=== PATIENT | female | born 1955 | race African-American/Black ===

== ENCOUNTER 2018-04-06 08:46 | Inpatient (IN) | payer OTHER ==
[2018-04-06] MEDS ORDERED: FAMOTIDINE 20 MG/50 ML IVPB 20 MG/50 ML MG IVPB ONE (09:30)
[2018-04-06] MEDS ORDERED: ONDANSETRON 4 MG/2 ML VIAL ONE (09:30)
--- NOTE | 2018-04-06 09:42 | PDOC ---
History of Present Illness - General Chief Complaint: Pain Stated Complaint: ABD PAIN Time Seen by Provider: 04/06/18 09:09 Past History - Past Medical History Allergies/Adverse Reactions: Allergies Allergy/AdvReac Type Severity Reaction Status Date / Time No Known Allergies Allergy Verified 04/06/18 08:51 Home Medications: Ambulatory Orders Clonazepam [Klonopin] 0.5 mg PO DAILY 07/04/14 Lisinopril [Prinivil -] 30 mg PO DAILY 07/04/14 Escitalopram Oxalate [Lexapro -] 20 mg PO DAILY #30 tablet 07/05/14 metFORMIN HCL [Glucophage -] 500 mg PO DAILY@0700 #30 tablet 07/05/14 Insulin (Levemir) [Levemir Vial] 20 unit SQ HS 04/06/18 Insulin Lispro [Humalog] 9 unit SQ AM 04/06/18 COPD: No Diabetes: Yes (niddm) HTN: Yes Psychiatric Problems: Yes (depression, anxiety) - Suicide/Smoking/Psychosocial Hx Smoking History: Current every day smoker Have you smoked in the past 12 months: Yes Number of Cigarettes Smoked Daily: 2 Information on smoking cessation initiated: Yes 'Breaking Loose' booklet given: 04/06/18 Hx Alcohol Use: No Drug/Substance Use Hx: No Substance Use Type: None *Physical Exam - Vital Signs Last Vital Signs Temp Pulse Resp BP Pulse Ox 98.8 F 93 H 18 162/79 100 04/06/18 08:52 04/06/18 08:52 04/06/18 08:52 04/06/18 08:52 04/06/18 08:52 *DC/Admit/Observation/Transfer - Referrals Referrals: Didi Anderson MD [Primary Care Provider] - - Patient Instructions - Post Discharge Activity
[2018-04-06] MEDS ORDERED: KETOROLAC TROMETHAMINE 30 MG/1 ML VIAL IVPUSH ONE (09:43)
[2018-04-06] MEDS ORDERED: ONDANSETRON 4 MG/2 ML VIAL IVPUSH ONE (09:43)
[2018-04-06] MEDS ORDERED: SODIUM CHLORIDE 1,000 ML IV STA ×2 (09:43→12:38)
[2018-04-06] MEDS ORDERED: KETOROLAC TROMETHAMINE 30 MG/1 ML VIAL ONE (09:53)
[2018-04-06 10:06] LABS: BASO % 0.8 % (0-2.0); HEMATOCRIT 44.6 % (32.4-45.2); HEMOGLOBIN 14.5 GM/dL (10.7-15.3); LYMPH % 9.4 % (8-40); MCH 28.2 pg (25.7-33.7); MCHC 32.4 g/dl (32.0-36.0); MEAN CELL VOLUME 86.9 fl (80-96); MEAN PLT VOLUME 8.7 fl (7.5-11.1); MONO % 2.6 % (3.8-10.2); NEUT % 87.2 % (42.8-82.8); PLATELET COUNT 416 K/MM3 (134-434); RBC 5.13 M/mm3 (3.60-5.2); RDW 13.9 % (11.6-15.6)
[2018-04-06 10:08] LABS: URINE APPEARANCE CLEAR; URINE BILIRUBIN NEGATIVE (<2.0 mg/dL); URINE COLOR LTYELLOW; URINE GLUCOSE (UA) 3+ (NEGATIVE); URINE KETONE 1+ (NEGATIVE); URINE LEUK ESTERASE NEGATIVE (NEGATIVE); URINE NITRITE NEGATIVE (NEGATIVE); URINE PROTEIN NEGATIVE (NEGATIVE); URINE UROBILINOGEN NEGATIVE mg/dL (0.2-1.0)
--- NOTE | 2018-04-06 10:26 | PDOC ---
History of Present Illness - General Chief Complaint: Pain Stated Complaint: ABD PAIN Time Seen by Provider: 04/06/18 09:09 History Source: Patient Exam Limitations: No Limitations - History of Present Illness Travel History: No Initial Comments: 04/06/18 10:00 62-year-old female with history of diabetes presents to ED with complaints of lower periumbilical cramping that awoke her from sleep at 2 AM associated intermittent nausea. Patient denies constipation, diarrhea, fever, chills or urinary complaints. Patient also denies recent change in medications, recent travel, recent illness. Patient states did eat late last night which consisted of cornbread and some meat but states her ate the same with no symptoms. Patient has no other complaints at this time including radiation of pain to the upper abdomen or back. Patient is no complaints of respiratory or cardiac symptoms Timing/Duration: reports: constant Quality: reports: mild, moderate, cramping Abdominal Pain Onset Location: reports: periumbilical Pain Radiation: reports: no radiation Activities at Onset: reports: none Aggravating Factors: improves with: None Alleviating Factors: improves with: None Past History - Travel Traveled outside of the country in the last 30 days: No - Past Medical History Allergies/Adverse Reactions: Allergies Allergy/AdvReac Type Severity Reaction Status Date / Time No Known Allergies Allergy Verified 04/06/18 08:51 Home Medications: Ambulatory Orders Clonazepam [Klonopin] 0.5 mg PO DAILY 07/04/14 Lisinopril [Prinivil -] 30 mg PO DAILY 07/04/14 Escitalopram Oxalate [Lexapro -] 20 mg PO DAILY #30 tablet 07/05/14 metFORMIN HCL [Glucophage -] 500 mg PO DAILY@0700 #30 tablet 07/05/14 Insulin (Levemir) [Levemir Vial] 20 unit SQ HS 04/06/18 Insulin Lispro [Humalog] 9 unit SQ AM 04/06/18 COPD: No Diabetes: Yes (niddm) HTN: Yes Psychiatric Problems: Yes (depression, anxiety) - Suicide/Smoking/Psychosocial Hx Smoking History: Current every day smoker Have you smoked in the past 12 months: Yes Number of Cigarettes Smoked Daily: 2 Information on smoking cessation initiated: Yes 'Breaking Loose' booklet given: 04/06/18 Hx Alcohol Use: No Drug/Substance Use Hx: No Substance Use Type: None Patient Lives Alone: No Lives with/in: spouse/SO Review of Systems - Review of Systems Able to Perform ROS?: No Constitutional: No: Symptoms Reported HEENTM: No: Symptoms Reported Respiratory: No: Symptoms reported Cardiac (ROS): No: Symptoms Reported ABD/GI: Yes: Nausea, Abdominal cramping. No: Constipated, Diarrhea, Poor Appetite, Poor Fluid Intake : No: Symptoms Reported Musculoskeletal: No: Symptoms Reported Integumentary: No: Symptoms Reported Neurological: No: Symptoms reported Endocrine: No: Symptoms Reported *Physical Exam - Vital Signs Last Vital Signs Temp Pulse Resp BP Pulse Ox 98.8 F 93 H 18 162/79 100 04/06/18 08:52 04/06/18 08:52 04/06/18 08:52 04/06/18 08:52 04/06/18 08:52 - Physical Exam General Appearance: Yes: Nourished, Appropriately Dressed. No: Apparent Distress HEENT: positive: Pharynx Normal, Pale Conjunctivae Neck: positive: Normal Thyroid, Supple Respiratory/Chest: positive: Lungs Clear, Normal Breath Sounds. negative: Respiratory Distress, Accessory Muscle Use Cardiovascular: positive: Regular Rhythm, Regular Rate. negative: Murmur Gastrointestinal/Abdominal: positive: Normal Bowel Sounds, Soft, Distended ( mild generalized), Tenderness (mild lower periumbilical with deep palpation). negative: Guarding, Rebound, Hernia, Mass Musculoskeletal: negative: CVA Tenderness Extremity: positive: Normal Capillary Refill. negative: Pedal Edema Integumentary: positive: Normal Color, Warm, Moist. negative: Rash Neurologic: positive: Motor Strength 5/5 (ambulatory) Heart Score/ECG Review - ECG Intrepretation Rhythm: Regular Rhythm (NSR 81, inverted T waves in v5, v6 I, avl. unchanged from 2013 and 2010) ED Treatment Course - LABORATORY CBC & Chemistry Diagram: 04/06/18 09:55 04/06/18 09:55 - ADDITIONAL ORDERS Additional order review: Laboratory Results 04/06/18 09:55 Urine Color Ltyellow Urine Appearance Clear Urine pH 5.0 Ur Specific [place] 1.028 Urine Protein Negative Urine Glucose (UA) 3+ H Urine Ketones 1+ H Urine Blood Negative Urine Nitrite Negative Urine Bilirubin Negative Urine Urobilinogen Negative Ur Leukocyte Esterase Negative 04/06/18 09:55 RBC 5.13 MCV 86.9 MCHC 32.4 RDW 13.9 MPV 8.7 Neutrophils % 87.2 H D Lymphocytes % 9.4 D Monocytes % 2.6 L Eosinophils % 0.0 D Basophils % 0.8 - RADIOLOGY Radiology Studies Ordered: Category Date Time Status KUB (KID UR & BLAD) [RAD] Stat Radiology 04/06/18 09:43 Ordered - Medications Given in the ED: ED Medications Discontinued Medications Generic Name Dose Route Start Last Admin Trade Name Reba PRN Reason Stop Dose Admin Ketorolac Tromethamine 30 mg 04/06/18 09:43 04/06/18 09:58 Toradol Injection - IVPUSH 04/06/18 09:44 30 mg ONCE ONE Administration Ondansetron HCl 4 mg 04/06/18 09:43 04/06/18 09:52 Zofran Injection IVPUSH 04/06/18 09:44 4 mg ONCE ONE Administration Medical Decision Making - Medical Decision Making 04/06/18 10:00 Patient with lower abdominal cramping since 2 AM this morning. Patient on exam with mild lower abdominal tenderness along with mild generalized abdominal distention. Patient ordered for labs, urine, KUB, antiemetics and IV fluids along with Toradol. 04/06/18 11:02 Laboratory Tests 04/06/18 04/06/18 04/06/18 09:55 09:55 09:55 WBC 15.0 H Hgb 14.5 Hct 44.6 Neutrophils % 87.2 H D Monocytes % 2.6 L Sodium 137 Potassium 4.3 Chloride 103 Carbon Dioxide 25 Anion Gap 9 BUN 20 H Creatinine 1.3 H Random Glucose 290 H Calcium 9.8 Total Bilirubin 0.2 AST 16 ALT 26 Alkaline Phosphatase 87 Creatine Kinase Lipase 232 Urine Glucose (UA) 3+ H Urine Ketones 1+ H Urine Nitrite Negative Ur Leukocyte Esterase Negative 04/06/18 10:50 WBC Hgb Hct Neutrophils % Monocytes % Sodium Potassium Chloride Carbon Dioxide Anion Gap BUN Creatinine Random Glucose Calcium Total Bilirubin AST ALT Alkaline Phosphatase Creatine Kinase Pending Lipase Urine Glucose (UA) Urine Ketones Urine Nitrite Ur Leukocyte Esterase pt ordered for abd ct w/ contrast to r/o diverticulitis. zosyn ordered 04/06/18 14:[address] Anderson Recommended to admit to the hospitalist. 04/06/18 14:28 Case discussed with hospice and is requesting results of CT prior to acceptance 04/06/18 15:[address] shows no diverticulitis and noted append. cecum thickening 15mm. Consult placed to Dr. Red. Admitted to med/ surg *DC/Admit/Observation/Transfer Diagnosis at time of Disposition: Sepsis, Abdominal pain - Discharge Dispostion Decision to Admit order: Yes - Referrals Referrals: Didi Anderson MD [Primary Care Provider] - - Patient Instructions - Post Discharge Activity
[2018-04-06 10:36] LABS: ANION GAP 9 (8-16); BLOOD UREA NITROGEN 20 mg/dL (7-18); CALCIUM 9.8 mg/dL (8.5-10.1); CHLORIDE 103 mmol/L (98-107); CO2 25 mmol/L (21-32); CREATININE 1.3 mg/dL (0.55-1.02); GLUCOSE,RANDOM 290 mg/dL (74-106); POTASSIUM 4.3 mmol/L (3.5-5.1); SGOT/AST 16 U/L (15-37); SGPT/ALT 26 U/L (12-78); SODIUM 137 mmol/L (136-145)
[2018-04-06 10:38] LABS: ALK PHOS 87 U/L (45-117); BILIRUBIN,TOTAL 0.2 mg/dL (0.2-1.0); TOT PROT 7.8 g/dl (6.4-8.2)
[2018-04-06 10:45] LABS: LIPASE 232 U/L (73-393)
--- NOTE | 2018-04-06 11:19 | EKG ---
Test Reason : Blood Pressure : / mmHG Vent. Rate : 081 BPM Atrial Rate : 081 BPM P-R Int : 138 ms QRS Dur : 078 ms QT Int : 384 ms P-R-T Axes : 067 036 125 degrees QTc Int : 446 ms NORMAL SINUS RHYTHM ABNORMAL ECG Confirmed by MD SANIYA, STEFAN ([id number]) on 04/06/2018 11:19:09 AM Referred By: Confirmed By:STEFAN KOTHARI MD
[2018-04-06] MEDS ORDERED: PIPERACILLIN/TAZOB 4.5 GM 4.5 GM in DEXTROSE 5%-WATER 100 ML IVPB ONE ×2 (12:44→19:00)
[2018-04-06] MEDS ORDERED: PIPERACILLIN/TAZOB 4.5 GM 4.5 GM/100 ML BAG IVPB ONE (13:08)
--- NOTE | 2018-04-06 16:09 | CONSULT ---
- Consultation REQUESTING PROVIDER: Satnam Red CONSULT REQUEST: We have been asked to surgically evaluate this patient for periumbilical pain, ? appy PCP: Bipin Klein MD HPI: Called to mil 62 yo female with PMHx as noted below, c/o acute onset of pain that began at 3AM...awoke her from her sleep. States pain started around her "belly button". Had a few episodes of nausea followed by non-bilious/non- bloody vomiting. Never radiated (remained localized). Never experienced this before. Never took anything to quell the abd pain/discomfort. Had a solid bm early this morning. Last meal eaten was dinner which consisted of meat and cornbread ( ate same meal and is asymptomatic). Patient states her last colonoscopy was ~ 3 years ago (Dr. Rome) and doesn't remember the results. She has a CT scan while in ED which identified questionable thickening of base of appendix, fills with contrast, note: diverticulois (not acute process), non- obstructive hiatal hernia, otherwise unremarkable study. Currently, resting comfortably w/o complaint. Denies n/v/f/c, CP, SOB, cough, loss of appetite, trauma. abdominal distension, melena, hematochezia, dysuria, frequency, urgency, hesitancy, hematuria, flank pain, bladder or bowel incontinence. Smoking History: Current every day smoker PMHx: NIDDM, Depression, Anxiety, HLD, DM, PAD PSHx: Denies. Home Meds Clonazepam [Klonopin] 0.5 mg PO DAILY Lisinopril [Prinivil -] 30 mg PO DAILY Escitalopram Oxalate [Lexapro -] 20 mg PO DAILY metFORMIN HCL [Glucophage -] 500 mg PO DAILY@0700 Insulin (Levemir) [Levemir Vial] 20 unit SQ HS Insulin Lispro [Humalog] 9 unit SQ AM Allergies: NKDA ROS: CONSTITUTIONAL: Absent: diaphoresis, generalized weakness, malaise, weight change CARDIOVASCULAR: Absent: syncope, palpitations, irregular heart rate, lightheadedness, peripheral edema RESPIRATORY: Absent: dyspnea with exertion, wheezing, stridor, hemoptysis GASTROINTESTINAL:Absent: see hpi. GENITOURINARY: Absent: see hpi. MUSCULOSKELETAL: Absent: myalgia, arthralgia, joint swelling, neck pain SKIN: Absent: rash, itching, pallor HEMATOLOGIC/IMMUNOLOGIC: Absent: easy bleeding, easy bruising, lymphadenopathy NEUROLOGIC: Absent: headache, focal weakness, paresthesias, dizziness, seizure, mental status changes, PSYCHIATRIC: Absent: anxiety, depression, suicidal or homicidal ideation, hallucinations. PE: GENERAL: A&Ox3 HEAD: NC.AT. EYES: PERRL, sclera anicteric, conjunctiva clear. NECK: Normal ROM, supple without lymphadenopathy, JVD, or masses. PULM: CTA bilat anteriorly. COR: RRR ABD: Soft, NT, ND, normoactive bowel sounds, NEGATIVE McBurney's/Psoas/Rovsing/ Obturator signs. BACK: Negative CVAT bilat UE: 2+ pulses, warm, well-perfused. No cyanosis. Cap refill <2 seconds. No peripheral edema. LE: 2+ pulses, warm, well-perfused. No calf tenderness. No peripheral edema. NEUROLOGICAL: Normal speech, gait not observed. PSYCH: Cooperative. Good eye contact. Appropriate mood and affect. SKIN: Warm, dry, normal turgor, no rashes or lesions noted. Last Vital Signs Temp Pulse Resp BP Pulse Ox 97.8 F 57 L 18 140/68 100 04/06/18 11:50 04/06/18 11:50 04/06/18 11:50 04/06/18 11:50 04/06/18 11:50 CBC, BMP 04/06/18 09:55 04/06/18 09:55 Urine Test Results Urine Color Ltyellow 04/06/18 09:55 Urine Appearance Clear 04/06/18 09:55 Urine pH 5.0 (5.0-8.0) 04/06/18 09:55 Ur Specific [place] 1.028 (1.001-1.035) 04/06/18 09:55 Urine Protein Negative (NEGATIVE) 04/06/18 09:55 Urine Glucose (UA) 3+ (NEGATIVE) H 04/06/18 09:55 Urine Ketones 1+ (NEGATIVE) H 04/06/18 09:55 Urine Blood Negative (NEGATIVE) 04/06/18 09:55 Urine Nitrite Negative (NEGATIVE) 04/06/18 09:55 Urine Bilirubin Negative (<2.0 mg/dL) 04/06/18 09:55 Ur Leukocyte Esterase Negative (NEGATIVE) 04/06/18 09:55 Problem List - Problems (1) Abdominal pain Assessment/Plan: Patient comes to ED with c/o periumbilical pain, doesn't radiate. Has a leukocytosis of 15K, afebrile and asymptomatic. CT scan with questionable thickening of base of appendix yet fills with contrast. Can't r/o developing early acute appendicitis at this time. 1. Admit for observation --> Hospitalist Service 2. NPO / IVF 3. Tight glycemic control 4. Cont IVABX --> Zosyn 5. ID/[place] consulted 6. Tylenol for fever > 100.3F 7. Coags 8. Will re-eval in AM Above plan discussed with Dr. Satnam Red and agrees. Code(s): R10.9 - UNSPECIFIED ABDOMINAL PAIN Qualifiers: Abdominal location: periumbilical Qualified Code(s): R10.33 - Periumbilical pain Visit type - Case Type Case Type: ED Admission - Emergency Emergency Visit: Yes ED Registration Date: 04/06/18 Care time: The patient presented to the Emergency Department on the above date and was hospitalized for further evaluation of their emergent condition. - New patient This patient is new to me today: Yes Date on this admission: 04/06/18
[2018-04-06] MEDS ORDERED: MORPHINE SULFATE 2 MG/ML VIAL IVPUSH PRN (16:34)
[2018-04-06] MEDS ORDERED: ACETAMINOPHEN 325 MG TABLET (FP) PO PRN (16:34)
[2018-04-06] MEDS ORDERED: SODIUM CHLORIDE 1,000 ML IV SCH (16:45)
--- NOTE | 2018-04-06 17:04 | HP ---
Admitting History and Physical - Primary Care Physician PCP: Dr. Cartagena - Admission History of Present Illness: 62 yo F h/o HLD, IDDM, HTN presented to the ED with abd pain since this morning. Last night she ate some cornbread then went to sleep, pain woke her up around 5am, located [facility] the center [facility], 8/10, constant, throbbing like, a/w nbnb vomiting, no alleviating or aggravating factors. She had not eaten any food since. Had a solid bowel movement this morning. Denies fever, chill, chest pain, shortness of breath, sick contact, urinary sx. History Source: Patient, Family Member - Past Medical History Cardiovascular: Yes: HTN, Hyperlipdemia, Other (PAD) Endocrine: Yes: Diabetes Mellitus - Smoking History Smoking history: Current every day smoker Have you smoked in the past 12 months: Yes Aproximately how many cigarettes per day: 2 - Alcohol/Substance Use Hx Alcohol Use: No - Social History ADL: Independent History of Recent Travel: No Home Medications - Allergies Allergies/Adverse Reactions: Allergies Allergy/AdvReac Type Severity Reaction Status Date / Time No Known Allergies Allergy Verified 04/06/18 08:51 - Home Medications Home Medications: Ambulatory Orders Clonazepam [Klonopin] 0.5 mg PO DAILY 07/04/14 Lisinopril [Prinivil -] 30 mg PO DAILY 07/04/14 Escitalopram Oxalate [Lexapro -] 20 mg PO DAILY #30 tablet 07/05/14 metFORMIN HCL [Glucophage -] 500 mg PO DAILY@0700 #30 tablet 07/05/14 Insulin (Levemir) [Levemir Vial] 20 unit SQ HS 04/06/18 Insulin Lispro [Humalog] 9 unit SQ AM 04/06/18 Review of Systems - Review of Systems Constitutional: reports: Loss of Appetite Cardiovascular: reports: No Symptoms Respiratory: reports: No Symptoms Gastrointestinal: reports: Abdominal Pain, Nausea, Vomiting. denies: Rectal Bleeding, Vomiting Blood Physical Examination Vital Signs: Vital Signs Temperature 98.2 F 04/06/18 16:15 Pulse Rate 68 04/06/18 16:15 Respiratory Rate 17 04/06/18 16:15 Blood Pressure 142/72 04/06/18 16:15 O2 Sat by Pulse Oximetry (%) 100 04/06/18 16:15 Constitutional: Yes: No Distress, Calm Eyes: Yes: Conjunctiva Clear, EOM Intact Neck: Yes: Supple, Trachea Midline Cardiovascular: Yes: Regular Rate and Rhythm Respiratory: Yes: CTA Bilaterally Gastrointestinal: Yes: Normal Bowel Sounds, Tenderness (LLQ, RLQ), Other ( negative rovsing sign, negative obturator sign). No: Tenderness, Rebound Edema: No Labs: CBC, BMP 04/06/18 09:55 04/06/18 09:55 Imaging - Results Cat Scan: Report Reviewed, Image Reviewed Assessment/Plan 62 yo F h/o HTN and IDDM admitted for suspected appendicits. Severe sepsis - likely 2/2 appendicitis - lactate normalized - CTAP unequivical - Cont. zosyn - NPO - NS 100cc/hr - T&S and coag tomorrow DAMIEN - unknown baseline - likely 2/2 severe sepsis - cont. to trend and hydrate HTN - cont. lisinipril IDDM - BGM and ISS FEN - NS 100cc/hr - replete lytes PRN - NPO DVT ppx: scds Karel Lackey PGY3 [phone] Visit type - Emergency Visit Emergency Visit: Yes ED Registration Date: 04/06/18 Care time: The patient presented to the Emergency Department on the above date and was hospitalized for further evaluation of their emergent condition. - New Patient This patient is new to me today: Yes Date on this admission: 04/07/18 - Critical Care Critical Care patient: No Hospitalist Screening - Colonoscopy Questionnaire Colonoscopy Questionnaire: Colonoscopy Questionnaire - Patient: 50 - 75 years old and never had a screening colonoscopy: Unknown History of colon or rectal polyps, or CA: Unknown History of IBD, Crohn's disease or UC: Unknown History of abdominal radiation therapy as a child: Unknown - Relative: 1 with colon or rectal CA, or polyps at age 60 or younger: Unknown Colon or rectal CA diagnosed at age 45 or younger: Unknown Multiple relatives with colon or rectal CA: Unknown - Outcome: Screening Result: Negative Screen
[2018-04-06] MEDS ORDERED: ACETAMINOPHEN 1000 MG/100 ML VIAL (NON FORMULARY) IVPB PRN (18:24)
[2018-04-06 18:25] VITALS: BMI 27.6
[2018-04-06] MEDS ORDERED: clonazePAM 0.5 MG TABLET PO SCH (18:30)
--- NOTE | 2018-04-06 18:31 | PN ---
Teaching Attending Note Name of Resident: Karel Lackey ATTENDING PHYSICIAN STATEMENT I saw and evaluated the patient. I reviewed the resident's note and discussed the case with the resident. I agree with the resident's findings and plan as documented with exceptions below. SUBJECTIVE: 62 yof with PMhx of HTN, HLD, IDDM, ?Depression/anxiety, was in her USOH till last evening when had cornbread, home cooked. Woke up around 5 AM with abdominal pain, generalized lower abdomen and smitha-umbilical region, sharp, associated with nausea, vomiting x 1 non bloody, bilious, prompting her to come to Ed. While in ED, her symptoms improved after receiving toradol and has been feeling better since. Is hungry. Denies any fevers, chills, dark or bloody stools or vomitus, diarrhea or changes in bowels, recent travel, antibiotics, sick contacts, similar prior history. s/p colonosocpy 3 years ago, reportedly non concerning. OBJECTIVE: Vital Signs Period Temp Pulse Resp BP Sys/Mendoza Pulse Ox Last 24 Hr 97.8 F-98.8 F 57-93 16-18 140-162/68-79 100-100 Intake & Output 04/03/18 04/04/18 04/05/18 04/06/18 23:59 23:59 23:59 23:59 Intake Total 1999 Balance 1999 Weight 176 lb 9.6 oz GENERAL: Awake, alert, and fully oriented, in no acute distress. HEAD: Normal with no signs of trauma. EYES: Pupils equal, round and reactive to light, extraocular movements intact, sclera anicteric, conjunctiva clear. No lid lag. EARS, NOSE, THROAT: Ears normal, nares patent, oropharynx clear without exudates. Mildly dry mucous membrane NECK: Soft, supple, no JVD LUNGS: Breath sounds equal, clear to auscultation bilaterally. No wheezes, and no crackles. No accessory muscle use. HEART: S1S2 regular ABDOMEN: Soft, obese, mild tenderness in LMQ, smitha-umbilical region, no tenderness in RLQ or LLQ or lower abdomen currently, no voluntary or involuntary guarding or rigidity, neg for rebound tenderness, neg ROvsing's sign , positive bowel sounds. MUSCULOSKELETAL: Normal range of motion at all joints. No bony deformities or tenderness. No CVA tenderness. UPPER EXTREMITIES: 2+ pulses, warm, well-perfused. No cyanosis. No clubbing. No peripheral edema. LOWER EXTREMITIES: 2+ pulses, warm, well-perfused. No calf tenderness. No peripheral edema. NEUROLOGICAL: Cranial nerves II-XII intact. Normal speech. Gait deferred PSYCHIATRIC: Cooperative. Good eye contact. Appropriate mood and affect. SKIN: Warm, dry, normal turgor, no rashes or lesions noted, normal capillary refill. Home Medications Medication Instructions Recorded Clonazepam [Klonopin] 0.5 mg PO DAILY 07/04/14 Lisinopril [Prinivil -] 30 mg PO DAILY 07/04/14 Escitalopram Oxalate [Lexapro -] 20 mg PO DAILY #30 tablet 07/05/14 metFORMIN HCL [Glucophage -] 500 mg PO DAILY@0700 #30 tablet 07/05/14 Insulin (Levemir) [Levemir Vial] 20 unit SQ HS 04/06/18 Insulin Lispro [Humalog] 9 unit SQ AM 04/06/18 Active Medications Acetaminophen (Ofirmev Injection -) 1,000 mg IVPB Q6H PRN PRN Reason: PAIN LEVEL 6-10 Clonazepam (Klonopin -) 0.5 mg PO DAILY [facility] Sodium Chloride (Normal Saline -) 1,000 mls @ 100 mls/hr IV ASDIR [facility] Last Admin: 04/06/18 18:13 Dose: 100 mls/hr Piperacillin Sod/Tazobactam (Sod 4.5 gm/ Dextrose) 100 mls @ 200 mls/hr IVPB ONCE ONE; Protocol Stop: 04/06/18 19:29 Piperacillin Sod/Tazobactam (Sod 4.5 gm/ Dextrose) 100 mls @ 200 mls/hr IVPB ONCE ONE; Protocol Stop: 04/07/18 01:29 Piperacillin Sod/Tazobactam (Sod 4.5 gm/ Dextrose) 100 mls @ 200 mls/hr IVPB ONCE ONE; Protocol Stop: 04/07/18 07:29 Insulin Aspart (Novolog Vial Sliding Scale -) 1 vial SQ Q6HPO [facility]; Protocol Lisinopril (Prinivil) 30 mg PO DAILY [facility] Morphine Sulfate (Morphine Sulfate) 1 mg IVPUSH Q4H PRN PRN Reason: PAIN LEVEL 7 - 10 Pantoprazole Sodium (Protonix Iv) 40 mg IVPUSH DAILY [facility] Laboratory Results - last 24 hr 04/06/18 04/06/18 04/06/18 09:55 09:55 09:55 WBC 15.0 H RBC 5.13 Hgb 14.5 Hct 44.6 MCV 86.9 MCH 28.2 MCHC 32.4 RDW 13.9 Plt Count 416 D MPV 8.7 Absolute Neuts (auto) 13.0 Neutrophils % 87.2 H D Lymphocytes % 9.4 D Monocytes % 2.6 L Eosinophils % 0.0 D Basophils % 0.8 Nucleated RBC % 0 Sodium 137 Potassium 4.3 Chloride 103 Carbon Dioxide 25 Anion Gap 9 BUN 20 H Creatinine 1.3 H Creat Clearance w eGFR 41.64 Random Glucose 290 H Lactic Acid Calcium 9.8 Total Bilirubin 0.2 AST 16 ALT 26 Alkaline Phosphatase 87 Creatine Kinase Troponin I Total Protein 7.8 Albumin 4.0 Lipase 232 Urine Color Ltyellow Urine Appearance Clear Urine pH 5.0 Ur Specific Lynch 1.028 Urine Protein Negative Urine Glucose (UA) 3+ H Urine Ketones 1+ H Urine Blood Negative Urine Nitrite Negative Urine Bilirubin Negative Urine Urobilinogen Negative Ur Leukocyte Esterase Negative 04/06/18 04/06/18 04/06/18 10:50 11:12 13:15 WBC RBC Hgb Hct MCV MCH MCHC RDW Plt Count MPV Absolute Neuts (auto) Neutrophils % Lymphocytes % Monocytes % Eosinophils % Basophils % Nucleated RBC % Sodium Potassium Chloride Carbon Dioxide Anion Gap BUN Creatinine Creat Clearance w eGFR Random Glucose Lactic Acid 2.3 H* 1.7 Calcium Total Bilirubin AST ALT Alkaline Phosphatase Creatine Kinase 102 Troponin I < 0.02 Total Protein Albumin Lipase Urine Color Urine Appearance Urine pH Ur Specific Lynch Urine Protein Urine Glucose (UA) Urine Ketones Urine Blood Urine Nitrite Urine Bilirubin Urine Urobilinogen Ur Leukocyte Esterase CT A/P results reviewed- reterograde filling of appendix, ?appendicitis vs cecal lesion ASSESSMENT AND PLAN: 62 yof with PMhx of HTN, IDDM, HLD, admitted with abdominal pain, nausea, vomiting, found with SIRS, Possible appendicitis vs cecal lesion. -SIRS, ?Appendicitis vs cecal lesion vs Gastroenteritis (Low on differential) -DAMIEN, likely from vomiting, dehydration, r/o sepsis -Lactic acidosis, from above +/- metformin, seems more from hypovolumia than sepsis -HTN -HLD -IDDM -Depression/anxiety Plan: Discussed with SUrgery MARTÍN Rashid and Infectious Disease Dr. Alonso. CLinical exam not fully consistent with acute appendicitis. However reterograde filling of appendix, cannot r/o the same vs appendix vs cecal lesion. Zosyn, NPO, aggressive IVF, serial abdominal exams. Avoid narcotics unless severe pain to avoid masking of symptoms. Tylenol/Zofran prn. PPI IV. Follow up with surgery for possible intervention. Repeat CT scan, based on clinical course. HOld metformin, Levemir. BGM q6h with ISS HOld ACEI. Ativan IV prn till able to take PO. Escitalopram when able to take PO. DVTPPX with heparin. Dispo pending clinical improvement. Plan discussed with patient in detail, all questions answered. Patient relays full understanding of current CT scan findings, need for close monitoring and agreable with the plan. Total admit time 65 min.
[2018-04-06] MEDS ORDERED: LORazepam 2 MG/ML SDV VIAL IVPUSH PRN (18:59)
[2018-04-06] MEDS: SODIUM CHLORIDE 1,000 ML IV SCH (19:17)
[2018-04-06] MEDS ORDERED: PIPERACILLIN/TAZOBACTAM 4.5 GM VIAL IVPB ONE (19:19)
[2018-04-06] MEDS: LISINOPRIL 20 MG TABLET (FP) PO SCH (19:26)
[2018-04-06] MEDS: INSULIN SLIDING SCALE (NOVOLOG) 1 VIAL SQ SCH (19:27)
--- NOTE | 2018-04-06 20:55 | CON.ID ---
Consult Consult Specialty:: infectious diseases Referred by:: Reason for Consultation:: abd pain,appendicitis - History of Present Illness Chief Complaint: abd pain History of Present Illness: 62-year-old female with history of diabetes presents to ED with complaints of lower periumbilical cramping that awoke her from sleep at 2 AM associated intermittent nausea. according to the patient this happened all suddenly currently patient is stable and doing well.pain still present but much better - History Source History Provided By: Patient Limitations to Obtaining History: No Limitations - Past Medical History Cardio/Vascular: Yes: HTN, Hyperlipdemia, Other (PAD) ...: No Endocrine: Yes: Diabetes Mellitus - Alcohol/Substance Use Hx Alcohol Use: No - Smoking History Smoking history: Current some day smoker Have you smoked in the past 12 months: Yes Aproximately how many cigarettes per day: 2 - Social History ADL: Independent History of Recent Travel: No Home Medications - Allergies Allergies/Adverse Reactions: Allergies Allergy/AdvReac Type Severity Reaction Status Date / Time No Known Allergies Allergy Verified 04/06/18 08:51 - Home Medications Home Medications: Ambulatory Orders Clonazepam [Klonopin] 0.5 mg PO DAILY 07/04/14 Lisinopril [Prinivil -] 30 mg PO DAILY 07/04/14 Escitalopram Oxalate [Lexapro -] 20 mg PO DAILY #30 tablet 07/05/14 metFORMIN HCL [Glucophage -] 500 mg PO DAILY@0700 #30 tablet 07/05/14 Insulin (Levemir) [Levemir Vial] 20 unit SQ HS 04/06/18 Insulin Lispro [Humalog] 9 unit SQ AM 04/06/18 Review of Systems - Review of Systems Constitutional: reports: No Symptoms Eyes: reports: No Symptoms HENT: reports: No Symptoms Neck: reports: No Symptoms Cardiovascular: reports: No Symptoms Respiratory: reports: No Symptoms Gastrointestinal: reports: Abdominal Pain, Nausea Musculoskeletal: reports: No Symptoms Integumentary: reports: No Symptoms Neurological: reports: No Symptoms Endocrine: reports: No Symptoms Hematology/Lymphatic: reports: No Symptoms Psychiatric: reports: No Symptoms Physical Exam Vital Signs: Vital Signs Temperature 98.2 F 04/06/18 18:14 Pulse Rate 78 04/06/18 18:14 Respiratory Rate 18 04/06/18 18:14 Blood Pressure 147/73 04/06/18 18:14 O2 Sat by Pulse Oximetry (%) 95 04/06/18 18:31 Constitutional: Yes: Well Nourished, Calm, Mild Distress Eyes: Yes: Conjunctiva Clear Cardiovascular: Yes: Regular Rate and Rhythm Respiratory: Yes: Regular, CTA Bilaterally Gastrointestinal: Yes: Normal Bowel Sounds, Soft Musculoskeletal: Yes: WNL Extremities: Yes: WNL Neurological: Yes: Alert, Oriented Psychiatric: Yes: Alert, Oriented Labs: CBC, BMP 04/06/18 09:55 04/06/18 09:55 Imaging - Results X-ray: Report Reviewed, Image Reviewed Cat Scan: Report Reviewed, Image Reviewed Assessment/Plan 62 yof with PMhx of HTN, IDDM, HLD, admitted with abdominal pain, nausea, vomiting, coming in with some pathology in her cecal region and dehydration and retorocecal filling of the appendix cannot conclusively say it is appendicitis - -DAMIEN, l -Lactic acidosis, -HTN -HLD -IDDM -Depression/anxiety plan wahl start patient on iv abx close watch on the patient monitor how the patient does hydration rest as per the team
[2018-04-06] MEDS: HEPARIN NA (PORCINE) 5,000 UNITS/ML 1ML VIAL SQ SCH (21:21)
[2018-04-06] MEDS ORDERED: INSULIN SLIDING SCALE (NOVOLOG) 1 VIAL SQ SCH (22:00)
[2018-04-07] MEDS: INSULIN SLIDING SCALE (NOVOLOG) 1 VIAL SQ SCH ×4 (00:01→19:05)
[2018-04-07] MEDS ORDERED: DEXTROSE 5%-WATER - 50 ML IVPB ONE ×3 (00:58→19:10)
[2018-04-07] MEDS ORDERED: PIPERACILLIN/TAZOBACTAM 3.375 GM VIAL IVPB ONE ×3 (00:58→19:10)
[2018-04-07] MEDS ORDERED: PIPERACILLIN/TAZOB 4.5 GM 4.5 GM in DEXTROSE 5%-WATER 100 ML IVPB ONE ×2 (01:00→07:00)
[2018-04-07] MEDS: PIPERACILLIN/TAZOB 3.375 GM 3.375 GM in DEXTROSE 5%-WATER - 50 ML IVPB SCH ×3 (01:18→19:24)
[2018-04-07] MEDS: SODIUM CHLORIDE 1,000 ML IV SCH ×2 (03:32→12:26)
[2018-04-07] MEDS: HEPARIN NA (PORCINE) 5,000 UNITS/ML 1ML VIAL SQ SCH ×3 (05:32→22:07)
[2018-04-07 07:29] LABS: BASO % 1.3 % (0-2.0); EOS % 2.3 % (0-4.5); HEMATOCRIT 33.4 % (32.4-45.2); HEMOGLOBIN 11.2 GM/dL (10.7-15.3); LYMPH % 41.6 % (8-40); MCH 29.2 pg (25.7-33.7); MCHC 33.5 g/dl (32.0-36.0); MEAN CELL VOLUME 87.1 fl (80-96); MEAN PLT VOLUME 8.5 fl (7.5-11.1); MONO % 5.3 % (3.8-10.2); NEUT % 49.5 % (42.8-82.8); PLATELET COUNT 316 K/MM3 (134-434); RBC 3.83 M/mm3 (3.60-5.2); RDW 13.9 % (11.6-15.6); WHITE BLOOD COUNT 7.3 K/mm3 (4.0-10.0)
[2018-04-07 07:36] LABS: INR 1.01 (0.82-1.09); PROTHROMBIN TIME (PATIENT) 11.4 SEC (9.7-13.0)
[2018-04-07 07:39] LABS: ACTIVATED PTT 27.2 SECONDS (25.2-36.5)
[2018-04-07 07:55] LABS: ANION GAP 6 (8-16); BLOOD UREA NITROGEN 16 mg/dL (7-18); CALCIUM 8.7 mg/dL (8.5-10.1); CHLORIDE 110 mmol/L (98-107); CO2 28 mmol/L (21-32); CREATININE 1.2 mg/dL (0.55-1.02); GLUCOSE,RANDOM 171 mg/dL (74-106); MAGNESIUM 1.9 mg/dL (1.8-2.4); POTASSIUM 4.7 mmol/L (3.5-5.1); SODIUM 144 mmol/L (136-145)
--- NOTE | 2018-04-07 09:09 | PN ---
Progress Note (short form) - Note Progress Note: Pt without any complaints today, no nausea since admission. Abdominal pain improved and didn't receive any pain medications overnight. Vital Signs Period Temp Pulse Resp BP Sys/Mendoza Pulse Ox Last 24 Hr 97.6 F-98.3 F 57-78 16-18 102-150/56-79 95-100 GEN: A&0x3, NAD ABD: soft, non-distended, mild RLQ pain with deep palpation. No guarding or rebound. CBC, BMP 04/07/18 06:06 04/07/18 06:06 A/p: 62 yo female admitted for abdominal pain/observation Pt seen this am and pain/nausea symptoms improved. Leukocytosis improved and she remains afebrile. Pt on IV abx zosyn as per ID. Urine culture negative/blood cultures pending. Pt seen with Dr. Red this am and care plan discussed. No evidence of an acute surgical abdomen. Care per the primary medical team, recommend to advance diet as tolerated.
[2018-04-07] MEDS ORDERED: PNEUMOC 13-VAL CONJ-DIP CRM/PF 0.5 ML DISP.SYRIN IM ONE (10:00)
[2018-04-07] MEDS: LISINOPRIL 20 MG TABLET (FP) PO SCH (10:15)
[2018-04-07] MEDS: PANTOPRAZOLE SODIUM 40 MG VIAL IVPUSH SCH (10:16)
[2018-04-07] MEDS ORDERED: INSULIN (NOVOLOG) ASPART 100 UNITS/ML 10ML VIAL ONE ×2 (12:23→21:44)
--- NOTE | 2018-04-07 12:25 | PN ---
Progress Note, Physician History of Present Illness: no pain comfortable tolerated liquids no issues - Current Medication List Current Medications: Active Medications Acetaminophen (Ofirmev Injection -) 1,000 mg IVPB Q6H PRN PRN Reason: PAIN LEVEL 6-10 Heparin Sodium (Porcine) (Heparin -) 5,000 unit SQ TID [facility] Last Admin: 04/07/18 05:32 Dose: 5,000 unit Sodium Chloride (Normal Saline -) 1,000 mls @ 125 mls/hr IV ASDIR [facility] Last Admin: 04/07/18 03:32 Dose: 125 mls/hr Piperacillin Sod/Tazobactam (Sod 3.375 gm/ Dextrose) 50 mls @ 100 mls/hr IVPB Q8H-IV [facility]; Protocol Last Admin: 04/07/18 10:17 Dose: 100 mls/hr Insulin Aspart (Novolog Vial Sliding Scale -) 1 vial SQ Q6HPO [facility]; Protocol Last Admin: 04/07/18 05:35 Dose: Not Given Lisinopril (Prinivil) 30 mg PO DAILY [facility] Last Admin: 04/07/18 10:15 Dose: 30 mg Lorazepam (Ativan Injection -) 0.5 mg IVPUSH DAILY PRN PRN Reason: ANXIETY Pantoprazole Sodium (Protonix Iv) 40 mg IVPUSH DAILY [facility] Last Admin: 04/07/18 10:16 Dose: 40 mg - Objective Vital Signs: Vital Signs Temperature 98.4 F 04/07/18 09:00 Pulse Rate 73 04/07/18 09:00 Respiratory Rate 18 04/07/18 09:00 Blood Pressure 115/62 04/07/18 09:00 O2 Sat by Pulse Oximetry (%) 98 04/06/18 21:00 Constitutional: Yes: No Distress, Calm Cardiovascular: Yes: Regular Rate and Rhythm Respiratory: Yes: Regular, CTA Bilaterally Gastrointestinal: Yes: Normal Bowel Sounds, Soft Musculoskeletal: Yes: WNL Extremities: Yes: WNL Neurological: Yes: Alert, Oriented Psychiatric: Yes: Alert, Oriented Labs: CBC, BMP 04/07/18 06:06 04/07/18 06:06 INR, PTT INR 1.01 (0.82-1.09) 04/07/18 06:06 Assessment/Plan 62 yof with PMhx of HTN, IDDM, HLD, admitted with abdominal pain, nausea, vomiting, coming in with some pathology in her cecal region and dehydration and retorocecal filling of the appendix cannot conclusively say it is appendicitis - -DAMIEN, l -Lactic acidosis, -HTN -HLD -IDDM -Depression/anxiety plan continue iv abx i think we should repeat a ct tomorrow if no change and patients diet is advance wahl witch to oral abx then patient can be followed as an out patient
[2018-04-07] MEDS ORDERED: clonazePAM 0.5 MG TABLET PO PRN (15:56)
[2018-04-07] MEDS ORDERED: SODIUM CHLORIDE 1,000 ML IV SCH (15:57)
--- NOTE | 2018-04-07 16:00 | PN ---
Teaching Attending Note Name of Resident: Ema Olson ATTENDING PHYSICIAN STATEMENT I saw and evaluated the patient. I reviewed the resident's note and discussed the case with the resident. I agree with the resident's findings and plan as documented with exceptions below. SUBJECTIVE: patient seen and examined. denies any nausea, vomiting, abdominal pain or diarrhea. Feels good. OBJECTIVE: Vital Signs Period Temp Pulse Resp BP Sys/Mendoza Pulse Ox Last 24 Hr 97.6 F-98.4 F 57-78 16-18 102-150/56-79 95-100 Intake & Output 04/04/18 04/05/18 04/06/18 04/07/18 23:59 23:59 23:59 23:59 Intake Total 2049 1924 Balance 2049 1924 Weight 176 lb 9.6 oz General: lying in bed in no acute distress Abdomen:soft obese, NT throughout, no RLQ or smitha-umbilical tenderness noted today, positive bowel sounds, no voluntary or involuntary guarding or rigidity Home Medications Medication Instructions Recorded Clonazepam [Klonopin] 0.5 mg PO DAILY 07/04/14 Lisinopril [Prinivil -] 30 mg PO DAILY 07/04/14 Escitalopram Oxalate [Lexapro -] 20 mg PO DAILY #30 tablet 07/05/14 Insulin (Levemir) [Levemir Vial] 20 unit SQ HS 04/06/18 Insulin Lispro [Humalog] 10 unit SQ BID 04/06/18 Canagliflozin [Invokana] 100 mg PO DAILY 04/07/18 Ergocalciferol (Vitamin D2) 50,000 mg PO WEEKLY 04/07/18 [Vitamin D2] Pravastatin Sodium 20 mg PO DAILY 04/07/18 Repaglinide 2 mg PO TID 04/07/18 Trazodone HCl 100 mg PO DAILY 04/07/18 metFORMIN HCL [Glucophage -] 500 mg PO BID 04/07/18 Active Medications Acetaminophen (Ofirmev Injection -) 1,000 mg IVPB Q6H PRN PRN Reason: PAIN LEVEL 6-10 Clonazepam (Klonopin -) 0.5 mg PO DAILY PRN PRN Reason: ANXIETY Heparin Sodium (Porcine) (Heparin -) 5,000 unit SQ TID [facility] Last Admin: 04/07/18 05:32 Dose: 5,000 unit Piperacillin Sod/Tazobactam (Sod 3.375 gm/ Dextrose) 50 mls @ 100 mls/hr IVPB Q8H-IV [facility]; Protocol Last Admin: 04/07/18 10:17 Dose: 100 mls/hr Sodium Chloride (Normal Saline -) 1,000 mls @ 100 mls/hr IV ASDIR [facility] Insulin Aspart (Novolog Vial Sliding Scale -) 1 vial SQ Q6HPO [facility]; Protocol Last Admin: 04/07/18 12:24 Dose: 4 units Insulin Detemir (Levemir Vial) 10 units SQ HS [facility] Lisinopril (Prinivil) 30 mg PO DAILY [facility] Last Admin: 04/07/18 10:15 Dose: 30 mg Pantoprazole Sodium (Protonix Iv) 40 mg IVPUSH DAILY [facility] Last Admin: 04/07/18 10:16 Dose: 40 mg Laboratory Results - last 24 hr 04/06/18 04/07/18 04/07/18 19:26 00:00 05:33 WBC RBC Hgb Hct MCV MCH MCHC RDW Plt Count MPV Absolute Neuts (auto) Neutrophils % Lymphocytes % Monocytes % Eosinophils % Basophils % Nucleated RBC % PT with INR INR PTT (Actin FS) Sodium Potassium Chloride Carbon Dioxide Anion Gap BUN Creatinine Creat Clearance w eGFR POC Glucometer 150 179 171 Random Glucose Calcium Magnesium Blood Type Antibody Screen 04/07/18 04/07/18 04/07/18 06:06 06:06 06:06 WBC 7.3 RBC 3.83 Hgb 11.2 Hct 33.4 D MCV 87.1 MCH 29.2 MCHC 33.5 RDW 13.9 Plt Count 316 D MPV 8.5 Absolute Neuts (auto) 3.6 Neutrophils % 49.5 D Lymphocytes % 41.6 H D Monocytes % 5.3 D Eosinophils % 2.3 D Basophils % 1.3 Nucleated RBC % 0 PT with INR INR PTT (Actin FS) Sodium 144 Potassium 4.7 Chloride 110 H Carbon Dioxide 28 Anion Gap 6 L BUN 16 Creatinine 1.2 H Creat Clearance w eGFR 45.67 POC Glucometer Random Glucose 171 H Calcium 8.7 Magnesium 1.9 Blood Type A NEGATIVE Antibody Screen Negative 04/07/18 04/07/18 04/07/18 06:06 09:00 12:22 WBC RBC Hgb Hct MCV MCH MCHC RDW Plt Count MPV Absolute Neuts (auto) Neutrophils % Lymphocytes % Monocytes % Eosinophils % Basophils % Nucleated RBC % PT with INR 11.40 INR 1.01 PTT (Actin FS) 27.2 Sodium Potassium Chloride Carbon Dioxide Anion Gap BUN Creatinine Creat Clearance w eGFR POC Glucometer 290 Random Glucose Calcium Magnesium Blood Type A NEGATIVE Antibody Screen Microbiology 04/06/18 11:15 Blood - Peripheral Venous Blood Culture - Preliminary NO GROWTH OBTAINED AFTER 24 HOURS, INCUBATION TO CONTINUE FOR 4 DAYS. 04/06/18 11:15 Blood - Peripheral Venous Blood Culture - Preliminary NO GROWTH OBTAINED AFTER 24 HOURS, INCUBATION TO CONTINUE FOR 4 DAYS. 04/06/18 10:20 Urine - Urine Clean Catch Urine Culture - Final NO GROWTH OBTAINED ASSESSMENT AND PLAN: 62 yof with PMhx of HTN, IDDM, HLD, admitted with abdominal pain, nausea, vomiting, found with SIRS, Possible appendicitis vs cecal lesion. -SIRS, ?Appendicitis vs cecal lesion vs Gastroenteritis -DAMIEN, likely from vomiting, dehydration, r/o sepsis -Lactic acidosis, from above +/- metformin, seems more from hypovolumia than sepsis -HTN -HLD -IDDM -Depression/anxiety Plan: Surgery/ID input noted. Advance to clears. Serial exams.Repeat CT A/P tomorrow, transition to PO accordingly if continues to improve. Decrease IVF. Hold ACEi for now. Resume levemir at 10 units hs, ISS, diabetic diet. Resume clonazepam/trazodone/lexapro. DVTPPX with heparin Dispoin 24-48 hours pending clinical improvement and repeat imaging. Plan discussed with patient in detail, all questions answered.
--- NOTE | 2018-04-07 18:17 | PN ---
Physical Exam: SUBJECTIVE: Patient seen and examined this morning at bedside while eating her breakfast. No longer in any pain. Denies any fevers, chills, chest pain, SOB, nausea, vomiting, diarrhea, constipation. OBJECTIVE: Vital Signs Period Temp Pulse Resp BP Sys/Mendoza Pulse Ox Last 24 Hr 97.6 F-98.4 F 57-73 16-18 102-150/56-79 95-98 GENERAL: The patient is awake, alert, and fully oriented, in no acute distress, eating her breakfast. LUNGS: Breath sounds equal, clear to auscultation bilaterally, no wheezes, no crackles HEART: Regular rate and rhythm, S1, S2 without murmur, rub or gallop. ABDOMEN: Soft, nontender, nondistended, normoactive bowel sounds Laboratory Results - last 24 hr 04/06/18 04/07/18 04/07/18 19:26 00:00 05:33 WBC RBC Hgb Hct MCV MCH MCHC RDW Plt Count MPV Absolute Neuts (auto) Neutrophils % Lymphocytes % Monocytes % Eosinophils % Basophils % Nucleated RBC % PT with INR INR PTT (Actin FS) Sodium Potassium Chloride Carbon Dioxide Anion Gap BUN Creatinine Creat Clearance w eGFR POC Glucometer 150 179 171 Random Glucose Calcium Magnesium Blood Type Antibody Screen 04/07/18 04/07/18 04/07/18 06:06 06:06 06:06 WBC 7.3 RBC 3.83 Hgb 11.2 Hct 33.4 D MCV 87.1 MCH 29.2 MCHC 33.5 RDW 13.9 Plt Count 316 D MPV 8.5 Absolute Neuts (auto) 3.6 Neutrophils % 49.5 D Lymphocytes % 41.6 H D Monocytes % 5.3 D Eosinophils % 2.3 D Basophils % 1.3 Nucleated RBC % 0 PT with INR INR PTT (Actin FS) Sodium 144 Potassium 4.7 Chloride 110 H Carbon Dioxide 28 Anion Gap 6 L BUN 16 Creatinine 1.2 H Creat Clearance w eGFR 45.67 POC Glucometer Random Glucose 171 H Calcium 8.7 Magnesium 1.9 Blood Type A NEGATIVE Antibody Screen Negative 04/07/18 04/07/18 04/07/18 06:06 09:00 12:22 WBC RBC Hgb Hct MCV MCH MCHC RDW Plt Count MPV Absolute Neuts (auto) Neutrophils % Lymphocytes % Monocytes % Eosinophils % Basophils % Nucleated RBC % PT with INR 11.40 INR 1.01 PTT (Actin FS) 27.2 Sodium Potassium Chloride Carbon Dioxide Anion Gap BUN Creatinine Creat Clearance w eGFR POC Glucometer 290 Random Glucose Calcium Magnesium Blood Type A NEGATIVE Antibody Screen 04/07/18 17:23 WBC RBC Hgb Hct MCV MCH MCHC RDW Plt Count MPV Absolute Neuts (auto) Neutrophils % Lymphocytes % Monocytes % Eosinophils % Basophils % Nucleated RBC % PT with INR INR PTT (Actin FS) Sodium Potassium Chloride Carbon Dioxide Anion Gap BUN Creatinine Creat Clearance w eGFR POC Glucometer 111 Random Glucose Calcium Magnesium Blood Type Antibody Screen Microbiology 04/06/18 11:15 Blood - Peripheral Venous Blood Culture - Preliminary NO GROWTH OBTAINED AFTER 24 HOURS, INCUBATION TO CONTINUE FOR 4 DAYS. 04/06/18 11:15 Blood - Peripheral Venous Blood Culture - Preliminary NO GROWTH OBTAINED AFTER 24 HOURS, INCUBATION TO CONTINUE FOR 4 DAYS. 04/06/18 10:20 Urine - Urine Clean Catch Urine Culture - Final NO GROWTH OBTAINED Active Medications Acetaminophen (Ofirmev Injection -) 1,000 mg IVPB Q6H PRN PRN Reason: PAIN LEVEL 6-10 Clonazepam (Klonopin -) 0.5 mg PO Q24H PRN PRN Reason: ANXIETY Escitalopram Oxalate (Lexapro -) 20 mg PO DAILY [facility] Heparin Sodium (Porcine) (Heparin -) 5,000 unit SQ TID [facility] Last Admin: 04/07/18 16:17 Dose: Not Given Piperacillin Sod/Tazobactam (Sod 3.375 gm/ Dextrose) 50 mls @ 100 mls/hr IVPB Q8H-IV [facility]; Protocol Last Admin: 04/07/18 19:24 Dose: 100 mls/hr Sodium Chloride (Normal Saline -) 1,000 mls @ 100 mls/hr IV ASDIR [facility] Insulin Aspart (Novolog Vial Sliding Scale -) 1 vial SQ Q6HPO [facility]; Protocol Last Admin: 04/07/18 19:05 Dose: Not Given Insulin Detemir (Levemir Vial) 10 units SQ HS [facility] Pantoprazole Sodium (Protonix Iv) 40 mg IVPUSH DAILY [facility] Last Admin: 04/07/18 10:16 Dose: 40 mg Trazodone HCl (Desyrel -) 100 mg PO HS [facility] ASSESSMENT/PLAN: 62 yo F with PMhx of HTN, IDDM, admitted with abdominal pain, nausea, vomiting 1. SIRS - Appendicitis vs cecal lesion - Lactic acid: 2.3 --> 1.7 - CT A/P: Findings at the origin of the appendix suggest appendicitis, unusual for the appendix to fill retrograde with oral contrast. A cecal lesion could give a similar picture. No surrounding adenopathy is seen. - KUB: Nonspecific, nonobstructive gas pattern - Continue Zosyn - Surgery consulted, Appreciate rec's - ID Consulted, appreciate rec's, J[place] repeat CT scan tmrw - Serial abdominal exams - Blood cultures pending - Urine Cultures Negative 2. DAMIEN - unknown baseline, Cr around 1.2 - Normal Saline 1,000 mls @ 100 mls/hr - Hold lisinipril 3. IDDM - BGM, ISS - Continue Insulin Novolog Sliding Scale SQ Q6HPO [facility] - Continue Insulin Levemir 10 units SQ HS [facility] - Diabetic diet 4. FEN - Normal Saline 1,000 mls @ 100 mls/hr - Replete lytes - Advance diet to clears 5. PPx - DVT: Heparin Dispo: Pending repeat CT Visit type - Emergency Visit Emergency Visit: Yes ED Registration Date: 04/06/18 Care time: The patient presented to the Emergency Department on the above date and was hospitalized for further evaluation of their emergent condition. - New Patient This patient is new to me today: Yes Date on this admission: 04/07/18 - Critical Care Critical Care patient: No
[2018-04-07] MEDS ORDERED: INSULIN (LEVEMIR) 100 UNITS/ML UNITS SQ SCH (22:00)
[2018-04-07] MEDS ORDERED: traZODone HCL 50 MG TABLET (FP) PO SCH (22:00)
[2018-04-08] MEDS: INSULIN SLIDING SCALE (NOVOLOG) 1 VIAL SQ SCH ×3 (00:07→13:39)
[2018-04-08] MEDS ORDERED: PIPERACILLIN/TAZOBACTAM 3.375 GM VIAL IVPB ONE ×2 (01:04→09:26)
[2018-04-08] MEDS ORDERED: DEXTROSE 5%-WATER - 50 ML IVPB ONE ×2 (01:05→09:26)
[2018-04-08] MEDS: PIPERACILLIN/TAZOB 3.375 GM 3.375 GM in DEXTROSE 5%-WATER - 50 ML IVPB SCH ×2 (01:48→09:35)
[2018-04-08] MEDS: HEPARIN NA (PORCINE) 5,000 UNITS/ML 1ML VIAL SQ SCH ×2 (06:37→15:10)
[2018-04-08 07:14] LABS: BASO % 0.9 % (0-2.0); EOS % 1.8 % (0-4.5); HEMATOCRIT 33.2 % (32.4-45.2); HEMOGLOBIN 11.2 GM/dL (10.7-15.3); LYMPH % 33.4 % (8-40); MCH 29.7 pg (25.7-33.7); MCHC 33.8 g/dl (32.0-36.0); MEAN CELL VOLUME 87.8 fl (80-96); MEAN PLT VOLUME 8.1 fl (7.5-11.1); MONO % 5.9 % (3.8-10.2); PLATELET COUNT 302 K/MM3 (134-434); RBC 3.77 M/mm3 (3.60-5.2); RDW 13.6 % (11.6-15.6); WHITE BLOOD COUNT 7.1 K/mm3 (4.0-10.0)
[2018-04-08 07:45] LABS: ALBUMIN 3.1 g/dl (3.4-5.0); ANION GAP 6 (8-16); BILIRUBIN,TOTAL 0.2 mg/dL (0.2-1.0); BLOOD UREA NITROGEN 8 mg/dL (7-18); CALCIUM 8.3 mg/dL (8.5-10.1); CHLORIDE 113 mmol/L (98-107); CO2 27 mmol/L (21-32); CREATININE 1.1 mg/dL (0.55-1.02); GLUCOSE,RANDOM 107 mg/dL (74-106); MAGNESIUM 1.9 mg/dL (1.8-2.4); PHOSPHOROUS 3.2 mg/dL (2.5-4.9); SGOT/AST 16 U/L (15-37); SGPT/ALT 20 U/L (12-78); SODIUM 146 mmol/L (136-145); TOT PROT 6.2 g/dl (6.4-8.2)
[2018-04-08 07:48] LABS: ALK PHOS 65 U/L (45-117)
[2018-04-08] MEDS: PANTOPRAZOLE SODIUM 40 MG VIAL IVPUSH SCH (09:35)
[2018-04-08] MEDS ORDERED: ESCITALOPRAM OXALATE 10 MG TABLET (FP) PO SCH (10:00)
--- NOTE | 2018-04-08 13:30 | PN ---
Progress Note, Physician History of Present Illness: stable no pain tolerating diet repeat ct scan better - Current Medication List Current Medications: Active Medications Acetaminophen (Ofirmev Injection -) 1,000 mg IVPB Q6H PRN PRN Reason: PAIN LEVEL 6-10 Clonazepam (Klonopin -) 0.5 mg PO Q24H PRN PRN Reason: ANXIETY Escitalopram Oxalate (Lexapro -) 20 mg PO DAILY [facility] Last Admin: 04/08/18 09:27 Dose: Not Given Heparin Sodium (Porcine) (Heparin -) 5,000 unit SQ TID [facility] Last Admin: 04/08/18 06:37 Dose: 5,000 unit Piperacillin Sod/Tazobactam (Sod 3.375 gm/ Dextrose) 50 mls @ 100 mls/hr IVPB Q8H-IV [facility]; Protocol Last Admin: 04/08/18 09:35 Dose: 100 mls/hr Insulin Aspart (Novolog Vial Sliding Scale -) 1 vial SQ Q6HPO [facility]; Protocol Last Admin: 04/08/18 06:37 Dose: Not Given Insulin Detemir (Levemir Vial) 10 units SQ HS [facility] Last Admin: 04/07/18 22:07 Dose: 10 units Pantoprazole Sodium (Protonix Iv) 40 mg IVPUSH DAILY [facility] Last Admin: 04/08/18 09:35 Dose: 40 mg Trazodone HCl (Desyrel -) 100 mg PO HS [facility] Last Admin: 04/07/18 22:07 Dose: 100 mg - Objective Vital Signs: Vital Signs Temperature 97.8 F 04/08/18 05:56 Pulse Rate 84 04/08/18 05:56 Respiratory Rate 18 04/08/18 05:56 Blood Pressure 123/68 04/08/18 05:56 O2 Sat by Pulse Oximetry (%) 98 04/06/18 21:00 Constitutional: Yes: No Distress, Calm Cardiovascular: Yes: Regular Rate and Rhythm Respiratory: Yes: Regular, CTA Bilaterally Gastrointestinal: Yes: Normal Bowel Sounds, Soft Musculoskeletal: Yes: WNL Extremities: Yes: WNL Neurological: Yes: Alert, Oriented Psychiatric: Yes: Alert, Oriented Labs: CBC, BMP 04/08/18 06:30 04/08/18 06:30 INR, PTT INR 1.01 (0.82-1.09) 04/07/18 06:06 Assessment/Plan - -DAMIEN, l -Lactic acidosis, -HTN -HLD -IDDM -Depression/anxiety plan we can change her to oral abx d/w the team patient might need a repeat ct after 6-8 weeks rest continue as per the team
[2018-04-08 13:45] VITALS: BP 137/64; PULSE 68; TEMP 98.2
--- NOTE | 2018-04-08 14:24 | EKG ---
Test Reason : Blood Pressure : / mmHG Vent. Rate : 060 BPM Atrial Rate : 060 BPM P-R Int : 148 ms QRS Dur : 078 ms QT Int : 478 ms P-R-T Axes : 061 045 147 degrees QTc Int : 478 ms NORMAL SINUS RHYTHM T WAVE ABNORMALITY, CONSIDER ANTEROLATERAL ISCHEMIA PROLONGED QT ABNORMAL ECG WHEN COMPARED WITH ECG OF 06-APR-2018 09:52, NO SIGNIFICANT CHANGE WAS FOUND Confirmed by CATHY HUERTA, VICENTE ([id number]) on 04/08/2018 2:24:03 PM Referred By: Confirmed By:VICENTE MORGAN MD
--- NOTE | 2018-04-08 15:26 | PN ---
Teaching Attending Note Name of Resident: Ema Olson ATTENDING PHYSICIAN STATEMENT I saw and evaluated the patient. I reviewed the resident's note and discussed the case with the resident. I agree with the resident's findings and plan as documented with exceptions below. SUBJECTIVE: Patient seen and examined. no fevers, chills, nausea, vomiting or abdominal pain. Tolerating PO well. OBJECTIVE: Vital Signs Period Temp Pulse Resp BP Sys/Mendoza Pulse Ox Last 24 Hr 97.8 F-98.6 F 64-84 18-20 120-141/64-77 98 Intake & Output 04/05/18 04/06/18 04/07/18 04/08/18 23:59 23:59 23:59 23:59 Intake Total 2049 3825 1325 Balance 2049 3824 1325 Weight 176 lb 9.6 oz General: lying in bed in no acute distress Abdomen:Soft, obese, Non tender throughout, no RLQ tenderness, no voluntary or involuntary guarding or rigidity, positive bowel sounds Chest: CTAB, no rales or wheezing Home Medications Medication Instructions Recorded Lisinopril [Prinivil -] 30 mg PO DAILY 07/04/14 Escitalopram Oxalate [Lexapro -] 20 mg PO DAILY #30 tablet 07/05/14 Insulin (Levemir) [Levemir Vial] 20 unit SQ HS 04/06/18 Insulin Lispro [Humalog] 10 unit SQ BID 04/06/18 Canagliflozin [Invokana] 100 mg PO DAILY 04/07/18 Ergocalciferol (Vitamin D2) 50,000 mg PO WEEKLY 04/07/18 [Vitamin D2] Pravastatin Sodium 20 mg PO DAILY 04/07/18 Repaglinide 2 mg PO TID 04/07/18 Trazodone HCl 100 mg PO DAILY 04/07/18 Amoxicillin/Potassium Clav 1 each PO BID #26 tablet 04/08/18 [Augmentin 875-125 Tablet] Active Medications Acetaminophen (Ofirmev Injection -) 1,000 mg IVPB Q6H PRN PRN Reason: PAIN LEVEL 6-10 Clonazepam (Klonopin -) 0.5 mg PO Q24H PRN PRN Reason: ANXIETY Escitalopram Oxalate (Lexapro -) 20 mg PO DAILY [facility] Last Admin: 04/08/18 09:27 Dose: Not Given Heparin Sodium (Porcine) (Heparin -) 5,000 unit SQ TID [facility] Last Admin: 04/08/18 15:10 Dose: 5,000 unit Piperacillin Sod/Tazobactam (Sod 3.375 gm/ Dextrose) 50 mls @ 100 mls/hr IVPB Q8H-IV [facility]; Protocol Last Admin: 04/08/18 09:35 Dose: 100 mls/hr Insulin Aspart (Novolog Vial Sliding Scale -) 1 vial SQ Q6HPO [facility]; Protocol Last Admin: 04/08/18 13:39 Dose: Not Given Insulin Detemir (Levemir Vial) 10 units SQ HS [facility] Last Admin: 04/07/18 22:07 Dose: 10 units Pantoprazole Sodium (Protonix Iv) 40 mg IVPUSH DAILY [facility] Last Admin: 04/08/18 09:35 Dose: 40 mg Trazodone HCl (Desyrel -) 100 mg PO HS [facility] Last Admin: 04/07/18 22:07 Dose: 100 mg Laboratory Results - last 24 hr 04/07/18 04/07/18 04/08/18 17:23 22:01 06:30 WBC RBC Hgb Hct MCV MCH MCHC RDW Plt Count MPV Absolute Neuts (auto) Neutrophils % Lymphocytes % Monocytes % Eosinophils % Basophils % Nucleated RBC % Sodium 146 H Potassium 4.0 Chloride 113 H Carbon Dioxide 27 Anion Gap 6 L BUN 8 Creatinine 1.1 H Creat Clearance w eGFR 50.50 POC Glucometer 111 135 Random Glucose 107 H Calcium 8.3 L Phosphorus 3.2 Magnesium 1.9 Ferritin 58.7 Total Bilirubin 0.2 AST 16 ALT 20 Alkaline Phosphatase 65 D Total Protein 6.2 L Albumin 3.1 L 04/08/18 04/08/18 04/08/18 06:30 06:37 12:25 WBC 7.1 RBC 3.77 Hgb 11.2 Hct 33.2 MCV 87.8 MCH 29.7 MCHC 33.8 RDW 13.6 Plt Count 302 MPV 8.1 Absolute Neuts (auto) 4.1 Neutrophils % 58.0 Lymphocytes % 33.4 Monocytes % 5.9 Eosinophils % 1.8 Basophils % 0.9 Nucleated RBC % 0 Sodium Potassium Chloride Carbon Dioxide Anion Gap BUN Creatinine Creat Clearance w eGFR POC Glucometer 115 109 Random Glucose Calcium Phosphorus Magnesium Ferritin Total Bilirubin AST ALT Alkaline Phosphatase Total Protein Albumin CT A/P results reviewed ASSESSMENT AND PLAN: 62 yof with PMhx of HTN, IDDM, HLD, admitted with abdominal pain, nausea, vomiting, found with SIRS, Possible appendicitis vs cecal lesion. -SIRS, ?Appendicitis vs cecal lesion vs Gastroenteritis -DAMIEN, likely from vomiting, dehydration, r/o sepsis -Lactic acidosis, from above +/- metformin, seems more from hypovolumia than sepsis -HTN -HLD -IDDM -Depression/anxiety Plan: Improved, repeat CT A/P with no concerns. Discussed with Dr. Alonso, augmentin for 13 days. Tolerating diet well. Abdominal exam benign with no tenderness. d/c home today. Plan and d/c instructions discussed with patient in detail, all questions answered.
--- NOTE | 2018-04-08 20:00 | DS ---
Physical Exam: SUBJECTIVE: Patient seen and examined at bedside this morning. She has not had any pain since the initial episode. OBJECTIVE: Vital Signs Period Temp Pulse Resp BP Sys/Mendoza Pulse Ox Last 24 Hr 97.8 F-98.6 F 64-84 18-20 120-141/64-77 98 PHYSICAL EXAM GENERAL: The patient is awake, alert, and fully oriented, in no acute distress, eating her breakfast. LUNGS: Breath sounds equal, clear to auscultation bilaterally, no wheezes, no crackles HEART: Regular rate and rhythm, S1, S2 without murmur, rub or gallop. ABDOMEN: Soft, nontender, nondistended, normoactive bowel sounds LABS Laboratory Results - last 24 hr 04/07/18 04/08/18 04/08/18 22:01 06:30 06:30 WBC 7.1 RBC 3.77 Hgb 11.2 Hct 33.2 MCV 87.8 MCH 29.7 MCHC 33.8 RDW 13.6 Plt Count 302 MPV 8.1 Absolute Neuts (auto) 4.1 Neutrophils % 58.0 Lymphocytes % 33.4 Monocytes % 5.9 Eosinophils % 1.8 Basophils % 0.9 Nucleated RBC % 0 Sodium 146 H Potassium 4.0 Chloride 113 H Carbon Dioxide 27 Anion Gap 6 L BUN 8 Creatinine 1.1 H Creat Clearance w eGFR 50.50 POC Glucometer 135 Random Glucose 107 H Calcium 8.3 L Phosphorus 3.2 Magnesium 1.9 Ferritin 58.7 Total Bilirubin 0.2 AST 16 ALT 20 Alkaline Phosphatase 65 D Total Protein 6.2 L Albumin 3.1 L 04/08/18 04/08/18 06:37 12:25 WBC RBC Hgb Hct MCV MCH MCHC RDW Plt Count MPV Absolute Neuts (auto) Neutrophils % Lymphocytes % Monocytes % Eosinophils % Basophils % Nucleated RBC % Sodium Potassium Chloride Carbon Dioxide Anion Gap BUN Creatinine Creat Clearance w eGFR POC Glucometer 115 109 Random Glucose Calcium Phosphorus Magnesium Ferritin Total Bilirubin AST ALT Alkaline Phosphatase Total Protein Albumin IMAGING - Abdominal XRay: Nonspecific, nonobstructive gas pattern - CT Abdomen Pelvis (04/06): Findings at the origin of the appendix suggest appendicitis, unusual for the appendix to fill retrograde with oral contrast. A cecal lesion could give a similar picture. No surrounding adenopathy is seen. - CT Abdomen Pelvis (04/08): Area of mural thickening at the junction of the appendix and the cecum SHOWS NO THICKENING on the present study. The appendix fills with oral contrast. The amount of fluid within the cul-de-sac is less. There is no obstructive changes. No diverticulitis or colitis identified. Hepatic steatosis. Stable renal cysts. HOSPITAL COURSE: Date of Admission:04/06/18 Date of Discharge: 04/08/18 Prehospital course as per Dr. Karel Lackey 62 yo F h/o HLD, IDDM, HTN presented to the ED with abd pain since this morning. Last night she ate some cornbread then went to sleep, pain woke her up around 5am, located in the center of [facility], 8/10, constant, throbbing like, a/w nbnb vomiting, no alleviating or aggravating factors. She had not eaten any food since. Had a solid bowel movement this morning. Denies fever, chill, chest pain, shortness of breath, sick contact, urinary sx. Hospital course Patient was admitted for severe sepsis and an initial CT Abdomen and pelvis did not rule out appendicitis. Patient was kept NPO and started on Zosyn. Surgery and Infectious disease were consulted. Patients pain continued to improve on serial abdominal exams. Patients diet was advanced and a follow up CT Abdomen and pelvis was done. Patient was transitioned to PO Augmentin and was discharged on a 13 day course. Her Lactic acidosis and DAMIEN Resolved. Patient was told to monitor her blood sugars and avoid Metformin until she could follow up with her primary. Minutes to complete discharge: 38 Discharge Summary Reason For Visit: SEPSIS,ABD PAIN Condition: Stable - Instructions Diet, Activity, Other Instructions: You are being discharged on a new antibiotic (Augmentin) for 13 days. First dose today evening. Follow up with your primary doctor in 1 week. Follow up with surgeon outpatient in 2-3 weeks and discuss if you need a follow up CT scan of your belly. Information has been provided. Your medication metformin has been discontinued for now. Do not take till further instructed by your doctor. Please resume all your other home medications as before. Strongly advise to check blood sugars before all meals and at bedtime and notify < 75 or persitently > 200 or any reading > 350 noted. Please note that you will need to closely monitor your blood sugar readings over the next few days. If you notice you are eating less or blood sugars are persistently < 80, call your doctor or come to ED. If you feel any worrisome symptoms including dizziness, blurry vision, fast heart rate, chest pain, shortness of breath or fevers, belly pain, bloody diarrhea, nausea, vomiting or new concerns. please return to the emergency room. Referrals: Satnam Red MD [Staff Physician] - 3 Weeks Didi Anderson MD [Primary Care Provider] - Disposition: HOME - Home Medications Comprehensive Discharge Medication List: Ambulatory Orders Lisinopril [Prinivil -] 30 mg PO DAILY 07/04/14 Escitalopram Oxalate [Lexapro -] 20 mg PO DAILY #30 tablet 07/05/14 Insulin (Levemir) [Levemir Vial] 20 unit SQ HS 04/06/18 Insulin Lispro [Humalog] 10 unit SQ BID 04/06/18 Canagliflozin [Invokana] 100 mg PO DAILY 04/07/18 Ergocalciferol (Vitamin D2) [Vitamin D2] 50,000 mg PO WEEKLY 04/07/18 Pravastatin Sodium 20 mg PO DAILY 04/07/18 Repaglinide 2 mg PO TID 04/07/18 Trazodone HCl 100 mg PO DAILY 04/07/18 Amoxicillin/Potassium Clav [Augmentin 875-125 Tablet] 1 each PO BID #26 tablet 04/08/18 This patient is new to me today: No Emergency Visit: Yes ED Registration Date: 04/06/18 Care time: The patient presented to the Emergency Department on the above date and was hospitalized for further evaluation of their emergent condition. Critical Care patient: No - Discharge Referral Referred to [facility] No
[2018-04-09 06:25] LABS: SERUM IRON SATURATION 20 % (15-55); TOTAL IRON BINDING CAPACITY 247 ug/dL (250-450); UIBC 198 ug/dL (118-369)
== END 2018-04-08 16:17 | disposition home or self-care (01) | DRG 394 ==
LOC: JER 08:46 → JERBED 14:30 → J6S 17:30
PROVIDERS: ADMIT Hospitalist; ATTEND Hospitalist
DX: K36 Other appendicitis (principal); N17.9 Acute kidney failure, unspecified; E87.2 Acidosis; F41.8 Other specified anxiety disorders; E78.5 Hyperlipidemia, unspecified; E86.0 Dehydration; E11.9 Type 2 diabetes mellitus without complications; I73.9 Peripheral vascular disease, unspecified; K63.9 Disease of intestine, unspecified; D64.9 Anemia, unspecified; R10.33 Periumbilical pain; F17.210 Nicotine dependence, cigarettes, uncomplicated; N28.1 Cyst of kidney, acquired; Z79.4 Long term (current) use of insulin
CPT/HCPCS: 36415; 74018-TC-FY; 74177-TC; 80048; 80053; 81003; 82550; 82728; 82962; 83540; 83550; 83605; 83690; 83735; 84100; 84484; 85025; 85610; 85730; 86850; 86900; 86901; 87040; 87086; 90670; 93005; 93010; 99284-25; J1644; J7030

== ENCOUNTER 2019-03-10 17:35 | Emergency (ER) | payer OTHER ==
[2019-03-10 18:28] VITALS: BP 158/81; PULSE 89; TEMP 98.4; BMI 25.0
--- NOTE | 2019-03-10 18:29 | PDOC ---
Rapid Medical Evaluation Chief Complaint: Pain Time Seen by Provider: 03/10/19 18:26 Medical Evaluation: Allergies Allergy/AdvReac Type Severity Reaction Status Date / Time No Known Allergies Allergy Verified 04/06/18 08:51 03/10/19 18:27 I have performed a brief in-person evaluation of this patient. The patient presents with a chief complaint of:left foot pain- has new diabetic shoes/ with arch and has pain on bottom of foot. - worse when standing in am Pertinent physical exam findings: plantar pain I have ordered the following: nothing The patient will proceed to the ED for further evaluation. 03/10/19 18:28 Discharge Disposition - Diagnosis Left foot pain - Referrals - Patient Instructions - Post Discharge Activity
[2019-03-10] MEDS ORDERED: KETOROLAC TROMETHAMINE 30 MG/1 ML VIAL IM ONE (18:55)
--- NOTE | 2019-03-10 19:05 | PDOC ---
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 patient has a past medical history diabetes, htn. no open area, erythema noted. Past History - Past Medical History Allergies/Adverse Reactions: Allergies Allergy/AdvReac Type Severity Reaction Status Date / Time No Known Allergies Allergy Verified 03/10/19 18:27 Home Medications: Ambulatory Orders Lisinopril [Prinivil -] 30 mg PO DAILY 07/04/14 Escitalopram Oxalate [Lexapro -] 20 mg PO DAILY #30 tablet 07/05/14 Insulin (Levemir) [Levemir Vial] 20 unit SQ HS 04/06/18 Insulin Lispro [Humalog] 10 unit SQ BID 04/06/18 Canagliflozin [Invokana] 100 mg PO DAILY 04/07/18 Ergocalciferol (Vitamin D2) [Vitamin D2] 50,000 mg PO WEEKLY 04/07/18 Pravastatin Sodium 20 mg PO DAILY 04/07/18 Repaglinide 2 mg PO TID 04/07/18 traZODone HCL [Trazodone HCl] 100 mg PO DAILY 04/07/18 Amoxicillin/Potassium Clav [Augmentin 875-125 Tablet] 1 each PO BID #26 tablet 04/08/18 COPD: No Diabetes: Yes (niddm) HTN: Yes Psychiatric Problems: Yes (depression, anxiety) - Suicide/Smoking/Psychosocial Hx Smoking History: Never smoked Have you smoked in the past 12 months: No Number of Cigarettes Smoked Daily: 2 Information on smoking cessation initiated: No 'Breaking Loose' booklet given: 04/06/18 Hx Alcohol Use: No Drug/Substance Use Hx: No Substance Use Type: None Hx Substance Use Treatment: No Review of Systems - Review of Systems Able to Perform ROS?: Yes Is the patient limited Irish proficient: No Constitutional: No: Symptoms Reported, See HPI, Chills, Diaphoresis, Fever, Loss of Appetite, Malaise, Night Sweats, Weakness, Weight Stable, Unintentional Wgt. Loss, Unexplained wgt Loss, Other Musculoskeletal: Yes: Other (foot pain) *Physical Exam - Vital Signs Last Vital Signs Temp Pulse Resp BP Pulse Ox 98.4 F 89 18 158/81 98 03/10/19 18:25 03/10/19 18:25 03/10/19 18:25 03/10/19 18:25 03/10/19 18:25 - Physical Exam General Appearance: Yes: Appropriately Dressed Musculoskeletal: positive: Normal Inspection Extremity: positive: Normal Capillary Refill, Other (pain on palpation to left plantar foot). 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 follow up with your production truck driver as soon as possible. - Post Discharge Activity Forms/Work/School Notes: Back to Work
[2019-03-10] MEDS ORDERED: KETOROLAC TROMETHAMINE 30 MG/1 ML VIAL ONE (19:12)
== END 2019-03-10 20:08 | disposition home or self-care (01) ==
LOC: JERFT 17:35
PROC: 3E0233Z Introduction of Anti-inflammatory into Muscle, Percutaneous Approach (ICD-10-PCS; principal; 2019-03-10)
DX: M72.2 Plantar fascial fibromatosis (principal); I10 Essential (primary) hypertension; E11.9 Type 2 diabetes mellitus without complications; Z79.84 Long term (current) use of oral hypoglycemic drugs; F41.9 Anxiety disorder, unspecified; F32.9 Major depressive disorder, single episode, unspecified
CPT/HCPCS: 73630-TC-LT; 99281-25

== ENCOUNTER 2019-03-29 09:12 | Emergency (ER) | payer OTHER ==
[2019-03-29 09:26] VITALS: BP 154/75; PULSE 87; TEMP 98.5; BMI 29.6
[2019-03-29] MEDS ORDERED: KETOROLAC TROMETHAMINE 60 MG/2 ML VIAL ONE (09:45)
[2019-03-29] MEDS ORDERED: KETOROLAC TROMETHAMINE 60 MG/2 ML VIAL IM ONE (09:50)
--- NOTE | 2019-03-29 09:57 | PDOC ---
History of Present Illness - General Chief Complaint: Pain, Acute Stated Complaint: RT LEG NUMBNESS Time Seen by Provider: 03/29/19 09:36 History Source: Patient Exam Limitations: No Limitations - History of Present Illness Initial Comments: 03/29/19 09:51 Patient suffers from peripheral neuropathy and diabetic neuropathy, and states his had worsening of symptoms in the past few weeks. Denies any changes in exercise or activity, denies any fevers or insulin/sugar requirements and uses ibuprofen but states has progressively worsened. States has appointment with PMD tomorrow Occurred: reports: last week Severity: reports: moderate Pain Location: reports: lower extremity (right foot ) Past History - Past Medical History Allergies/Adverse Reactions: Allergies Allergy/AdvReac Type Severity Reaction Status Date / Time No Known Allergies Allergy Verified 03/10/19 18:27 Home Medications: Ambulatory Orders Lisinopril [Prinivil -] 30 mg PO DAILY 07/04/14 Repaglinide 2 mg PO TID 04/07/18 Ibuprofen 600 mg PO Q6H PRN #30 tablet 03/29/19 Linaclotide [Linzess] 145 mcg PO DAILY 03/29/19 Metformin HCl [Glucophage] 1,000 mg PO BID 03/29/19 COPD: No Diabetes: Yes (niddm) HTN: Yes Psychiatric Problems: Yes (depression, anxiety) - Suicide/Smoking/Psychosocial Hx Smoking History: Former smoker Have you smoked in the past 12 months: No Number of Cigarettes Smoked Daily: 2 Information on smoking cessation initiated: No 'Breaking Loose' booklet given: 04/06/18 Hx Alcohol Use: No Drug/Substance Use Hx: No Substance Use Type: None Hx Substance Use Treatment: No Review of Systems - Review of Systems Able to Perform ROS?: Yes Is the patient limited Syrian proficient: Yes Constitutional: Yes: Symptoms Reported, See HPI, Malaise. No: Chills, Fever HEENTM: No: Symptoms Reported Respiratory: No: Symptoms reported Musculoskeletal: Yes: Symptoms Reported, See HPI, Joint Pain, Muscle Pain Integumentary: Yes: See HPI. No: Symptoms Reported, Bruising, Erythema All Other Systems: Reviewed and Negative *Physical Exam - Vital Signs Last Vital Signs Temp Pulse Resp BP Pulse Ox 98.5 F 87 16 154/75 100 03/29/19 09:22 03/29/19 09:22 03/29/19 09:22 03/29/19 09:22 03/29/19 09:22 - Physical Exam General Appearance: Yes: Nourished, Appropriately Dressed, Mild Distress, Moderate Distress HEENT: positive: FRANKIE, Normal ENT Inspection, TMs Normal, Pharynx Normal Neck: positive: Supple Extremity: positive: Normal Capillary Refill, Normal Inspection, Tender, Delayed Capillary Refill (but less than two-minute). negative: Normal Range of Motion (limited range of motion secondary to exquisite tenderness to very light touch. Has full range of motion to toes, and pulses are intact however peripheral neuropathy severe. Has no lesions, excoriation or ulcerations noted between toes on plantar aspect or dorsal aspect of foot.), Swelling Integumentary: positive: Pale. negative: Swelling, Bruising Neurologic: positive: general contractor II-XII NML intact, Fully Oriented, Alert, Normal Mood/ Affect, Normal Response, Motor Strength 5/5 Progress Note - Progress Note Progress Note: Worsening diabetic/peripheral neuropathy. We'll treat with NSAIDs and given 2 tablets of Percocet. Has appointment with PMD tomorrow and encouraged to follow- up for pain management and further testing. *DC/Admit/Observation/Transfer Diagnosis at time of Disposition: Peripheral neuralgia - Discharge Dispostion Disposition: HOME Condition at time of disposition: Stable Decision to Admit order: No - Prescriptions Prescriptions: Ibuprofen 600 mg PO Q6H PRN #30 tablet PRN Reason: Pain - Referrals Referrals: Teddy Moses MD [Staff Physician] - - Patient Instructions Printed Discharge Instructions: DI for Peripheral Neuropathy Additional Instructions: Rest, ice to area on and off for 15 minutes 4-6 times a day Avoid heavy lifting or exercise until pain and swelling is resolved or until further directed Keep area highly elevated to reduce swelling Followup with orthopedist in one to 2 days if not improving, if significantly improved may wait one week for followup with orthopedist May use ibuprofen every 6 hours as needed for pain - Post Discharge Activity Forms/Work/School Notes: Back to Work
== END 2019-03-29 09:56 | disposition home or self-care (01) ==
LOC: JERFT 09:12
PROC: 3E0233Z Introduction of Anti-inflammatory into Muscle, Percutaneous Approach (ICD-10-PCS; principal; 2019-03-29)
DX: E11.42 Type 2 diabetes mellitus with diabetic polyneuropathy (principal); Z79.84 Long term (current) use of oral hypoglycemic drugs; I10 Essential (primary) hypertension; G62.89 Other specified polyneuropathies; F32.9 Major depressive disorder, single episode, unspecified; F41.8 Other specified anxiety disorders
CPT/HCPCS: 96372; 99281-25

== ENCOUNTER 2019-03-30 12:25 | Inpatient (IN) | payer OTHER ==
--- NOTE | 2019-03-30 14:13 | PDOC ---
History of Present Illness - General Chief Complaint: Pain, Acute Stated Complaint: SENT BY PCP // LT LEG PAIN Time Seen by Provider: 03/30/19 14:12 - History of Present Illness Initial Comments: 63yo F with PMH of HTN, HLD, DM, PAD s/p Left femoral endarterectomy sent by her vascular specialist for evaluation of a cold left foot. Patient first noticed left foot pain three weeks ago. The pain is rated 10/10 and described as "burning and pins and needles" most focal to the arch of her foot. The pain is worsened by movement or being touched. She presented yesterday to the ED and was given NSAIDS/percocet but this has not improved her pain. Patient reports that she quit smoking six weeks ago but was a 2ppd smoker since age 18. No fevers, chills, chest pain or shortness of breath. PCP: Dr. Didi Anderson Vascular: Dr. Mena Past History - Past Medical History Allergies/Adverse Reactions: Allergies Allergy/AdvReac Type Severity Reaction Status Date / Time No Known Allergies Allergy Verified 03/30/19 12:34 Home Medications: Ambulatory Orders Lisinopril [Prinivil -] 30 mg PO DAILY 07/04/14 Insulin Lispro [Humalog] 1 pump SQ PRN PRN 03/30/19 Budesonide/Formeterol Fumarate [SYMBICORT 160/4.5mcg -] 2 puff PO BID 03/31/19 Escitalopram Oxalate [Lexapro -] 20 mg PO DAILY 03/31/19 Ibuprofen [Motrin -] 600 mg PO Q6H 03/31/19 Pravastatin Sodium 20 mg PO DAILY 03/31/19 traZODone HCL [Trazodone HCl] 100 mg PO DAILY 03/31/19 COPD: No Diabetes: Yes (niddm) HTN: Yes Psychiatric Problems: Yes (depression, anxiety) - Suicide/Smoking/Psychosocial Hx Smoking History: Unknown if ever smoked Have you smoked in the past 12 months: No Number of Cigarettes Smoked Daily: 2 'Breaking Loose' booklet given: 04/06/18 Hx Alcohol Use: No Drug/Substance Use Hx: No Substance Use Type: None Hx Substance Use Treatment: No Review of Systems - Review of Systems Comments:: Constitutional: no fever, no chills HEENT: no throat pain, no dysphagia Cardiovascular: no chest pain, no palpitations Respiratory: no cough, no shortness of breath Gastrointestinal: no abdominal pain, no nausea Genitourinary: no dysuria, no frequency Musculoskeletal: +L. foot pain, no back pain Skin: no rash, no itching Neurologic: no headache, no weakness *Physical Exam - Vital Signs Last Vital Signs Temp Pulse Resp BP Pulse Ox 98.5 F 80 18 138/72 98 03/30/19 12:34 03/30/19 12:34 03/30/19 12:34 03/30/19 12:34 03/30/19 12:34 - Physical Exam Comments: General: Awake, alert, and fully oriented, in no acute distress Head: No signs of trauma Eyes: EOMI, sclera anicteric ENT: Moist mucus membranes Neck: Normal ROM, supple Lungs: Lungs clear, Normal breath sounds Cardio: Regular rhythm, S1 and S2 present Abdomen: Soft, nontender Extremities: Normal range of motion L. foot colder than R. foot; unable to palpate pulses; pain upon light touch of all areas of foot especially arch, no overlying rash or lesion SKIN: Warm, Dry, normal turgor Neurologic: Cranial nerves II through XII grossly intact. Normal speech ED Treatment Course - LABORATORY CBC & Chemistry Diagram: 04/01/19 06:45 04/01/19 06:45 Medical Decision Making - Medical Decision Making 63yo F with PMH of HTN, HLD, DM, PAD s/p Left femoral endarterectomy sent by her vascular specialist for evaluation of a cold left foot. DDX including but not limited to vascular occlusion, claudication, vascular insufficiency, diabetic nephropathy, gout Labs, CTA Morphine for pain Plan to admit to Dr. Mena's service 03/30/19 15:47 CBC WBC 9.0 K/mm3 (4.0-10.0) 03/30/19 14:32 RBC 4.43 M/mm3 (3.60-5.2) 03/30/19 14:32 Hgb 12.9 GM/dL (10.7-15.3) 03/30/19 14:32 Hct 39.1 % (32.4-45.2) D 03/30/19 14:32 MCV 88.2 fl (80-96) 03/30/19 14:32 MCH 29.1 pg (25.7-33.7) 03/30/19 14:32 MCHC 33.0 g/dl (32.0-36.0) 03/30/19 14:32 RDW 14.2 % (11.6-15.6) 03/30/19 14:32 Plt Count 346 K/MM3 (134-434) 03/30/19 14:32 MPV 8.5 fl (7.5-11.1) 03/30/19 14:32 Absolute Neuts (auto) 5.7 K/mm3 (1.5-8.0) 03/30/19 14:32 Neutrophils % 63.3 % (42.8-82.8) 03/30/19 14:32 Lymphocytes % 26.8 % (8-40) 03/30/19 14:32 Monocytes % 6.6 % (3.8-10.2) 03/30/19 14:32 Eosinophils % 1.8 % (0-4.5) 03/30/19 14:32 Basophils % 1.5 % (0-2.0) 03/30/19 14:32 Nucleated RBC % 0 % (0-0) 03/30/19 14:32 No anemia or leukocytosis CMP Sodium 139 mmol/L (136-145) 03/30/19 14:32 Potassium 4.3 mmol/L (3.5-5.1) 03/30/19 14:32 Chloride 106 mmol/L (98-107) 03/30/19 14:32 Carbon Dioxide 28 mmol/L (21-32) 03/30/19 14:32 Anion Gap 5 MMOL/L (8-16) L 03/30/19 14:32 BUN 20.8 mg/dL (7-18) H 03/30/19 14:32 Creatinine 1.2 mg/dL (0.55-1.3) 03/30/19 14:32 Est GFR (CKD-EPI)AfAm 56.09 03/30/19 14:32 Est GFR (CKD-EPI)NonAf 48.40 03/30/19 14:32 POC Glucometer 129 UNITS (80-120) 03/30/19 18:06 Random Glucose 223 mg/dL (74-106) H 03/30/19 14:32 Calcium 9.2 mg/dL (8.5-10.1) 03/30/19 14:32 Total Bilirubin 0.2 mg/dL (0.2-1) 03/30/19 14:32 AST 9 U/L (15-37) L 03/30/19 14:32 ALT 21 U/L (13-61) 03/30/19 14:32 Alkaline Phosphatase 83 U/L (45-117) 03/30/19 14:32 Total Protein 7.4 g/dl (6.4-8.2) 03/30/19 14:32 Albumin 3.8 g/dl (3.4-5.0) 03/30/19 14:32 Electrolytes unremarkable Glucose elevated EKG: rate 70, QTc 449, NSR CXR: No evidence of active pulmonary disease Pending CTA report Dr. Mena's accepted patient for admission under Dr. Mena They do not want heparin at this time. CTA: "HISTORY: 63-year-old female status post femoral endarterectomy now presenting with cold pulseless leg TECHNIQUE: Multiaxial CT angiogram of the abdomen and pelvis with bilateral lower extremity runoffs after the intravenous administration of contrast, in the arterial phase, was performed from the distal thoracic aorta through the common femoral arteries into the distal feet. Sagittal and coronal reformats were performed. Axial, sagittal and coronal maximum intensity projection reformats in addition to 3D MIP and 3D volume rendered reformats were performed on a separate dedicated station. Total of 120 cc of Omnipaque 350 was administered intravenously. No comparison CT angiogram is available. Correlation is made with CT of the abdomen and pelvis dated April 08, 2018. FINDINGS: VASCULAR: The distal thoracic and suprarenal abdominal aorta is normal in caliber demonstrating mild circumferential mural atherosclerotic disease with no appreciable luminal stenosis. There is extensive circumferential mural an eccentric noncalcified atheroma within the infrarenal abdominal aorta resulting in stenosis in the range of 70-90% with a focal dissection. RIGHT: Multifocal atherosclerotic disease resulting in less than 50% stenosis seen in the right common iliac artery. Mural atherosclerotic disease resulting in near 50% stenosis seen in the right external iliac artery. Atherosclerotic disease seen in the right common femoral artery with focal stenosis proximally in the range of 70-90%. The right deep femoral artery is patent. The right superficial femoral artery is occluded with reconstitution of flow in the right popliteal artery is via the deep femoral artery. The right popliteal artery demonstrate multifocal disease with predominantly less than near 50% stenosis. The right anterior tibial artery, tibioperoneal trunk, posterior tibial artery and peroneal arteries are patent. LEFT: Diffuse left common iliac artery atherosclerotic disease is seen resulting in less than 50% stenosis. Diffuse atherosclerotic disease seen in the left external iliac artery resulting in stenoses up to 50-70% followed by occlusion of the distal left external iliac artery and common femoral artery. There is reconstitution of flow in the left deep femoral and superficial femoral arteries. High-grade stenosis seen at the origin of the left superficial femoral artery which is patent. The left popliteal artery is widely patent. The left anterior tibial, tibioperoneal trunk, peroneal artery and serial tibial arteries are widely patent. The celiac trunk and SMA are widely patent. The right and left renal arteries are widely patent. Diminutive flow seen in the LUIS which has lots of atherosclerotic disease at its origin. ABDOMEN AND PELVIS: The visualized lung bases and inferior mediastinum are unremarkable. The liver, pancreas, gallbladder and biliary tree are unremarkable. Evaluation of the spleen is limited due to heterogeneous phase of enhancement. There is massive thickening of the right and left adrenal glands. There is symmetric enhancement of both kidneys. The kidneys are imaged in the cortical phase limiting the evaluation for medullary lesions. There is a 1.5 cm left upper renal pole cyst. There is no hydronephrosis. The urinary bladder is unremarkable. The uterus is unremarkable. There is a tubular fluid structure in the right adnexa (axial image 117 ). Evaluation of the bowel loops is limited due to lack of oral contrast however there is no evidence of abnormal bowel dilatation to suggest bowel obstruction. The appendix is normal. There is no evidence of pneumoperitoneum, abdominal ascites or enlarged lymph nodes. There is no destructive bony lesion. IMPRESSION: Extensive infrarenal aortic atherosclerotic disease resulting in stenosis up to 70-90% with a focal /short segment dissection versus ulcerated plaque. Extensive bilateral iliofemoral atherosclerotic disease with: - 70-90% stenosis in the distal right EIA/ proximal FACSIMILE OPERATOR, occlusion of the right SFA with reconstitution of flow in the right popliteal artery which demonstrates less than 50% stenosis and patent three-vessel infrapopliteal runoff. - 50-70% stenosis in the left EIA followed by occlusion of the left FACSIMILE OPERATOR and reconstitution of flow in the left DFA and SFA which demonstrates high-grade stenosis at the origin. Widely patent left popliteal and infrapopliteal arteries with three-vessel runoff noted. Marked thickening of the adrenal glands likely due to hyperplasia. Further characterization with MRI may be obtained as clinically warranted. 1.5 cm left upper renal pole cyst. Likely right adnexal hydrosalpinx. Correlate with ultrasound and/or MRI on a nonemergent basis. " *DC/Admit/Observation/Transfer Diagnosis at time of Disposition: Leg pain, left - Discharge Dispostion Condition at time of disposition: Guarded Decision to Admit order: Yes - Referrals - Patient Instructions - Post Discharge Activity
--- NOTE | 2019-03-30 14:38 | HP ---
Addendum entered and electronically signed by Carmen Tavarez PA 03/30/19 18:09 : CTA reviewed by attending Dr Mena. Surgical planning ongoing, pt will require Cardiology evaluation. Consult placed for Dr Luo. Original Note: Admitting History and Physical - Primary Care Physician PCP: Didi Anderson - Admission Chief Complaint: severe left foot pain History of Present Illness: 63 y/o F w/ PMhx htn, hld, IDDM (has Insulin pump), PAD s/p L femoral endartectomy (Dr Mena, 2007), now presents to ED after being sent from Dr Mena's office for evaluation of cold leg. Pt reports she began having pain in her L foot approximately 3 weeks ago. Pt presented to the ER and was diagnosed with plantar fascitis, conservative management was recommended. Pt reports pain persisted, however she was able to ambulate with the use of a cane. Patient reports pain significantly worsened yesterday and she presented to the ED again at which time she was diagnosed with worsening diabetic/ peripheral neuropathy and given NSAIDs/Percocet. States she has had decreased ability to move her foot over the past few days as well as increased numbness. Denies cp/sob, n/v/d. Pt last ate full breakfast at 10am. At baseline pt has 1 block claudication, has not f/u with Dr eMna over the past few years. Denies h/o rest pain prior to this event. Was a former smoker, quit 6 months ago, prior to that she smoked 1 ppd since teens. Denies known CAD, however has not had an echo/cardiac workup. 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 No: AFIB, CAD, CHF, Deep Vein Thrombosis Endocrine: Yes: Diabetes Mellitus - Past Surgical History Additional Past Surgical History: L POPULATION HEALTH MANAGER endarterectomy 2007 - Smoking History Smoking history: Former smoker (quit 6 months ago) Have you smoked in the past 12 months: No Aproximately how many cigarettes per day: 2 - Alcohol/Substance Use Hx Alcohol Use: No - Social History ADL: Independent History of Recent Travel: No <DaysiCarmen - Last Filed: 03/30/19 15:05> Home Medications <Daysicarringtonraimundonataliya - Last Filed: 03/30/19 15:05> <Viral Mena - Last Filed: 03/30/19 22:50> - Allergies Allergies/Adverse Reactions: Allergies Allergy/AdvReac Type Severity Reaction Status Date / Time No Known Allergies Allergy Verified 03/30/19 12:34 - Home Medications Home Medications: Ambulatory Orders Lisinopril [Prinivil -] 30 mg PO DAILY 07/04/14 Linaclotide [Linzess] 145 mcg PO DAILY 03/29/19 Metformin HCl [Glucophage] 1,000 mg PO BID 03/29/19 Hydrochlorothiazide 25 mg PO DAILY 03/30/19 Insulin Lispro [Humalog] 1 unit SQ PRN PRN 03/30/19 Repaglinide 2 mg PO DAILY 03/30/19 Review of Systems - Review of Systems Constitutional: denies: No Symptoms, Chills, Diaphoresis, Fever, Lethargy, Loss of Appetite, Malaise, Night Sweats, Unintentional Wgt. Loss, Weakness, Other Cardiovascular: denies: Chest Pain Gastrointestinal: denies: Abdominal Pain <Martin Tavarezphyllis - Last Filed: 03/30/19 15:05> Physical Examination Vital Signs: Vital Signs Temperature 98.5 F 03/30/19 12:34 Pulse Rate 80 03/30/19 12:34 Respiratory Rate 18 03/30/19 12:34 Blood Pressure 138/72 03/30/19 12:34 O2 Sat by Pulse Oximetry (%) 98 03/30/19 12:34 Constitutional: Yes: Well Nourished, Anxious, Moderate Distress HENT: Yes: WNL Cardiovascular: Yes: Tachycardia, S1, S2. No: Murmur, Rub Respiratory: Yes: CTA Bilaterally. No: Accessory Muscle Use Gastrointestinal: Yes: Normal Bowel Sounds, Soft. No: Tenderness Extremities: Yes: Other (L foot cool to touch to ankle, severe pain in foot, extremely tender to touch. No mottling or gangrene noted. R foot warm, no ttp, no ulcers. L foot unable to dorsi/plantarflex, slightly able to wiggle great toe. Able to move foot laterally and medially. R foot motor/sensory intact.) Peripheral Pulses: Left Doralis Pedis: 0 (L dp/pt/pop not appreciated by doppler , femoral biphasic via doppler, unable to obtain r dp/pt (doppler nonfunctional) , palpable r femoral ) <Carmen Tavarez - Last Filed: 03/30/19 15:05> Vital Signs: Vital Signs Temperature 97.7 F 03/30/19 17:17 Pulse Rate 70 03/30/19 17:17 Respiratory Rate 18 03/30/19 17:17 Blood Pressure 177/88 H 03/30/19 17:17 O2 Sat by Pulse Oximetry (%) 98 03/30/19 17:17 Labs: CBC, BMP 03/30/19 14:32 03/30/19 14:32 <Viral Mena - Last Filed: 03/30/19 22:50> Imaging - Results Chest X-ray: Pending Cat Scan: Pending EKG: Pending <Carmen Tavarez - Last Filed: 03/30/19 15:05> Problem List - Problems (1) Arterial occlusion Code(s): I70.90 - UNSPECIFIED ATHEROSCLEROSIS <Carmen Tavarez - Last Filed: 03/30/19 15:05> Assessment/Plan 63 y/o F w/ PMHx IDDM (Insulin pump), htn, hld, PAD s/p endartectomy, now presents with acute on chronic arterial occlusion. L foot cool to touch with sensory/motor deficits progressing over the past few days. -Admit to Dr Dunlap's service -Stat CTA aorta w/ runoff -Stat labs (sent by PA-cbc/chem/coags/t&s) -EKG/CXR -Consult placed to pts pcp Dr Anderson -NPO, IVF -Will evaluate need for Heparin gtt after CTA -Plan pending CTA d/w attending Dr Mena <Carmen Tavarez - Last Filed: 03/30/19 15:05> History as documented. 3 weeks of left foot pain, numbness and difficulty walking. Exam notable for regular pulse with cool left foot and absent pulses. CTA shows narrowed, thrombus filled distal aorta. Occlusion of the left POPULATION HEALTH MANAGER at site of prior endarterectomy with patent SFA, DFA, popliteal and tibial arteries Right SFA occluded with reconstitution of popliteal artery. Findings suggest possible subacute left femoral embolism from the aorta. She will need open surgery for placement of an aortic covered stent to prevent further emboli and thrombectomy of the femoral artery. Cardiac clearance requested. <Viral Mena - Last Filed: 03/30/19 22:50>
[2019-03-30 14:48] LABS: BASO % 1.5 % (0-2.0); EOS % 1.8 % (0-4.5); HEMATOCRIT 39.1 % (32.4-45.2); HEMOGLOBIN 12.9 GM/dL (10.7-15.3); LYMPH % 26.8 % (8-40); MCH 29.1 pg (25.7-33.7); MEAN CELL VOLUME 88.2 fl (80-96); MEAN PLT VOLUME 8.5 fl (7.5-11.1); MONO % 6.6 % (3.8-10.2); NEUT % 63.3 % (42.8-82.8); RBC 4.43 M/mm3 (3.60-5.2); RDW 14.2 % (11.6-15.6)
[2019-03-30] MEDS ORDERED: morphine CARPU-JECT 4 MG/1 ML DISP.SYRIN IVPUSH ONE (14:48)
[2019-03-30] MEDS ORDERED: morphine SULFATE 4 MG/ML VIAL ONE (14:52)
[2019-03-30 15:04] LABS: INR 0.82 (0.83-1.09); PROTHROMBIN TIME (PATIENT) 9.6 SEC (9.7-13.0)
[2019-03-30 15:06] LABS: ACTIVATED PTT 29.3 SECONDS (25.2-36.5)
[2019-03-30 15:19] LABS: ALBUMIN 3.8 g/dl (3.4-5.0); BILIRUBIN,TOTAL 0.2 mg/dL (0.2-1); BLOOD UREA NITROGEN 20.8 mg/dL (7-18); CALCIUM 9.2 mg/dL (8.5-10.1); CREATININE 1.2 mg/dL (0.55-1.3); POTASSIUM 4.3 mmol/L (3.5-5.1); TOT PROT 7.4 g/dl (6.4-8.2)
[2019-03-30 15:25] LABS: PLATELET COUNT 346 K/MM3 (134-434)
[2019-03-30] MEDS ORDERED: SODIUM CHLORIDE 1,000 ML IV STA (16:15)
--- NOTE | 2019-03-30 16:50 | PDOC ---
Documentation entered by Samina Park SCRIBE, acting as scribe for Lydia Spain MD. Lydia Spain MD: This documentation has been prepared by the Vivian michelle Sammi, SCRIBE, under my direction and personally reviewed by me in its entirety. I confirm that the documentation accurately reflects all work, treatment, procedures, and medical decision making performed by me. Attending Attestation - Resident Resident Name: Misty Garrido - ED Attending Attestation I have performed the following: I have examined & evaluated the patient, The case was reviewed & discussed with the resident, I agree w/resident's findings & plan, Exceptions are as noted - HPI HPI: 03/30/19 13:37 The patient is a 63 year old female, with a significant PMH of HTN, HLD, DM, peripheral artery disease s/p left femoral endarterectomy [address] Mena, who was advised to come to the emergency department by Dr. Mena for admission for left foot pain and numbness. The patient states she has been experiencing a cold, pins and needles feeling to the arch of her left foot, 10/10 in severity. Denies pain above the ankle. Dr. Mena requests CTA of aorta with LE runoff, he does not recommend heparin drip as he does not think the symptoms are acute. Denies fever, chills, chest pain, SOB, focal weakness/numbness, headache. Vascular surgery team at the bedside on pt's arrival to the ED, ordered the CTA and trish the patients labs. - Physicial Exam PE: 03/30/19 14:42 agree with resident exam L foot is cooler than R but not cold No color change Mildly decreased sensation to L foot No palpable DP or TP pulses - Medical Decision Making 03/30/19 14:45 63yo F presents to the ED with painful foot with numbness. Pt taken to CTA by vascular team who has already admitted her and is taking over management of patient. Pre-op labs were ordered and drawn by the vascular team. Pt likely to go to OR but CTA is being done for OR planning. Case discussed in detail with admitting physician including history, physical exam and ancillary studies. Admitting physician has assumed care for the patient, will follow all pending diagnostics and will complete the evaluation and treatment. Heart Score/ECG Review #1 03/30/19 16:47 Twelve-lead EKG was performed and reviewed by me. Normal sinus rhythm, rate 70. Normal axis and intervals. No ST elevations. T wave inversions in 1, aVL, V5 and V6
[2019-03-30 17:37] VITALS: BMI 29.0
[2019-03-30] MEDS ORDERED: SODIUM CHLORIDE 0.9% 500 ML INFUS.BAG IV ONE (18:04)
[2019-03-30] MEDS: oxyCODONE HCL 5 MG TABLET PO PRN (18:58)
--- NOTE | 2019-03-30 21:47 | PN ---
Teaching Attending Note ATTENDING PHYSICIAN STATEMENT I saw and evaluated the patient. I reviewed the resident's note and discussed the case with the resident. I agree with the resident's findings and plan as documented. SUBJECTIVE: Seen and examined; please see resident note for HPI/PMH/PSH/FH/SH/ROS. Briefly , this is a 63 y/o female presenting as a consultation to the medicine service for hyperglycemia in the setting of insulin pump usage. She was sent in from her vascular surgeon's office for a cold leg. She used to have horribly uncontrolled glucose with A1c 14 now 8-range. Fsg was 300s after pump DCd. OBJECTIVE: NAD, AAO, resting in bed NC AT EOMI PERRLA RRR s1/2 no mgr Lungs CTAB, w/ sym exp NT ND +BS Normal mood, appropriate behavior EKG reviewed CBC unremarkable BMP with hyperglycemia to 223 (increased on fsg to 306) Prelim CTA runoff report shows no aortoiliac occlusive disease, moderate stenosis of the R-KNOBBER with occlusion of the R-superficial FA with deep FA patent with collatorals allowing reconstittion of the distal SFA. Popliteal A. and trifurcation vessels intact. L-KNOBBER occluded with reconstitution of the superficial and deep FA through proximal collaterals and L-SFA and popliteal A. patent as well as trifurcation vessels. ASSESSMENT AND PLAN: Patient presents from her vascular surgeon's office for suspected limb ischemia ; medicine has been consulted to manage insulin pump ## DM2 w/ hyperglycemia on insulin pump w/ neuropathy # Peripheral arterial disease, r/o CLI (s/p L-femoral endarterectomy 2007) # Hx HLD # Hx HTN -For DM2 with hyperglycemia, I recommend she restart her insulin pump at her home rate. She is not NPO at this time and has near-ideal control at home per her reported values. Prior to procedure, if NPO, can hold basal rate as she is a type 2 diabetic, but would resume home settings after she is taking PO. Fsg should be documented in chart and should she be persistently hypo or hyper we can provide additional ISS coverage or adjust the basal rate. The reading of 300 was taken after pump was DCd; will recheck after resumed. -For htn hx, noted primary team continued home meds. Agree. Will defer to CV further adjustments. -Deferring management of vascular surgery issues to primary team Full Code
[2019-03-30] MEDS ORDERED: metFORMIN HCL 500 MG TABLET (FP) PO SCH (22:00)
[2019-03-30] MEDS ORDERED: INSULIN (NOVOLOG) ASPART 100 UNITS/ML 10ML VIAL ONE (22:23)
[2019-03-30] MEDS: INSULIN SLIDING SCALE (NOVOLOG) 1 VIAL SQ SCH (22:42)
[2019-03-30] MEDS: HEPARIN NA (PORCINE) 5,000 UNITS/ML 1ML VIAL SQ SCH (22:42)
[2019-03-30] MEDS: DOCUSATE SODIUM 100 MG CAPSULE (FP) PO SCH (22:42)
--- NOTE | 2019-03-31 03:04 | CONSULT ---
Consultation: REQUESTING PROVIDER: CONSULT REQUEST: We have been asked to medically evaluate this patient for ( specify). HISTORY OF PRESENT ILLNESS . 63 y/o F w/ PMhx htn, hld, IDDM (has Insulin pump), PAD s/p L femoral endartectomy, now presents to ED after being sent from Dr Mena's office for evaluation of cold leg.we were asked to consult this patient for diabetes management- patient usually uses an insulin pump however it was stopped while has been in the hospital in exchange for a sliding scale and her sugar is not well controlled while shes been here it has been in the 300's; she states she is compliant with checking her sugars and her Hba1c went down from 14 to 8 since she has been on the pump (her cutting and printing machine operator is dr vasquez) REVIEW OF SYSTEMS: CONSTITUTIONAL: Absent: fever, chills, diaphoresis, generalized weakness, malaise, loss of appetite, weight change HEENT: Absent: rhinorrhea, nasal congestion, throat pain, throat swelling, difficulty swallowing, mouth swelling, ear pain, eye pain, visual changes CARDIOVASCULAR: Absent: chest pain, syncope, palpitations, irregular heart rate, lightheadedness , peripheral edema RESPIRATORY: Absent: cough, shortness of breath, dyspnea with exertion, orthopnea, wheezing, stridor, hemoptysis GASTROINTESTINAL: Absent: abdominal pain, abdominal distension, nausea, vomiting, diarrhea, constipation, melena, hematochezia GENITOURINARY: Absent: dysuria, frequency, urgency, hesitancy, hematuria, flank pain, genital pain MUSCULOSKELETAL: Absent: myalgia, arthralgia, joint swelling, back pain, neck pain SKIN: Absent: rash, itching, pallor HEMATOLOGIC/IMMUNOLOGIC: Absent: easy bleeding, easy bruising, lymphadenopathy, frequent infections ENDOCRINE: Absent: unexplained weight gain, unexplained weight loss, heat intolerance, cold intolerance NEUROLOGIC: Absent: headache, focal weakness or paresthesias, dizziness, unsteady gait, seizure, mental status changes, bladder or bowel incontinence PSYCHIATRIC: Absent: anxiety, depression, suicidal or homicidal ideation, hallucinations. PHYSICAL EXAMINATION Vital Signs - 24 hr 03/30/19 03/30/19 03/30/19 12:34 17:17 22:02 Temperature 98.5 F 97.7 F 97.7 F Pulse Rate 80 70 72 Respiratory 18 18 19 Rate Blood Pressure 138/72 177/88 H 137/57 L O2 Sat by Pulse 98 98 Oximetry (%) 03/31/19 01:34 Temperature 98 F Pulse Rate 70 Respiratory 18 Rate Blood Pressure 140/70 O2 Sat by Pulse Oximetry (%) GENERAL: Awake, alert, and fully oriented, in no acute distress. EYES:PEERLA: EOMI no scleral icterus. NECK: no JVD; no lymphadenopathy LUNGS: CTA B/L; no rales, rhonchi or wheezing. HEART: Regular rate and rhythm, normal S1 and S2 without murmur, rub or gallop. ABDOMEN: Soft, nontender, not distended, normoactive bowel sounds, no guarding, no rebound, no masses. No hepatomegaly or splenomegaly. MUSCULOSKELETAL: Normal range of motion at all joints. No bony deformities or tenderness. No CVA tenderness. EXTREMITIES: left leg cool ; with minimal pulses NEUROLOGICAL: Cranial nerves II-XII intact. Normal speech. Normal gait. PSYCHIATRIC: Cooperative. Good eye contact. Appropriate mood and affect. SKIN: Warm, dry, normal turgor, no rashes or lesions noted. Laboratory Results - last 24 hr 03/30/19 03/30/19 03/30/19 14:32 14:32 14:32 WBC 9.0 RBC 4.43 Hgb 12.9 Hct 39.1 D MCV 88.2 MCH 29.1 MCHC 33.0 RDW 14.2 Plt Count 346 MPV 8.5 Absolute Neuts (auto) 5.7 Neutrophils % 63.3 Lymphocytes % 26.8 Monocytes % 6.6 Eosinophils % 1.8 Basophils % 1.5 Nucleated RBC % 0 PT with INR 9.60 L INR 0.82 L PTT (Actin FS) 29.3 Sodium Potassium Chloride Carbon Dioxide Anion Gap BUN Creatinine Est GFR (CKD-EPI)AfAm Est GFR (CKD-EPI)NonAf POC Glucometer Random Glucose Calcium Total Bilirubin AST ALT Alkaline Phosphatase Total Protein Albumin Blood Type A NEGATIVE Antibody Screen Negative 03/30/19 03/30/19 03/30/19 14:32 18:06 22:27 WBC RBC Hgb Hct MCV MCH MCHC RDW Plt Count MPV Absolute Neuts (auto) Neutrophils % Lymphocytes % Monocytes % Eosinophils % Basophils % Nucleated RBC % PT with INR INR PTT (Actin FS) Sodium 139 Potassium 4.3 Chloride 106 Carbon Dioxide 28 Anion Gap 5 L BUN 20.8 H Creatinine 1.2 Est GFR (CKD-EPI)AfAm 56.09 Est GFR (CKD-EPI)NonAf 48.40 POC Glucometer 129 306 Random Glucose 223 H Calcium 9.2 Total Bilirubin 0.2 AST 9 L ALT 21 Alkaline Phosphatase 83 Total Protein 7.4 Albumin 3.8 Blood Type Antibody Screen Active Medications Generic Name Dose Route Start Last Admin Trade Name Freq PRN Reason Stop Dose Admin Acetaminophen 650 mg 03/30/19 18:00 Tylenol - PO Q6H PRN PAIN OR FEVER Docusate Sodium 100 mg 03/30/19 22:00 03/30/19 22:42 Colace - PO 100 mg BID KELLEN Administration Heparin Sodium (Porcine) 5,000 unit 03/30/19 22:00 03/30/19 22:42 Heparin - SQ 5,000 unit TID KELLEN Administration Hydrochlorothiazide 25 mg 03/31/19 10:00 Hctz - PO DAILY KELLEN Insulin Aspart 1 vial 03/30/19 22:00 03/30/19 22:42 Novolog Vial Sliding Scale - SQ 8 units ACHS [facility] Administration Protocol Lisinopril 30 mg 03/31/19 10:00 Prinivil PO DAILY KELLEN Morphine Sulfate 2 mg 03/30/19 18:02 Morphine Sulfate IVPUSH Q4H PRN PAIN LEVEL 7 - 10 Non-Formulary Medication 145 mcg 03/31/19 10:00 Linaclotide [Linzess] PO DAILY KELLEN Oxycodone HCl 5 mg 03/30/19 17:59 03/30/19 18:58 Roxicodone - PO 5 mg Q4H PRN Administration PAIN LEVEL 1-5 Oxycodone HCl 10 mg 03/30/19 17:59 Roxicodone - PO Q4H PRN PAIN LEVEL 6-10 Polyethylene Glycol 17 gm 03/30/19 18:01 Miralax (For Daily Use) - PO DAILY PRN CONSTIPATION ASSESSMENT/PLAN: 63 y/o F w/ PMhx htn, hld, IDDM (has Insulin pump), PAD s/p L femoral endartectomy, now presents to ED after being sent from Dr Mena's office for evaluation of cold leg. #Diabetes please continue with patients insulin pump as ISS is not adequate coverage -try and obtain from dr. vasquez regarding her basal insulin rate on the pump -BGMS achs Dispo: We will continue to follow the patient. Thank you for this consultative opportunity. ATTENDING PHYSICIAN STATEMENT I saw and evaluated the patient. I reviewed the resident's note and discussed the case with the resident. I agree with the resident's findings and plan as documented. SUBJECTIVE: OBJECTIVE: ASSESSMENT AND PLAN:
[2019-03-31] MEDS: HEPARIN NA (PORCINE) 5,000 UNITS/ML 1ML VIAL SQ SCH ×3 (05:36→22:44)
[2019-03-31] MEDS: oxyCODONE HCL 5 MG TABLET PO PRN ×3 (05:37→22:43)
[2019-03-31] MEDS: ACETAMINOPHEN 325 MG TABLET (FP) PO PRN ×2 (05:38→22:44)
[2019-03-31] MEDS: INSULIN SLIDING SCALE (NOVOLOG) 1 VIAL SQ SCH ×4 (06:51→22:58)
[2019-03-31 07:48] LABS: BASO % 0.9 % (0-2.0); EOS % 2.2 % (0-4.5); HEMATOCRIT 37.1 % (32.4-45.2); HEMOGLOBIN 12.2 GM/dL (10.7-15.3); LYMPH % 37.3 % (8-40); MCH 28.9 pg (25.7-33.7); MCHC 32.8 g/dl (32.0-36.0); MEAN CELL VOLUME 87.9 fl (80-96); MEAN PLT VOLUME 8.8 fl (7.5-11.1); MONO % 6.6 % (3.8-10.2); PLATELET COUNT 311 K/MM3 (134-434); RBC 4.22 M/mm3 (3.60-5.2); RDW 14.3 % (11.6-15.6); WHITE BLOOD COUNT 7.2 K/mm3 (4.0-10.0)
[2019-03-31 08:08] LABS: ALBUMIN 3.2 g/dl (3.4-5.0); BILIRUBIN,TOTAL 0.3 mg/dL (0.2-1); BLOOD UREA NITROGEN 14.2 mg/dL (7-18); CALCIUM 8.6 mg/dL (8.5-10.1); CREATININE 0.9 mg/dL (0.55-1.3); POTASSIUM 4.3 mmol/L (3.5-5.1); TOT PROT 6.5 g/dl (6.4-8.2)
[2019-03-31] MEDS: LISINOPRIL 10 MG TABLET (FP) PO SCH (09:25)
[2019-03-31] MEDS: HYDROCHLOROTHIAZIDE 25 MG TABLET (FP) PO SCH (09:25)
[2019-03-31] MEDS: DOCUSATE SODIUM 100 MG CAPSULE (FP) PO SCH ×2 (09:25→22:44)
[2019-03-31] MEDS ORDERED: INSULIN (NOVOLOG) ASPART 100 UNITS/ML 10ML VIAL ONE ×2 (12:12→22:34)
[2019-03-31] MEDS ORDERED: IBUPROFEN 600 MG TABLET (FP) PO PRN (12:46)
[2019-03-31] MEDS ORDERED: traZODone HCL 100 MG TABLET (FP) PO SCH (13:00)
[2019-03-31] MEDS ORDERED: ESCITALOPRAM OXALATE 20 MG TABLET (FP) PO SCH (13:00)
--- NOTE | 2019-03-31 13:04 | PN ---
Progress Note (short form) - Note Progress Note: CTA shows narrowed, thrombus filled distal aorta. Occlusion of the left WAITER/WAITRESS BAR at site of prior endarterectomy with patent SFA, DFA, popliteal and tibial arteries Right SFA occluded with reconstitution of popliteal artery. On schedule for Left femoral endarterectomy 04/04/19. Cardio /Francescone consulted Cont medical optimization and clearance for impending procedure <Brian Rashid - Last Filed: 03/31/19 13:04> - Note Progress Note: Exam unchanged Await cardiology evaluation for clearance for surgery. Tentative OR Thursday. <Viral Mena - Last Filed: 04/01/19 08:31>
--- NOTE | 2019-03-31 14:27 | PN ---
Teaching Attending Note Name of Resident: Nella King ATTENDING PHYSICIAN STATEMENT I saw and evaluated the patient. I reviewed the resident's note and discussed the case with the resident. I agree with the resident's findings and plan as documented. SUBJECTIVE:c/o L foot pain. states her last A1c was 8 but previous to that it was 14 and was started with insulin pump at that time. sugars are consistently mid 100 ranges she reports and has sliding scale that she follows. denies CP, SOB, fever, chills, N/V/C/D OBJECTIVE: Last Vital Signs Temp Pulse Resp BP Pulse Ox 97.5 F L 65 18 131/78 98 03/31/19 10:00 03/31/19 10:00 03/31/19 10:00 03/31/19 10:00 03/31/19 09:00 General NAD CV S1 S2 RRR no murmur/rub/gallop Lungs CTA B/L no wheezing/rales/rhonchi abdomen soft NT/ND extremities L foot tenderness to light touch from below the knee. leg is cold. unable to assess for pulse due to tenderness ASSESSMENT AND PLAN: 63yo F with PMH HTN, DM, PAD s/p endartectomy and dyslipidemia presented to the ER with cold L foot and found to have L FROZEN YOGURT MAKER and R SFA. Medicine consulted to optimize pre-existing conditions 1. DM- insulin pump currently off. will cont on iss here using her range of what she injects at home since there is significant improvement. 2. DAMIEN- liekly dehydration. now resolved 3. HTN- controlled. 4. Subacute L FROZEN YOGURT MAKER and R SFA- plan for surgery on 04/04. spoke with vascular who states no indication for anticoagulation as this is subacute in nature. pain control. cardio consulted for cardiac optimization. 5. DVT ppx- hep sq 6. Thank you for this consultative opportunity
--- NOTE | 2019-03-31 15:30 | CON.CARD ---
Consult Consult Specialty:: Cardiology Referred by:: Medicine Reason for Consultation:: preop - History of Present Illness Chief Complaint: foot pain History of Present Illness: 63F h/o HTN, HLD, DM with insulin pump, PAD s/p L fem endarterectomy 2007 p/w cold leg. Pain in L foot for about a month, now feeling cold and tender to palpation. No chest pain, palps, dizziness, dyspnea although is mostly sedentary due to leg/foot pain. Sees Dr. Laura for cardio, has been at least a year since she saw him and two years or more since she had cardiac testing. - Past Medical History DIRECTOR OPERATING: No: Alzheimer's, CVA, Dementia, Migraine, Multiple Sclerosis, Peripheral Neuropathy, Parkinson's, Seizure, Syncope, TIA, Vertigo, Other Cardio/Vascular: Yes: HTN, Hyperlipdemia, Other (PAD). No: AFIB, CAD, CHF, Deep Vein Thrombosis Endocrine: Yes: Diabetes Mellitus - Alcohol/Substance Use Hx Alcohol Use: No - Smoking History Smoking history: Unknown if ever smoked Have you smoked in the past 12 months: No Aproximately how many cigarettes per day: 2 If you are a former smoker, when did you quit?: 6 months ago - Social History ADL: Independent History of Recent Travel: No Home Medications - Allergies Allergies/Adverse Reactions: Allergies Allergy/AdvReac Type Severity Reaction Status Date / Time No Known Allergies Allergy Verified 03/30/19 12:34 - Home Medications Home Medications: Ambulatory Orders Lisinopril [Prinivil -] 30 mg PO DAILY 07/04/14 Insulin Lispro [Humalog] 1 pump SQ PRN PRN 03/30/19 Budesonide/Formeterol Fumarate [SYMBICORT 160/4.5mcg -] 2 puff PO BID 03/31/19 Escitalopram Oxalate [Lexapro -] 20 mg PO DAILY 03/31/19 Ibuprofen [Motrin -] 600 mg PO Q6H 03/31/19 Pravastatin Sodium 20 mg PO DAILY 03/31/19 traZODone HCL [Trazodone HCl] 100 mg PO DAILY 03/31/19 Family Disease History - Family Disease History Family History: Unremarkable Review of Systems - Review of Systems Constitutional: reports: No Symptoms Eyes: reports: No Symptoms HENT: reports: No Symptoms Neck: reports: No Symptoms Cardiovascular: reports: No Symptoms Respiratory: reports: No Symptoms Gastrointestinal: reports: No Symptoms Genitourinary: reports: No Symptoms Musculoskeletal: reports: No Symptoms Integumentary: reports: No Symptoms Neurological: reports: No Symptoms Endocrine: reports: No Symptoms Hematology/Lymphatic: reports: No Symptoms Psychiatric: reports: No Symptoms Vital Signs: Vital Signs Temperature 98.1 F 03/31/19 14:44 Pulse Rate 83 03/31/19 14:44 Respiratory Rate 20 03/31/19 14:44 Blood Pressure 109/83 03/31/19 14:44 O2 Sat by Pulse Oximetry (%) 98 03/31/19 09:00 Constitutional: Yes: Well Nourished, No Distress, Calm Eyes: Yes: Conjunctiva Clear, EOM Intact HENT: Yes: Atraumatic, Normocephalic Neck: Yes: Supple, Trachea Midline Respiratory: Yes: Regular, CTA Bilaterally Gastrointestinal: Yes: Normal Bowel Sounds, Soft Cardiovascular: Yes: Regular Rate and Rhythm JVD: No Carotid Bruit: No PMI: Non-Displaced Heart Sounds: Yes: S1, S2 Musculoskeletal: No: Back Pain Extremities: Yes: Cold, Other (L plow and boring machine tender to palpation) Edema: No Peripheral Pulses WNL: No Peripheral Pulses: 0 Left Popliteal, 0 Left Doralis Pedis, 0 Right Dorsalis Pedis, 1+ Right Popliteal Integumentary: No: Jaundice Neurological: Yes: Alert, Oriented Psychiatric: No: Agitated - Other Data Labs, Other Data: CBC, BMP 03/31/19 06:24 03/31/19 06:24 INR, PTT INR 0.82 (0.83-1.09) L 03/30/19 14:32 Assessment/Plan EKG sinus, nl intervals, lateral TWI stable compared to prior CTA: narrow, thrombus filled distal aorta. Occlusion of the left METAL SMELTER at site of prior endarterectomy with patent SFA, DFA, popliteal and tibial arteries Right SFA occluded with reconstitution of popliteal artery preop evaluation, PAD - plan for open surgery and placement of aortic covered stent - not on heparin gtt per vascular as this is subacute - patient is asymptomatic however limited functional status - nuclear stress test ordered for risk stratification HLD - cont statin DM - manage per primary HTN - stable, cont current meds
--- NOTE | 2019-03-31 15:57 | PN ---
Physical Exam: SUBJECTIVE: Patient seen and examined at bedside today. Pt in extreme pain to touch on LLE up to mid-oakley. OBJECTIVE: Vital Signs Period Temp Pulse Resp BP Sys/Mendoza Pulse Ox Last 24 Hr 97.5 F-98.2 F 65-83 18-20 109-177/57-88 96-98 GENERAL: In NAD LUNGS: Breath sounds equal, clear to auscultation bilaterally, no wheezes, no crackles, no accessory muscle use. HEART: Regular rate and rhythm, S1, S2 without murmur, rub or gallop. ABDOMEN: Soft, nontender, nondistended, normoactive bowel sounds, no guarding, no masses EXTREMITIES: 2+ pulses b/l UE, diminished pulses on LLE, 2+ pulses RLE, no edema. NEUROLOGICAL: Sensory intact b/l UE & LE. Extremely painful on palpation of LLE Laboratory Results - last 24 hr Laboratory Last Values WBC 7.2 K/mm3 (4.0-10.0) 03/31/19 06:24 RBC 4.22 M/mm3 (3.60-5.2) 03/31/19 06:24 Hgb 12.2 GM/dL (10.7-15.3) 03/31/19 06:24 Hct 37.1 % (32.4-45.2) 03/31/19 06:24 MCV 87.9 fl (80-96) 03/31/19 06:24 MCH 28.9 pg (25.7-33.7) 03/31/19 06:24 MCHC 32.8 g/dl (32.0-36.0) 03/31/19 06:24 RDW 14.3 % (11.6-15.6) 03/31/19 06:24 Plt Count 311 K/MM3 (134-434) 03/31/19 06:24 MPV 8.8 fl (7.5-11.1) 03/31/19 06:24 Absolute Neuts (auto) 3.8 K/mm3 (1.5-8.0) 03/31/19 06:24 Neutrophils % 53.0 % (42.8-82.8) 03/31/19 06:24 Lymphocytes % 37.3 % (8-40) D 03/31/19 06:24 Monocytes % 6.6 % (3.8-10.2) 03/31/19 06:24 Eosinophils % 2.2 % (0-4.5) 03/31/19 06:24 Basophils % 0.9 % (0-2.0) 03/31/19 06:24 Nucleated RBC % 0 % (0-0) 03/31/19 06:24 PT with INR 9.60 SEC (9.7-13.0) L 03/30/19 14:32 INR 0.82 (0.83-1.09) L 03/30/19 14:32 PTT (Actin FS) 29.3 SECONDS (25.2-36.5) 03/30/19 14:32 Sodium 141 mmol/L (136-145) 03/31/19 06:24 Potassium 4.3 mmol/L (3.5-5.1) 03/31/19 06:24 Chloride 108 mmol/L (98-107) H 03/31/19 06:24 Carbon Dioxide 27 mmol/L (21-32) 03/31/19 06:24 Anion Gap 6 MMOL/L (8-16) L 03/31/19 06:24 BUN 14.2 mg/dL (7-18) 03/31/19 06:24 Creatinine 0.9 mg/dL (0.55-1.3) 03/31/19 06:24 Est GFR (CKD-EPI)AfAm 79.42 03/31/19 06:24 Est GFR (CKD-EPI)NonAf 68.53 03/31/19 06:24 POC Glucometer 266 UNITS (80-120) 03/31/19 11:54 Random Glucose 188 mg/dL (74-106) H 03/31/19 06:24 Calcium 8.6 mg/dL (8.5-10.1) 03/31/19 06:24 Total Bilirubin 0.3 mg/dL (0.2-1) 03/31/19 06:24 AST 10 U/L (15-37) L 03/31/19 06:24 ALT 18 U/L (13-61) 03/31/19 06:24 Alkaline Phosphatase 73 U/L (45-117) 03/31/19 06:24 Total Protein 6.5 g/dl (6.4-8.2) 03/31/19 06:24 Albumin 3.2 g/dl (3.4-5.0) L 03/31/19 06:24 Blood Type A NEGATIVE 03/30/19 14:32 Antibody Screen Negative 03/30/19 14:32 Active Medications Generic Name Dose Route Start Last Admin Trade Name Freq PRN Reason Stop Dose Admin Acetaminophen 650 mg 03/30/19 18:00 03/31/19 05:38 Tylenol - PO 650 mg Q6H PRN Administration PAIN OR FEVER Atorvastatin Calcium 10 mg 03/31/19 22:00 Lipitor - PO HS KELLEN Docusate Sodium 100 mg 03/30/19 22:00 03/31/19 09:25 Colace - PO 100 mg BID KELLEN Administration Heparin Sodium (Porcine) 5,000 unit 03/30/19 22:00 03/31/19 14:24 Heparin - SQ 5,000 unit TID KELLEN Administration Hydrochlorothiazide 25 mg 03/31/19 10:00 03/31/19 09:25 Hctz - PO 25 mg DAILY KELLEN Administration Insulin Aspart 1 vial 03/30/19 22:00 03/31/19 12:13 Novolog Vial Sliding Scale - SQ 6 units ACHS KELLEN Administration Protocol Lisinopril 30 mg 03/31/19 10:00 03/31/19 09:25 Prinivil PO 30 mg DAILY KELLEN Administration Morphine Sulfate 2 mg 03/30/19 18:02 Morphine Sulfate IVPUSH Q4H PRN PAIN LEVEL 7 - 10 Non-Formulary Medication 145 mcg 03/31/19 10:00 Linaclotide [Linzess] PO DAILY KELLEN Oxycodone HCl 5 mg 03/30/19 17:59 03/31/19 12:13 Roxicodone - PO 5 mg Q4H PRN Administration PAIN LEVEL 1-5 Oxycodone HCl 10 mg 03/30/19 17:59 03/31/19 05:37 Roxicodone - PO 10 mg Q4H PRN Administration PAIN LEVEL 6-10 Polyethylene Glycol 17 gm 03/30/19 18:01 Miralax (For Daily Use) - PO DAILY PRN CONSTIPATION ASSESSMENT/PLAN: 63 y/o F w/ PMH IDDM (on insulin pump), HTN HLD, PAD s/p endartectomy, presenting with acute on chronic arterial occlusion. Medicine consulted for diabetes management prior to left femoral endarterectomy procedure on Thursday. #IDDM -C/w Insulin pump -Sliding scale NovoloU received today -POC -F/u basal insulin rate with direct marketing coordinator Dr. Lopez (unable to contact today) -F/u HbA1c (as per pt, decreased from 14 to 8 in the past few months) #Left arterial occlusion -CTA: Extensive infrarenal aortic atherosclerotic disease resulting in stenosis up to 70-90% with a focal /short segment dissection versus ulcerated plaque. Extensive bilateral iliofemoral atherosclerotic disease with: - 70-90% stenosis in the distal right EIA/proximal SPORTS JOURNALIST, occlusion of the right SFA with reconstitution of flow in the right popliteal artery which demonstrates less than 50% stenosis and patent three-vessel infrapopliteal runoff. - 50-70% stenosis in the left EIA followed by occlusion of the left SPORTS JOURNALIST and reconstitution of flow in the left DFA and SFA which demonstrates high-grade stenosis at the origin. Widely patent left popliteal and infrapopliteal arteries with three-vessel runoff noted. Marked thickening of the adrenal glands likely due to hyperplasia. Further characterization with MRI may be obtained as clinically warranted. 1.5 cm left upper renal pole cyst. Likely right adnexal hydrosalpinx. -Dr. Mean -Cardio consulted (Dr. Eid): - nuclear stress test ordered for risk stratification #HLD -Atorvastatin #HTN -Lisinopril -HCTZ #DVT PPX -Heparin 5,000 SQ Visit type - Emergency Visit Emergency Visit: No - New Patient This patient is new to me today: No - Critical Care Critical Care patient: No ATTENDING PHYSICIAN STATEMENT I saw and evaluated the patient. I reviewed the resident's note and discussed the case with the resident. I agree with the resident's findings and plan as documented. SUBJECTIVE: OBJECTIVE: ASSESSMENT AND PLAN:
--- NOTE | 2019-03-31 17:04 | EKG ---
Test Reason : Blood Pressure : / mmHG Vent. Rate : 070 BPM Atrial Rate : 070 BPM P-R Int : 132 ms QRS Dur : 074 ms QT Int : 416 ms P-R-T Axes : 040 024 143 degrees QTc Int : 449 ms NORMAL SINUS RHYTHM ABNORMAL ECG WHEN COMPARED WITH ECG OF 06-APR-2018 20:06, T WAVE INVERSION NO LONGER EVIDENT IN ANTERIOR LEADS Confirmed by VICENTE MORGAN MD ([id number]) on 03/31/2019 5:03:38 PM Referred By: Confirmed By:VICENTE MORGAN MD
[2019-03-31] MEDS: ATORVASTATIN CA 10 MG TABLET (FP) PO SCH (22:44)
[2019-04-01] MEDS: HEPARIN NA (PORCINE) 5,000 UNITS/ML 1ML VIAL SQ SCH ×3 (06:32→21:38)
[2019-04-01] MEDS: INSULIN SLIDING SCALE (NOVOLOG) 1 VIAL SQ SCH ×4 (06:34→21:45)
[2019-04-01] MEDS: oxyCODONE HCL 5 MG TABLET PO PRN ×2 (06:41→20:02)
[2019-04-01 07:30] LABS: BASO % 1.2 % (0-2.0); EOS % 2.5 % (0-4.5); HEMATOCRIT 40.3 % (32.4-45.2); HEMOGLOBIN 13.5 GM/dL (10.7-15.3); LYMPH % 35.9 % (8-40); MCHC 33.4 g/dl (32.0-36.0); MEAN CELL VOLUME 86.9 fl (80-96); MEAN PLT VOLUME 8.6 fl (7.5-11.1); MONO % 8.1 % (3.8-10.2); NEUT % 52.3 % (42.8-82.8); PLATELET COUNT 334 K/MM3 (134-434); RBC 4.64 M/mm3 (3.60-5.2); RDW 13.7 % (11.6-15.6); WHITE BLOOD COUNT 5.7 K/mm3 (4.0-10.0)
[2019-04-01] MEDS: LISINOPRIL 10 MG TABLET (FP) PO SCH ×2 (07:36→11:15)
[2019-04-01] MEDS ORDERED: INSULIN (LEVEMIR) 100 UNITS/ML UNITS SQ STA (07:40)
[2019-04-01 08:00] LABS: ALBUMIN 3.6 g/dl (3.4-5.0); BILIRUBIN,TOTAL 0.4 mg/dL (0.2-1); BLOOD UREA NITROGEN 12.2 mg/dL (7-18); CALCIUM 9.3 mg/dL (8.5-10.1); POTASSIUM 4.5 mmol/L (3.5-5.1); TOT PROT 7.1 g/dl (6.4-8.2)
--- NOTE | 2019-04-01 09:26 | PN ---
Progress Note (short form) - Note Progress Note: Surgery Awaiting cardiac clearance. Patient currently off the floor for stress test. Nursing reports no overnight issues. Will follow
[2019-04-01] MEDS ORDERED: REGADENOSON 0.4 MG/5 ML PRE-FILLED SYRINGE IVPUSH ONE ×2 (09:30→09:58)
[2019-04-01] MEDS: DOCUSATE SODIUM 100 MG CAPSULE (FP) PO SCH ×2 (11:15→21:38)
[2019-04-01] MEDS: HYDROCHLOROTHIAZIDE 25 MG TABLET (FP) PO SCH (11:15)
--- NOTE | 2019-04-01 11:46 | PN ---
Progress Note, Physician Chief Complaint: seen and examined in Cardiology No CP or SOB - Current Medication List Current Medications: Active Medications Acetaminophen (Tylenol -) 650 mg PO Q6H PRN PRN Reason: PAIN OR FEVER Last Admin: 03/31/19 22:44 Dose: 650 mg Atorvastatin Calcium (Lipitor -) 10 mg PO HS [facility] Last Admin: 03/31/19 22:44 Dose: 10 mg Docusate Sodium (Colace -) 100 mg PO BID [facility] Last Admin: 04/01/19 11:15 Dose: 100 mg Heparin Sodium (Porcine) (Heparin -) 5,000 unit SQ TID [facility] Last Admin: 04/01/19 06:32 Dose: 5,000 unit Hydrochlorothiazide (Hctz -) 25 mg PO DAILY [facility] Last Admin: 04/01/19 11:15 Dose: 25 mg Insulin Aspart (Novolog Vial Sliding Scale -) 1 vial SQ ACHS [facility]; Protocol Last Admin: 04/01/19 06:34 Dose: 4 units Lisinopril (Prinivil) 30 mg PO DAILY [facility] Last Admin: 04/01/19 11:15 Dose: Not Given Morphine Sulfate (Morphine Sulfate) 2 mg IVPUSH Q4H PRN PRN Reason: PAIN LEVEL 7 - 10 Non-Formulary Medication (Linaclotide [Linzess]) 145 mcg PO DAILY [facility] Oxycodone HCl (Roxicodone -) 5 mg PO Q4H PRN PRN Reason: PAIN LEVEL 1-5 Last Admin: 03/31/19 12:13 Dose: 5 mg Oxycodone HCl (Roxicodone -) 10 mg PO Q4H PRN PRN Reason: PAIN LEVEL 6-10 Last Admin: 04/01/19 06:41 Dose: 10 mg Polyethylene Glycol (Miralax (For Daily Use) -) 17 gm PO DAILY PRN PRN Reason: CONSTIPATION - Objective Vital Signs: Vital Signs Temperature 98.1 F 04/01/19 07:00 Pulse Rate 81 04/01/19 07:00 Respiratory Rate 18 04/01/19 07:00 Blood Pressure 156/72 04/01/19 07:00 O2 Sat by Pulse Oximetry (%) 100 03/31/19 21:00 Constitutional: Yes: No Distress, Calm Eyes: Yes: Conjunctiva Clear Cardiovascular: Yes: Regular Rate and Rhythm Respiratory: Yes: CTA Bilaterally Gastrointestinal: Yes: Soft Edema: No Neurological: Yes: Alert, Oriented ...Motor Strength: WNL Labs: CBC, BMP 04/01/19 06:45 04/01/19 06:45 INR, PTT INR 0.82 (0.83-1.09) L 03/30/19 14:32 - ....Imaging EKG: Image Reviewed Other: Other (LEXISCAN Stress today: no ischemia, normalEF, no TID) Assessment/Plan DATA: EKG sinus, nl intervals, lateral TWI stable compared to prior CTA: narrow, thrombus filled distal aorta. Occlusion of the left PHOTOGRAPHIC SPOTTER at site of prior endarterectomy with patent SFA, DFA, popliteal and tibial arteries Right SFA occluded with reconstitution of popliteal artery IMP/REC: 1. Preop evaluation, PAD: - plan for open surgery and placement of aortic covered stent - not on heparin gtt per vascular as this is subacute - patient is asymptomatic however limited functional status - nuclear stress test today showed no ischemia, normal LVEF and no evidence TID. -There are no cardiac contraindications to vascular surgery: she does not have anginal sx, she is euvolemic and no aortic stenosis. She is in NSR with normal LVEF. Blood pressure is well overall well controlled. -Would continue statin and Lisinopril -Pt should take Lisinopril AM of surgery with small sip of water -Will follow, thank you
[2019-04-01] MEDS: MORPHINE SULFATE 2 MG/ML VIAL IVPUSH PRN (12:05)
--- NOTE | 2019-04-01 12:15 | PN ---
Physical Exam: SUBJECTIVE: Patient seen and examined at bedside today. LLE pain present. No other complaints at his time. Nuclear stress test completed today. OBJECTIVE: Vital Signs Period Temp Pulse Resp BP Sys/Mendoza Pulse Ox Last 24 Hr 97.5 F-98.4 F 61-83 18-20 109-147/59-83 100 General: AOx3. Pain to LLE. Resp: CTABL. No incr work of breathing. Chest: 1S2 heard. No murmurs noted Abd: Soft, NTND. Bowel sounds +. Extr: Pain on palpation of LLE. Pulses diminished in LLE; 2+ RLE. No edema. Laboratory Results - last 24 hr Active Medications Generic Name Dose Route Start Last Admin Trade Name Freq PRN Reason Stop Dose Admin Acetaminophen 650 mg 03/30/19 18:00 03/31/19 22:44 Tylenol - PO 650 mg Q6H PRN Administration PAIN OR FEVER Atorvastatin Calcium 10 mg 03/31/19 22:00 03/31/19 22:44 Lipitor - PO 10 mg HS KELLEN Administration Docusate Sodium 100 mg 03/30/19 22:00 04/01/19 11:15 Colace - PO 100 mg BID KELLEN Administration Heparin Sodium (Porcine) 5,000 unit 03/30/19 22:00 04/01/19 06:32 Heparin - SQ 5,000 unit TID KELLEN Administration Hydrochlorothiazide 25 mg 03/31/19 10:00 04/01/19 11:15 Hctz - PO 25 mg DAILY KELLEN Administration Insulin Aspart 1 vial 03/30/19 22:00 04/01/19 06:34 Novolog Vial Sliding Scale - SQ 4 units ACHS KELLEN Administration Protocol Lisinopril 30 mg 03/31/19 10:00 04/01/19 11:15 Prinivil PO Not Given DAILY KELLEN Morphine Sulfate 2 mg 03/30/19 18:02 Morphine Sulfate IVPUSH Q4H PRN PAIN LEVEL 7 - 10 Non-Formulary Medication 145 mcg 03/31/19 10:00 Linaclotide [Linzess] PO DAILY KELLEN Oxycodone HCl 5 mg 03/30/19 17:59 03/31/19 12:13 Roxicodone - PO 5 mg Q4H PRN Administration PAIN LEVEL 1-5 Oxycodone HCl 10 mg 03/30/19 17:59 04/01/19 06:41 Roxicodone - PO 10 mg Q4H PRN Administration PAIN LEVEL 6-10 Polyethylene Glycol 17 gm 03/30/19 18:01 Miralax (For Daily Use) - PO DAILY PRN CONSTIPATION ASSESSMENT/PLAN: 63 y.o. F PM IDDM on insulin pump, HN, HLD, PAS s/p endartectomy, presented wih acute on chronic arterial occlusion. Admitted to medicine for management of diabetes prior to left femoral endarterectomy procedure to be done on Thursday. #IDDM -C/w insulin pump -C/w sliding scale: received 20U total yest, 14U this morning -Levemir 5 -F/u Lpc (Dr. Lopez) for basal insulin rate- have not been able to get in contact x2 days -HbA1c 9.1, decr from 14 a few months ago as per patient #Left arterial occlusion -CTA showing occlusion of left ACCOUNT COLLECTOR at the site of prior endarterectomy in 2007 -Cardio (Dr. Laura) on board for pre-op eval: open surgery and placement of aortic covered stent. Pt should take Lisinopril AM of surgery w/ small sip of water -Nuclear stress test done today; no ischemia, normal LVEF, no evidence TID. -Endarterectomy to be performed Thursday #Pain control -Oxy 5 q4h PRN if pain level -5, 10q6h if pain level -10 -Morphine 2mg q4h PRN -Tylenol PRN #HLD -C/w Atorvastatin #HTN -C/w Lisinopril -HCTZ #DVT PPX -Heparin SQ Visit type - Emergency Visit Emergency Visit: No - New Patient This patient is new to me today: No - Critical Care Critical Care patient: No ATTENDING PHYSICIAN STATEMENT I saw and evaluated the patient. I reviewed the resident's note and discussed the case with the resident. I agree with the resident's findings and plan as documented. SUBJECTIVE: OBJECTIVE: ASSESSMENT AND PLAN:
--- NOTE | 2019-04-01 13:29 | PN ---
Teaching Attending Note Name of Resident: Nella King ATTENDING PHYSICIAN STATEMENT I saw and evaluated the patient. I reviewed the resident's note and discussed the case with the resident. I agree with the resident's findings and plan as documented. We have been requested to take over the care of this patient from the vascular team. SUBJECTIVE:pt not seen as was down for stress test OBJECTIVE: Last Vital Signs Temp Pulse Resp BP Pulse Ox 98.1 F 81 18 156/72 100 04/01/19 07:00 04/01/19 07:00 04/01/19 07:00 04/01/19 07:00 03/31/19 21:00 ASSESSMENT AND PLAN: 63yo F with PMH HTN, DM, PAD s/p endartectomy and dyslipidemia presented to the ER with cold L foot and found to have L SOFTWARE APPLICATIONS DESIGNER and R SFA. 1. Subacute L SOFTWARE APPLICATIONS DESIGNER and R SFA- plan for surgery on 04/04. no need for anticoagulation athis time. plan for NMST to cardiac optimize prior to procedure currently being done. cont wiht pain control. Vascular surgery on board. 2. DM-uses pump at home. A1c 9.1. will start levemir 5 units and titrate to optimize control while hospitalized. she was recently started on pump by her adding machine operator can likely d/c back to pump per their recommendations on discharge. 3. DAMIEN- liekly dehydration. now resolved 4. HTN- controlled. 5. DVT ppx- hep sq
--- NOTE | 2019-04-01 15:34 | PN ---
Progress Note (short form) - Note Progress Note: Surgery Patient seen and examined at bedside with no new complaints. Still having left LE pain and unable to move right ankle of foot 2/2 pain. Vital Signs Temp 98.5 F 04/01/19 14:52 Pulse 79 04/01/19 14:52 Resp 20 04/01/19 14:52 BP 130/69 04/01/19 14:52 Pulse Ox 100 03/31/19 21:00 Intake & Output 03/31/19 04/01/19 04/01/19 23:59 11:59 23:59 Intake Total 450 350 Balance 450 350 Intake: IV 0 sl 0 Oral 450 350 Other: Voiding Method Toilet Toilet Toilet # Unmeasured Voids Void 1 1 Bowel Movement No No No CBC, BMP 04/01/19 06:45 04/01/19 06:45 PE: A&Ox3, NAD Unlabored resp on RA Extremities: unchanged from previous surgical exam. L foot fixed in dorsiflexion and slightly inverted, patient cannot AROM at ankle or toes 2/2 pain AAROM and PROM blocked 2/2 pain. foot cool to touch to ankle, severe pain in foot, extremely tender to touch. No mottling or gangrene noted. CTA shows narrowed, thrombus filled distal aorta. Occlusion of the left TRACK LINER OPERATOR at site of prior endarterectomy with patent SFA, DFA, popliteal and tibial arteries Right SFA occluded with reconstitution of popliteal artery. Problem List - Problems (1) Arterial occlusion Assessment/Plan: 63 y/o F w/ PMHx IDDM (Insulin pump), htn, hld, PAD s/p endartectomy, now presents with acute on chronic arterial occlusion. L foot cool to touch with sensory/motor deficits progressing over the past few days. Plan for for Left femoral endarterectomy and aortic stent with Dr Mena, . -Admit to medicine service as discussed -Cont medical optimization and cardiac clearance for impending procedure -NPO after midnight 04/04 for OR 04/04 - Hold SQ heparin -AM dose -2 units of PRBC on hold for OR Thursday04/04/19 Evaluation and plan discussed with Dr Mena Code(s): I70.90 - UNSPECIFIED ATHEROSCLEROSIS
[2019-04-01] MEDS: ACETAMINOPHEN 325 MG TABLET (FP) PO PRN (20:02)
[2019-04-01] MEDS ORDERED: INSULIN (NOVOLOG) ASPART 100 UNITS/ML 10ML VIAL ONE (21:35)
[2019-04-01] MEDS: ATORVASTATIN CA 10 MG TABLET (FP) PO SCH (21:37)
[2019-04-02] MEDS: HEPARIN NA (PORCINE) 5,000 UNITS/ML 1ML VIAL SQ SCH ×3 (06:42→21:47)
[2019-04-02] MEDS: MORPHINE SULFATE 2 MG/ML VIAL IVPUSH PRN (06:46)
[2019-04-02] MEDS: INSULIN (LEVEMIR) 100 UNITS/ML UNITS SQ SCH (06:48)
[2019-04-02] MEDS: INSULIN SLIDING SCALE (NOVOLOG) 1 VIAL SQ SCH ×5 (06:49→21:45)
--- NOTE | 2019-04-02 10:40 | PN ---
Progress Note (short form) - Note Progress Note: states pain controlled. denies CP, SOB, fever, chills, N/V/C/D Current Medications Generic Name Dose Route Start Last Admin Trade Name Freq PRN Reason Stop Dose Admin Acetaminophen 650 mg 03/30/19 18:00 04/01/19 20:02 Tylenol - PO 650 mg Q6H PRN Administration PAIN OR FEVER Atorvastatin Calcium 10 mg 03/31/19 22:00 04/01/19 21:37 Lipitor - PO 10 mg HS KELLEN Administration Docusate Sodium 100 mg 03/30/19 22:00 04/01/19 21:38 Colace - PO 100 mg BID KELLEN Administration Heparin Sodium (Porcine) 5,000 unit 03/30/19 22:00 04/02/19 06:42 Heparin - SQ 5,000 unit TID KELLEN Administration Hydrochlorothiazide 25 mg 03/31/19 10:00 04/01/19 11:15 Hctz - PO 25 mg DAILY KELLEN Administration Insulin Aspart 1 vial 03/30/19 22:00 04/02/19 06:56 Novolog Vial Sliding Scale - SQ 4 units ACHS KELLEN Administration Protocol Insulin Detemir 5 units 04/02/19 07:00 04/02/19 06:48 Levemir Vial SQ 5 units AM KELLEN Administration Lisinopril 30 mg 03/31/19 10:00 04/01/19 11:15 Prinivil PO Not Given DAILY [facility] Morphine Sulfate 2 mg 03/30/19 18:02 04/02/19 06:46 Morphine Sulfate IVPUSH 2 mg Q4H PRN Administration PAIN LEVEL 7 - 10 Non-Formulary Medication 145 mcg 03/31/19 10:00 Linaclotide [Linzess] PO DAILY KELLEN Oxycodone HCl 5 mg 03/30/19 17:59 03/31/19 12:13 Roxicodone - PO 5 mg Q4H PRN Administration PAIN LEVEL 1-5 Oxycodone HCl 10 mg 03/30/19 17:59 04/01/19 20:02 Roxicodone - PO 10 mg Q4H PRN Administration PAIN LEVEL 6-10 Polyethylene Glycol 17 gm 03/30/19 18:01 Miralax (For Daily Use) - PO DAILY PRN CONSTIPATION Last Vital Signs Temp Pulse Resp BP Pulse Ox 98.5 F 78 18 115/68 100 04/02/19 06:00 04/02/19 06:00 04/02/19 06:00 04/02/19 06:00 04/01/19 21:00 General NAD CV S1 S2 RRR no murmur/rub/gallop Lungs CTA B/L no wheezing/rales/rhonchi Abdomen soft NT/ND Extremities LLE diffuse tenderness on movement. leg is cold CBCD WBC 5.7 K/mm3 (4.0-10.0) 04/01/19 06:45 RBC 4.64 M/mm3 (3.60-5.2) 04/01/19 06:45 Hgb 13.5 GM/dL (10.7-15.3) 04/01/19 06:45 Hct 40.3 % (32.4-45.2) 04/01/19 06:45 MCV 86.9 fl (80-96) 04/01/19 06:45 MCHC 33.4 g/dl (32.0-36.0) 04/01/19 06:45 RDW 13.7 % (11.6-15.6) 04/01/19 06:45 Plt Count 334 K/MM3 (134-434) 04/01/19 06:45 MPV 8.6 fl (7.5-11.1) 04/01/19 06:45 CMP Sodium 138 mmol/L (136-145) 04/01/19 06:45 Potassium 4.5 mmol/L (3.5-5.1) 04/01/19 06:45 Chloride 102 mmol/L (98-107) 04/01/19 06:45 Carbon Dioxide 31 mmol/L (21-32) 04/01/19 06:45 Anion Gap 5 MMOL/L (8-16) L 04/01/19 06:45 BUN 12.2 mg/dL (7-18) 04/01/19 06:45 Creatinine 1.0 mg/dL (0.55-1.3) 04/01/19 06:45 Calcium 9.3 mg/dL (8.5-10.1) 04/01/19 06:45 Total Bilirubin 0.4 mg/dL (0.2-1) 04/01/19 06:45 AST 8 U/L (15-37) L 04/01/19 06:45 ALT 19 U/L (13-61) 04/01/19 06:45 Alkaline Phosphatase 83 U/L (45-117) 04/01/19 06:45 Total Protein 7.1 g/dl (6.4-8.2) 04/01/19 06:45 Albumin 3.6 g/dl (3.4-5.0) 04/01/19 06:45 Assessment and PLan 63yo F with PMH HTN, DM, PAD s/p endartectomy and dyslipidemia presented to the ER with cold L foot and found to have L ROSS FURNACE OPERATOR and R SFA. 1. Subacute L ROSS FURNACE OPERATOR and R SFA- plan for surgery on 04/04. no need for anticoagulation at this time. NMST negative with EF 70%. cont with pain control. Vascular surgery on board. 2. DM-uses pump at home. A1c 9.1. on levemir 5 units. titrate to optimize control. bgm and iss. 3. DAMIEN- liekly dehydration. now resolved 4. HTN- controlled. 5. DVT ppx- hep sq Visit type - Emergency Visit Emergency Visit: Yes ED Registration Date: 03/30/19 Care time: The patient presented to the Emergency Department on the above date and was hospitalized for further evaluation of their emergent condition. - New Patient This patient is new to me today: No - Critical Care Critical Care patient: No - Discharge Referral Referred to [facility] No
[2019-04-02] MEDS: LISINOPRIL 10 MG TABLET (FP) PO SCH (10:47)
[2019-04-02] MEDS: HYDROCHLOROTHIAZIDE 25 MG TABLET (FP) PO SCH (10:47)
[2019-04-02] MEDS: DOCUSATE SODIUM 100 MG CAPSULE (FP) PO SCH ×2 (10:47→21:46)
[2019-04-02] MEDS: POLYETHYLENE GLYCOL 3350 119 GM BTL PO PRN (10:52)
[2019-04-02] MEDS ORDERED: INSULIN (NOVOLOG) ASPART 100 UNITS/ML 10ML VIAL ONE ×2 (11:23→21:38)
--- NOTE | 2019-04-02 12:47 | PN ---
Progress Note (short form) - Note Progress Note: s: no cp sob palsp dizzy Current Medications Generic Name Dose Route Start Last Admin Trade Name Freq PRN Reason Stop Dose Admin Acetaminophen 650 mg 03/30/19 18:00 04/01/19 20:02 Tylenol - PO 650 mg Q6H PRN Administration PAIN OR FEVER Atorvastatin Calcium 10 mg 03/31/19 22:00 04/01/19 21:37 Lipitor - PO 10 mg HS KELLEN Administration Docusate Sodium 100 mg 03/30/19 22:00 04/02/19 10:47 Colace - PO 100 mg BID KELLEN Administration Heparin Sodium (Porcine) 5,000 unit 03/30/19 22:00 04/02/19 06:42 Heparin - SQ 5,000 unit TID KELLEN Administration Hydrochlorothiazide 25 mg 03/31/19 10:00 04/02/19 10:47 Hctz - PO 25 mg DAILY KELLEN Administration Insulin Aspart 1 vial 03/30/19 22:00 04/02/19 11:32 Novolog Vial Sliding Scale - SQ 8 units ACHS KELLEN Administration Protocol Insulin Detemir 5 units 04/02/19 07:00 04/02/19 06:48 Levemir Vial SQ 5 units AM KELLEN Administration Lisinopril 30 mg 03/31/19 10:00 04/02/19 10:47 Prinivil PO 30 mg DAILY KELLEN Administration Morphine Sulfate 2 mg 03/30/19 18:02 04/02/19 06:46 Morphine Sulfate IVPUSH 2 mg Q4H PRN Administration PAIN LEVEL 7 - 10 Non-Formulary Medication 145 mcg 03/31/19 10:00 Linaclotide [Linzess] PO DAILY KELLEN Oxycodone HCl 5 mg 03/30/19 17:59 03/31/19 12:13 Roxicodone - PO 5 mg Q4H PRN Administration PAIN LEVEL 1-5 Oxycodone HCl 10 mg 03/30/19 17:59 04/01/19 20:02 Roxicodone - PO 10 mg Q4H PRN Administration PAIN LEVEL 6-10 Polyethylene Glycol 17 gm 03/30/19 18:01 04/02/19 10:52 Miralax (For Daily Use) - PO 17 gm DAILY PRN Administration CONSTIPATION - Objective Vital Signs: Vital Signs Period Temp Pulse Resp BP Sys/Mendoza Pulse Ox Last 24 Hr 98.0 F-98.5 F 71-94 18-20 105-143/48-82 100 Constitutional: Yes: No Distress, Calm Eyes: Yes: Conjunctiva Clear Cardiovascular: Yes: Regular Rate and Rhythm Respiratory: Yes: CTA Bilaterally Gastrointestinal: Yes: Soft Edema: No Neurological: Yes: Alert, Oriented no jaundice diaphoresis Labs: CBC, BMP 04/01/19 06:45 04/01/19 06:45 - ....Imaging EKG: Image Reviewed Other: Other (LEXISCAN Stress: no ischemia, normalEF, no TID) Assessment/Plan DATA: EKG sinus, nl intervals, lateral TWI stable compared to prior CTA: narrow, thrombus filled distal aorta. Occlusion of the left CAMPUS SAFETY OFFICER at site of prior endarterectomy with patent SFA, DFA, popliteal and tibial arteries Right SFA occluded with reconstitution of popliteal artery IMP/REC: 1. Preop evaluation, PAD: - plan for open surgery and placement of aortic covered stent - not on heparin gtt per vascular as this is subacute - patient is asymptomatic however limited functional status - nuclear stress test here showed no ischemia, normal LVEF and no evidence TID. -There are no cardiac contraindications to vascular surgery: she does not have anginal sx, she is euvolemic and no aortic stenosis. She is in NSR with normal LVEF. Blood pressure is well overall well controlled. -Would continue statin and Lisinopril -Pt should take Lisinopril AM of surgery with small sip of water
[2019-04-02] MEDS: ACETAMINOPHEN 325 MG TABLET (FP) PO PRN (19:38)
[2019-04-02] MEDS: oxyCODONE HCL 5 MG TABLET PO PRN (19:38)
[2019-04-02] MEDS: ATORVASTATIN CA 10 MG TABLET (FP) PO SCH (21:47)
[2019-04-03] MEDS: HEPARIN NA (PORCINE) 5,000 UNITS/ML 1ML VIAL SQ SCH ×3 (05:51→22:48)
[2019-04-03] MEDS: INSULIN SLIDING SCALE (NOVOLOG) 1 VIAL SQ SCH ×4 (06:02→22:48)
[2019-04-03] MEDS: INSULIN (LEVEMIR) 100 UNITS/ML UNITS SQ SCH (06:03)
[2019-04-03] MEDS ORDERED: INSULIN (NOVOLOG) ASPART 100 UNITS/ML 10ML VIAL ONE (06:33)
[2019-04-03] MEDS ORDERED: INSULIN (LEVEMIR) 100 UNITS/ML UNITS SQ ONE (06:34)
[2019-04-03] MEDS: oxyCODONE HCL 5 MG TABLET PO PRN ×3 (06:36→22:48)
[2019-04-03] MEDS: ACETAMINOPHEN 325 MG TABLET (FP) PO PRN (06:37)
[2019-04-03] MEDS: LISINOPRIL 10 MG TABLET (FP) PO SCH (09:31)
[2019-04-03] MEDS: DOCUSATE SODIUM 100 MG CAPSULE (FP) PO SCH ×2 (09:31→22:48)
[2019-04-03] MEDS: HYDROCHLOROTHIAZIDE 25 MG TABLET (FP) PO SCH (09:33)
[2019-04-03] MEDS: POLYETHYLENE GLYCOL 3350 119 GM BTL PO PRN (09:36)
--- NOTE | 2019-04-03 12:03 | PN ---
Physical Exam: SUBJECTIVE: Patient seen and examined this AM. No new complaints, no acute overnight events. Pain controlled. Denies any fevers, chills, chest pain, SOB, nausea, vomiting, diarrhea, constipation. OBJECTIVE: Vital Signs Period Temp Pulse Resp BP Sys/Mendoza Pulse Ox Last 24 Hr 97.8 F-98.5 F 64-76 16-20 105-128/48-70 97-99 GENERAL: A&Ox3, NAD HEAD: NCAT EYES: PERRL, EOMI ENT: moist mucous membranes NECK: Supple LUNGS: clear to auscultation bilaterally, no wheezes, no crackles HEART: Regular rate and rhythm, S1, S2 without murmur ABDOMEN: Soft, nontender, nondistended, + bowel sounds, no guarding EXTREMITIES: No edema. Left alley tender to palpation, LLE Cold, Pain with Left foot ROM testing NEUROLOGICAL: Cranial nerves II through XII grossly intact. Normal speech. SKIN: Warm, dry Laboratory Last Values WBC 5.7 K/mm3 (4.0-10.0) 04/01/19 06:45 RBC 4.64 M/mm3 (3.60-5.2) 04/01/19 06:45 Hgb 13.5 GM/dL (10.7-15.3) 04/01/19 06:45 Hct 40.3 % (32.4-45.2) 04/01/19 06:45 MCV 86.9 fl (80-96) 04/01/19 06:45 MCH 29.0 pg (25.7-33.7) 04/01/19 06:45 MCHC 33.4 g/dl (32.0-36.0) 04/01/19 06:45 RDW 13.7 % (11.6-15.6) 04/01/19 06:45 Plt Count 334 K/MM3 (134-434) 04/01/19 06:45 MPV 8.6 fl (7.5-11.1) 04/01/19 06:45 Absolute Neuts (auto) 3.0 K/mm3 (1.5-8.0) 04/01/19 06:45 Neutrophils % 52.3 % (42.8-82.8) 04/01/19 06:45 Lymphocytes % 35.9 % (8-40) 04/01/19 06:45 Monocytes % 8.1 % (3.8-10.2) 04/01/19 06:45 Eosinophils % 2.5 % (0-4.5) 04/01/19 06:45 Basophils % 1.2 % (0-2.0) 04/01/19 06:45 Nucleated RBC % 0 % (0-0) 04/01/19 06:45 PT with INR 9.60 SEC (9.7-13.0) L 03/30/19 14:32 INR 0.82 (0.83-1.09) L 03/30/19 14:32 PTT (Actin FS) 29.3 SECONDS (25.2-36.5) 03/30/19 14:32 Sodium 138 mmol/L (136-145) 04/01/19 06:45 Potassium 4.5 mmol/L (3.5-5.1) 04/01/19 06:45 Chloride 102 mmol/L (98-107) 04/01/19 06:45 Carbon Dioxide 31 mmol/L (21-32) 04/01/19 06:45 Anion Gap 5 MMOL/L (8-16) L 04/01/19 06:45 BUN 12.2 mg/dL (7-18) 04/01/19 06:45 Creatinine 1.0 mg/dL (0.55-1.3) 04/01/19 06:45 Est GFR (CKD-EPI)AfAm 69.92 04/01/19 06:45 Est GFR (CKD-EPI)NonAf 60.33 04/01/19 06:45 POC Glucometer 230 UNITS (80-120) 04/01/19 06:22 Random Glucose 229 mg/dL (74-106) H 04/01/19 06:45 Hemoglobin A1c % 9.1 % (4.2-6.3) H 04/01/19 06:45 Calcium 9.3 mg/dL (8.5-10.1) 04/01/19 06:45 Total Bilirubin 0.4 mg/dL (0.2-1) 04/01/19 06:45 AST 8 U/L (15-37) L 04/01/19 06:45 ALT 19 U/L (13-61) 04/01/19 06:45 Alkaline Phosphatase 83 U/L (45-117) 04/01/19 06:45 Total Protein 7.1 g/dl (6.4-8.2) 04/01/19 06:45 Albumin 3.6 g/dl (3.4-5.0) 04/01/19 06:45 Blood Type A NEGATIVE 03/30/19 14:32 Antibody Screen Negative 03/30/19 14:32 Active Medications Acetaminophen (Tylenol -) 650 mg PO Q6H PRN PRN Reason: PAIN OR FEVER Last Admin: 04/03/19 06:37 Dose: 650 mg Atorvastatin Calcium (Lipitor -) 10 mg PO HS [facility] Last Admin: 04/02/19 21:47 Dose: 10 mg Docusate Sodium (Colace -) 100 mg PO BID [facility] Last Admin: 04/03/19 09:31 Dose: 100 mg Heparin Sodium (Porcine) (Heparin -) 5,000 unit SQ TID [facility] Last Admin: 04/03/19 05:51 Dose: 5,000 unit Hydrochlorothiazide (Hctz -) 25 mg PO DAILY [facility] Last Admin: 04/03/19 09:33 Dose: 25 mg Insulin Aspart (Novolog Vial Sliding Scale -) 1 vial SQ ACHS [facility]; Protocol Last Admin: 04/03/19 10:51 Dose: 8 units Insulin Detemir (Levemir Vial) 5 units SQ AM [facility] Last Admin: 04/03/19 06:03 Dose: 5 units Lisinopril (Prinivil) 30 mg PO DAILY [facility] Last Admin: 04/03/19 09:31 Dose: 30 mg Morphine Sulfate (Morphine Sulfate) 2 mg IVPUSH Q4H PRN PRN Reason: PAIN LEVEL 7 - 10 Last Admin: 04/02/19 06:46 Dose: 2 mg Non-Formulary Medication (Linaclotide [Linzess]) 145 mcg PO DAILY [facility] Oxycodone HCl (Roxicodone -) 5 mg PO Q4H PRN PRN Reason: PAIN LEVEL 1-5 Last Admin: 03/31/19 12:13 Dose: 5 mg Oxycodone HCl (Roxicodone -) 10 mg PO Q4H PRN PRN Reason: PAIN LEVEL 6-10 Last Admin: 04/03/19 06:36 Dose: 10 mg Polyethylene Glycol (Miralax (For Daily Use) -) 17 gm PO DAILY PRN PRN Reason: CONSTIPATION Last Admin: 04/03/19 09:36 Dose: 17 gm IMAGING: -CXR: No evidence of active pulmonary disease -CT A/P and B/L LE Angiogram: Extensive infrarenal aortic atherosclerotic disease resulting in stenosis up to 70-90% with a focal/short segment dissection versus ulcerated plaque. Extensive bilateral iliofemoral atherosclerotic disease with: 70-90% stenosis in the distal right EIA/proximal COPPER PLATE PRINTER, occlusion of the right SFA with reconstitution of flow in the right popliteal artery which demonstrates less than 50% stenosis and patent three- vessel infrapopliteal runoff. 50-70% stenosis in the left EIA followed by occlusion of the left COPPER PLATE PRINTER and reconstitution of flow in the left DFA and SFA which demonstrates high-grade stenosis at the origin. Widely patent left popliteal and infrapopliteal arteries with three-vessel runoff noted. Marked thickening of the adrenal glands likely due to hyperplasia. Further characterization with MRI may be obtained as clinically warranted. 1.5 cm left upper renal pole cyst. Likely right adnexal hydrosalpinx. Correlate with ultrasound and/or MRI on a nonemergent basis. -Lexiscan: No diagnostic ischemic ST changes during Regadenoson infusion. No significant changes from the baseline nonspecific ST segments. No arrhythmias. Normal myocardial perfusion. No evidence of transient ischemic dilatation. LVEF : 70% with normal wall motion. -EKG: NSR, VR 70, QTc 449 ASSESSMENT/PLAN: 63 y/o F with PMHx of IDDM (on insulin pump), HTN, PAD (s/p endartectomy) presented with Cold LLE, found to have occlusion of the left COPPER PLATE PRINTER and right SFA, for OR on 04/04. #Subacute occlusion of the left COPPER PLATE PRINTER and right SFA, -Imaging + Stress test note above, for OR on 04/04 -Pain control via Acetaminophen, Morphine, Oxycodone -Cardiology (Dr. Laura), Vascular sx (Dr. Mena) consulted, Appreciate Rec's #IDDM -A1c 9.1; Patient says much improved from prior -Insulin pump, ISS, BGMs ACHS -Detemir 5u AM #HTN, Controlled -Home dose Lisinopril, HCTZ -Should take Lisinopril AM of surgery #HLD -Home dose statin #FEN -No Standing Fluids -Replete Lytes PRN -Diabetic/Na controlled diet; NPO after midnight #PPx -DVT: Heparin Dispo: For OR on 04/04 Visit type - Emergency Visit Emergency Visit: Yes ED Registration Date: 03/30/19 Care time: The patient presented to the Emergency Department on the above date and was hospitalized for further evaluation of their emergent condition. - New Patient This patient is new to me today: No - Critical Care Critical Care patient: No ATTENDING PHYSICIAN STATEMENT I saw and evaluated the patient. I reviewed the resident's note and discussed the case with the resident. I agree with the resident's findings and plan as documented. SUBJECTIVE: OBJECTIVE: ASSESSMENT AND PLAN:
--- NOTE | 2019-04-03 12:48 | PN ---
Progress Note (short form) - Note Progress Note: s: no cp sob palsp dizzy Current Medications Generic Name Dose Route Start Last Admin Trade Name Freq PRN Reason Stop Dose Admin Acetaminophen 650 mg 03/30/19 18:00 04/03/19 06:37 Tylenol - PO 650 mg Q6H PRN Administration PAIN OR FEVER Atorvastatin Calcium 10 mg 03/31/19 22:00 04/02/19 21:47 Lipitor - PO 10 mg HS KELLEN Administration Docusate Sodium 100 mg 03/30/19 22:00 04/03/19 09:31 Colace - PO 100 mg BID KELLEN Administration Heparin Sodium (Porcine) 5,000 unit 03/30/19 22:00 04/03/19 05:51 Heparin - SQ 5,000 unit TID KELLEN Administration Hydrochlorothiazide 25 mg 03/31/19 10:00 04/03/19 09:33 Hctz - PO 25 mg DAILY KELLEN Administration Insulin Aspart 1 vial 03/30/19 22:00 04/03/19 10:51 Novolog Vial Sliding Scale - SQ 8 units ACHS KELLEN Administration Protocol Insulin Detemir 5 units 04/02/19 07:00 04/03/19 06:03 Levemir Vial SQ 5 units AM KELLEN Administration Lisinopril 30 mg 03/31/19 10:00 04/03/19 09:31 Prinivil PO 30 mg DAILY KELLEN Administration Morphine Sulfate 2 mg 03/30/19 18:02 04/02/19 06:46 Morphine Sulfate IVPUSH 2 mg Q4H PRN Administration PAIN LEVEL 7 - 10 Non-Formulary Medication 145 mcg 03/31/19 10:00 Linaclotide [Linzess] PO DAILY KELLEN Oxycodone HCl 5 mg 03/30/19 17:59 03/31/19 12:13 Roxicodone - PO 5 mg Q4H PRN Administration PAIN LEVEL 1-5 Oxycodone HCl 10 mg 03/30/19 17:59 04/03/19 06:36 Roxicodone - PO 10 mg Q4H PRN Administration PAIN LEVEL 6-10 Polyethylene Glycol 17 gm 03/30/19 18:01 04/03/19 09:36 Miralax (For Daily Use) - PO 17 gm DAILY PRN Administration CONSTIPATION - Objective Vital Signs: Vital Signs Period Temp Pulse Resp BP Sys/Mendoza Pulse Ox Last 24 Hr 97.8 F-98.5 F 64-76 16-20 105-128/48-70 97-99 Constitutional: Yes: No Distress, Calm Eyes: Yes: Conjunctiva Clear Cardiovascular: Yes: Regular Rate and Rhythm Respiratory: Yes: CTA Bilaterally Gastrointestinal: Yes: Soft Edema: No Neurological: Yes: Alert, Oriented no jaundice diaphoresis Labs: CBC, BMP 04/01/19 06:45 04/01/19 06:45 - ....Imaging EKG: Image Reviewed Other: Other (LEXISCAN Stress: no ischemia, normalEF, no TID) Assessment/Plan DATA: EKG sinus, nl intervals, lateral TWI stable compared to prior CTA: narrow, thrombus filled distal aorta. Occlusion of the left TAX COMPLIANCE MANAGER at site of prior endarterectomy with patent SFA, DFA, popliteal and tibial arteries Right SFA occluded with reconstitution of popliteal artery IMP/REC: 1. Preop evaluation, PAD: - plan for open surgery and placement of aortic covered stent - not on heparin gtt per vascular as this is subacute - patient is asymptomatic however limited functional status - nuclear stress test here showed no ischemia, normal LVEF and no evidence TID. -There are no cardiac contraindications to vascular surgery: she does not have anginal sx, she is euvolemic and no aortic stenosis. She is in NSR with normal LVEF. Blood pressure is well overall well controlled. -Would continue statin and Lisinopril -Pt should take Lisinopril AM of surgery with small sip of water
--- NOTE | 2019-04-03 13:31 | PN ---
Teaching Attending Note Name of Resident: mEa Olson ATTENDING PHYSICIAN STATEMENT I saw and evaluated the patient. I reviewed the resident's note and discussed the case with the resident. I agree with the resident's findings and plan as documented. SUBJECTIVE:states the leg is now just numb, no longer experiencing pain. denies CP, SOB, fever, chills, N/V/CD OBJECTIVE: Last Vital Signs Temp Pulse Resp BP Pulse Ox 97.8 F 70 16 118/63 99 04/03/19 10:04/03/19 10:04/03/19 10:04/03/19 10:04/03/19 09:00 General NAD Extremities L leg is cool, no tenderness unable to palpate pulses ASSESSMENT AND PLAN: 63yo F with PMH HTN, DM, PAD s/p endartectomy and dyslipidemia presented to the ER with cold L foot and found to have L APPLICATION ANALYST and R SFA. 1. Subacute L APPLICATION ANALYST and R SFA- plan for surgery on 04/04. no need for anticoagulation at this time. NMST negative with EF 70%. cont with pain control. Vascular surgery on board. 2. DM-uses pump at home. A1c 9.1. on levemir 5 units. titrate to optimize control. bgm and iss. 3. DAMIEN- liekly dehydration. now resolved 4. HTN- controlled. 5. DVT ppx- hep sq 6. spoke with present at bedside. all questions answered. brought up need for PT assessment after surgery and eval for LEANDRA
[2019-04-03] MEDS: ATORVASTATIN CA 10 MG TABLET (FP) PO SCH (22:49)
[2019-04-04] MEDS: INSULIN (LEVEMIR) 100 UNITS/ML UNITS SQ SCH (06:02)
[2019-04-04] MEDS: INSULIN SLIDING SCALE (NOVOLOG) 1 VIAL SQ SCH ×4 (06:02→22:16)
[2019-04-04] MEDS ORDERED: fentaNYL CITRATE 250 MCG/5 ML VIAL ONE (09:46)
[2019-04-04] MEDS ORDERED: ROCURONIUM BROMIDE 50 MG/5 ML SYRINGE ONE (09:46)
[2019-04-04] MEDS ORDERED: MIDAZOLAM HCL 2 MG/2 ML SINGLE DOSE VIAL ONE ×2 (09:46→16:58)
[2019-04-04] MEDS ORDERED: PROPOFOL 20 ML ONE (09:46)
[2019-04-04] MEDS: HYDROCHLOROTHIAZIDE 25 MG TABLET (FP) PO SCH (09:54)
[2019-04-04] MEDS: LISINOPRIL 10 MG TABLET (FP) PO SCH (09:54)
[2019-04-04] MEDS: DOCUSATE SODIUM 100 MG CAPSULE (FP) PO SCH ×2 (09:55→21:49)
[2019-04-04] MEDS ORDERED: CEFAZOLIN 2 GM in DEXTROSE 5%-WATER - 100 ML IVPB ONE (12:57)
[2019-04-04] MEDS ORDERED: PROTAMINE SULFATE 50 MG/5 ML VIAL ONE (13:18)
[2019-04-04] MEDS ORDERED: PHENYLEPHRINE HCL 10 MG/1 ML SINGLE DOSE VIAL ONE ×2 (13:23)
[2019-04-04] MEDS ORDERED: ceFAZolin SODIUM 1 GM VIAL IVPB ONE (13:40)
[2019-04-04] MEDS ORDERED: ceFAZolin SODIUM 1 GM VIAL ONE ×2 (13:41→16:52)
[2019-04-04] MEDS ORDERED: HYDROmorphone HCl 2 MG/ML VIAL ONE (13:52)
--- NOTE | 2019-04-04 13:53 | PN ---
Physical Exam: SUBJECTIVE: Patient seen and examined at bedside. Continues to have LLE pain. OR today for left femora; emdarterectomy. OBJECTIVE: Vital Signs Period Temp Pulse Resp BP Sys/Mendoza Pulse Ox Last 24 Hr 97.7 F-98.0 F 66-74 18-18 120-125/73-80 98-99 GENERAL: The patient is awake, alert, and fully oriented, in no acute distress. HEAD: Normal with no signs of trauma. LUNGS: Breath sounds equal, clear to auscultation bilaterally, no wheezes, no crackles, no accessory muscle use. HEART: Regular rate and rhythm, S1, S2 without murmur, rub or gallop. ABDOMEN: Soft, nontender, nondistended, normoactive bowel sounds EXTREMITIES: LLE cool to touch w/ diminished pulses; RLE 2+ pulses. No edema noted in b/l LE / UE SKIN: Warm, dry, no rashes noted. Laboratory Results - last 24 hr Laboratory Last Values WBC 5.7 K/mm3 (4.0-10.0) 04/01/19 06:45 RBC 4.64 M/mm3 (3.60-5.2) 04/01/19 06:45 Hgb 13.5 GM/dL (10.7-15.3) 04/01/19 06:45 Hct 40.3 % (32.4-45.2) 04/01/19 06:45 MCV 86.9 fl (80-96) 04/01/19 06:45 MCH 29.0 pg (25.7-33.7) 04/01/19 06:45 MCHC 33.4 g/dl (32.0-36.0) 04/01/19 06:45 RDW 13.7 % (11.6-15.6) 04/01/19 06:45 Plt Count 334 K/MM3 (134-434) 04/01/19 06:45 MPV 8.6 fl (7.5-11.1) 04/01/19 06:45 Absolute Neuts (auto) 3.0 K/mm3 (1.5-8.0) 04/01/19 06:45 Neutrophils % 52.3 % (42.8-82.8) 04/01/19 06:45 Lymphocytes % 35.9 % (8-40) 04/01/19 06:45 Monocytes % 8.1 % (3.8-10.2) 04/01/19 06:45 Eosinophils % 2.5 % (0-4.5) 04/01/19 06:45 Basophils % 1.2 % (0-2.0) 04/01/19 06:45 Nucleated RBC % 0 % (0-0) 04/01/19 06:45 PT with INR 9.60 SEC (9.7-13.0) L 03/30/19 14:32 INR 0.82 (0.83-1.09) L 03/30/19 14:32 PTT (Actin FS) 29.3 SECONDS (25.2-36.5) 03/30/19 14:32 Sodium 138 mmol/L (136-145) 04/01/19 06:45 Potassium 4.5 mmol/L (3.5-5.1) 04/01/19 06:45 Chloride 102 mmol/L (98-107) 04/01/19 06:45 Carbon Dioxide 31 mmol/L (21-32) 04/01/19 06:45 Anion Gap 5 MMOL/L (8-16) L 04/01/19 06:45 BUN 12.2 mg/dL (7-18) 04/01/19 06:45 Creatinine 1.0 mg/dL (0.55-1.3) 04/01/19 06:45 Est GFR (CKD-EPI)AfAm 69.92 04/01/19 06:45 Est GFR (CKD-EPI)NonAf 60.33 04/01/19 06:45 POC Glucometer 244 UNITS (80-120) 04/04/19 11:35 Random Glucose 229 mg/dL (74-106) H 04/01/19 06:45 Hemoglobin A1c % 9.1 % (4.2-6.3) H 04/01/19 06:45 Calcium 9.3 mg/dL (8.5-10.1) 04/01/19 06:45 Total Bilirubin 0.4 mg/dL (0.2-1) 04/01/19 06:45 AST 8 U/L (15-37) L 04/01/19 06:45 ALT 19 U/L (13-61) 04/01/19 06:45 Alkaline Phosphatase 83 U/L (45-117) 04/01/19 06:45 Total Protein 7.1 g/dl (6.4-8.2) 04/01/19 06:45 Albumin 3.6 g/dl (3.4-5.0) 04/01/19 06:45 Blood Type A NEGATIVE 04/04/19 06:56 Antibody Screen Negative 04/04/19 06:56 Crossmatch See Detail 04/04/19 06:56 Active Medications Generic Name Dose Route Start Last Admin Trade Name Freq PRN Reason Stop Dose Admin Acetaminophen 650 mg 03/30/19 18:00 04/03/19 06:37 Tylenol - PO 650 mg Q6H PRN Administration PAIN OR FEVER Atorvastatin Calcium 10 mg 03/31/19 22:00 04/03/19 22:49 Lipitor - PO 10 mg HS [facility] Administration Docusate Sodium 100 mg 03/30/19 22:00 04/04/19 09:55 Colace - PO 100 mg BID [facility] Administration Heparin Sodium (Porcine) 5,000 unit 03/30/19 22:00 04/03/19 22:48 Heparin - SQ 5,000 unit TID [facility] Administration Hydrochlorothiazide 25 mg 03/31/19 10:00 04/04/19 09:54 Hctz - PO 25 mg DAILY [facility] Administration Insulin Aspart 1 vial 03/30/19 22:00 04/04/19 11:37 Novolog Vial Sliding Scale - SQ Not Given ACHS [facility] Protocol Insulin Detemir 5 units 04/02/19 07:00 04/04/19 06:02 Levemir Vial SQ Not Given AM [facility] Lisinopril 30 mg 03/31/19 10:00 04/04/19 09:54 Prinivil PO 30 mg DAILY [facility] Administration Non-Formulary Medication 145 mcg 03/31/19 10:00 Linaclotide [Linzess] PO DAILY [facility] Polyethylene Glycol 17 gm 03/30/19 18:01 04/03/19 09:36 Miralax (For Daily Use) - PO 17 gm DAILY PRN Administration CONSTIPATION ASSESSMENT/PLAN: 63 y/o/ F PMH ODD< on insulin pump, HTN, PAD sp endarterectomy, found to have left HORTICULTURAL SPECIALTY GROWER & right SFA occlusion on LE CTA. #Left HORTICULTURAL SPECIALTY GROWER/ right SFA aterial occlusion -Scheduled for OR today for left femoral endarterctomy with aortic graft placement -Stress test shows no ischemia, normal LVEF, no TID -Lisinopril PO given this morning -Cardiology, vascular surgery on board -Pain control PRN #DM -On insulin pump -HbA1c 9.1 -ISS -BGM -Levemir 5 SQ/ daily #HTN -Lisinopril 30mg PO daily -HCTX #HLD -Atorvastatin 10mg PO daily #FEN -No fluids -Replete lytes as needed -Diabetic sodium controlled diet; NPO this morning pre-procedure #DVT PPX -Heparin SQ #Dispo: -OR today Visit type - Emergency Visit Emergency Visit: No - New Patient This patient is new to me today: No - Critical Care Critical Care patient: No ATTENDING PHYSICIAN STATEMENT I saw and evaluated the patient. I reviewed the resident's note and discussed the case with the resident. I agree with the resident's findings and plan as documented. SUBJECTIVE: OBJECTIVE: ASSESSMENT AND PLAN:
[2019-04-04] MEDS ORDERED: HEPARIN NA (PORCINE) 5,000 UNITS/ML 1ML VIAL ONE (14:17)
--- NOTE | 2019-04-04 15:52 | PN ---
Teaching Attending Note Name of Resident: Nella King ATTENDING PHYSICIAN STATEMENT I saw and evaluated the patient. I reviewed the resident's note and discussed the case with the resident. I agree with the resident's findings and plan as documented. SUBJECTIVE:denies cp, sob,fever, chills, N/V/C/D. states leg is just numb OBJECTIVE: Last Vital Signs Temp Pulse Resp BP Pulse Ox 97.7 F 74 18 120/80 99 04/04/19 10:00 04/04/19 10:00 04/04/19 10:00 04/04/19 10:00 04/04/19 09:00 General NAD CV S1 S2 RRR no murmur/rub/gallop Lungs CTA B/L no wheezing/rale/rhonchi Extremities L leg is cool, no tenderness unable to palpate pulses ASSESSMENT AND PLAN: 63yo F with PMH HTN, DM, PAD s/p endartectomy and dyslipidemia presented to the ER with cold L foot and found to have L ELECTRIC METER TECHNICIAN and R SFA. 1. Subacute L ELECTRIC METER TECHNICIAN and R SFA-NPO for surgery today.L femoral endartecetomy with aortic graft placement. pt is intermediate risk for intermediate procedure. no need for anticoagulation at this time. NMST negative with EF 70%. cont with pain control. Vascular surgery on board. 2. DM-uses pump at home. A1c 9.1. on levemir 5 units. titrate to optimize control. bgm and iss. 3. DAMIEN- liekly dehydration. now resolved 4. HTN- controlled. 5. DVT ppx- hep sq 6. spoke with present at bedside. all questions answered. brought up need for PT assessment after surgery and eval for LEANDRA
[2019-04-04] MEDS ORDERED: DEXAMETHASONE SOD PHOSPHATE 4 MG/1 ML VIAL ONE (15:54)
[2019-04-04] MEDS ORDERED: LABETALOL HCL 5 MG/1 ML (100MG/20 ML VIAL) ONE (16:52)
--- NOTE | 2019-04-04 17:13 | OP ---
Operative Note - Note: Operative Date: 04/04/19 Pre-Operative Diagnosis: Ischemic left leg, aortic atherosclerosis Operation: Left femoral endarterectomy. Placement covered stent graft aorta Findings: Diffuse atherosclerosis of aorta Occlusion left femoral artery with plaque and thrombus Implants: 11 mm x 79 cm VBX stent graft. Thin wall Dacron patch Post-Operative Diagnosis: Same as Pre-op Surgeon: Viral Mena Manager Career: Ana Rosa Pfeiffer Anesthesiologist/UNIX ANALYST: Fredy Story Anesthesia: General Specimens Removed: Left femoral plaque Estimated Blood Loss (mls): 200
[2019-04-04] MEDS ORDERED: SODIUM CHLORIDE 0.45% 1,000 ML IV SCH (17:15)
[2019-04-04] MEDS ORDERED: PROMETHAZINE HCL 25 MG/1 ML VIAL IVPUSH PRN (17:29)
[2019-04-04] MEDS ORDERED: ONDANSETRON 4 MG/2 ML VIAL IVPUSH PRN (17:29)
--- NOTE | 2019-04-04 19:50 | SURG ---
Surgery Bakery Manager Note Bakery Manager: Ana Rosa Pfeiffer PA-C Date of Service: 04/04/19 Diagnosis: Ischemic left leg, aortic atherosclerosis Procedure: Left femoral endarterectomy. Placement covered stent graft aorta I was present for the entirety of the operative procedure. For further detail, please refer to operative report. Visit type - Case Type Case Type: ED Admission - Emergency Emergency Visit: Yes ED Registration Date: 03/30/19 Care time: The patient presented to the Emergency Department on the above date and was hospitalized for further evaluation of their emergent condition. - New patient This patient is new to me today: Yes Date on this admission: 04/04/19
[2019-04-04] MEDS: ATORVASTATIN CA 10 MG TABLET (FP) PO SCH (21:49)
[2019-04-04] MEDS: ACETAMINOPHEN 325 MG TABLET (FP) PO PRN (21:49)
[2019-04-04] MEDS: HEPARIN NA (PORCINE) 5,000 UNITS/ML 1ML VIAL SQ SCH (21:51)
[2019-04-04] MEDS ORDERED: INSULIN (NOVOLOG) ASPART 100 UNITS/ML 10ML VIAL ONE (23:12)
[2019-04-05] MEDS ORDERED: oxyCODONE HCL 5 MG TABLET PO ONE (01:12)
[2019-04-05] MEDS ORDERED: oxyCODONE HCL 5 MG TABLET PO PRN (01:13)
[2019-04-05] MEDS ORDERED: DEXTROSE 5%-WATER - 50 ML IVPB ONE ×2 (01:32→06:27)
[2019-04-05] MEDS ORDERED: ceFAZolin SODIUM 1 GM VIAL ONE ×2 (01:32→06:27)
[2019-04-05] MEDS: CEFAZOLIN 1 GM in DEXTROSE 5%-WATER - 50 ML IVPB SCH ×2 (01:54→06:32)
[2019-04-05] MEDS: HEPARIN NA (PORCINE) 5,000 UNITS/ML 1ML VIAL SQ SCH ×3 (06:32→21:11)
[2019-04-05] MEDS: INSULIN SLIDING SCALE (NOVOLOG) 1 VIAL SQ SCH ×4 (06:39→21:19)
[2019-04-05 07:53] LABS: BASO % 0.5 % (0-2.0); EOS % 0.1 % (0-4.5); HEMATOCRIT 35.9 % (32.4-45.2); LYMPH % 11.3 % (8-40); MCH 29.5 pg (25.7-33.7); MCHC 33.5 g/dl (32.0-36.0); MEAN CELL VOLUME 88.2 fl (80-96); MEAN PLT VOLUME 8.3 fl (7.5-11.1); MONO % 6.5 % (3.8-10.2); NEUT % 81.6 % (42.8-82.8); RBC 4.07 M/mm3 (3.60-5.2); RDW 14.3 % (11.6-15.6)
[2019-04-05 08:43] LABS: BLOOD UREA NITROGEN 21.9 mg/dL (7-18); CALCIUM 8.6 mg/dL (8.5-10.1); CREATININE 1.9 mg/dL (0.55-1.3); POTASSIUM 4.5 mmol/L (3.5-5.1)
[2019-04-05 09:31] LABS: PLATELET COUNT 262 K/MM3 (134-434)
[2019-04-05] MEDS ORDERED: ACETAMINOPHEN 325 MG TABLET (FP) PO PRN (09:32)
[2019-04-05] MEDS ORDERED: REGADENOSON 0.4 MG/5 ML PRE-FILLED SYRINGE IVPUSH ONE (09:32)
[2019-04-05] MEDS ORDERED: POLYETHYLENE GLYCOL 3350 119 GM BTL PO PRN (09:32)
[2019-04-05] MEDS ORDERED: HYDROCHLOROTHIAZIDE 25 MG TABLET (FP) PO SCH (10:00)
[2019-04-05] MEDS ORDERED: LISINOPRIL 10 MG TABLET (FP) PO SCH (10:00)
[2019-04-05] MEDS ORDERED: PATIENT'S OWN MEDICATION (NON-FORMULARY) (Linaclotide [Linzess] 145 MCG) PO SCH (10:00)
[2019-04-05] MEDS: ASPIRIN 81 MG CHEWABLE TABLETS PO SCH ×2 (10:01→10:19)
[2019-04-05] MEDS: DOCUSATE SODIUM 100 MG CAPSULE (FP) PO SCH ×2 (10:12→21:12)
[2019-04-05] MEDS: CLOPIDOGREL BISULFATE 75 MG TABLET (FP) PO SCH (10:12)
[2019-04-05] MEDS: INSULIN (LEVEMIR) 100 UNITS/ML UNITS SQ SCH (10:14)
[2019-04-05] MEDS: PATIENT'S OWN MEDICATION (NON-FORMULARY) (Linaclotide [Linzess] 145 MCG) PO SCH ×2 (10:20→15:53)
[2019-04-05] MEDS: oxyCODONE HCL 5 MG TABLET PO PRN ×3 (12:07→21:12)
[2019-04-05] MEDS ORDERED: INSULIN (LEVEMIR) 100 UNITS/ML UNITS SQ ONE (12:17)
[2019-04-05] MEDS ORDERED: INSULIN (NOVOLOG) ASPART 100 UNITS/ML 10ML VIAL ONE ×3 (12:17→21:02)
--- NOTE | 2019-04-05 12:58 | SPA.POSTOP ---
- POST-OP NOTE POD #1 s/p Left femoral endarterectomy. Placement covered stent graft aorta Patient resting comfortably. Pain management via prn meds. Denies n/v/f/c, CP or SOB. She had nausea over the night, no nausea now. Last Vital Signs Temp Pulse Resp BP Pulse Ox 98.9 F 93 H 20 114/66 96 04/05/19 06:00 04/05/19 06:00 04/05/19 06:00 04/05/19 06:00 04/04/19 21:00 Physical Exam General: No acute distress. Pulm: Clear to auscultation bilat anteriorly Cor: Regular rhythm Abd: Soft. Non-tender. No distention LE: Soft, non-tender bilat. LLE with palpable PT, warm to touch. Unable to move foot. Left groin clean and dry with surgical dressing. RLE: +2 DP pulse, warm to touch. 5/5 dorsi/plantar flexion. Right groin dressing clean and dry. CBC, BMP 04/05/19 06:20 04/05/19 06:20 A/p: 63 yo female s/p Left femoral endarterectomy. Placement covered stent graft aorta. Advance diet today, Continue IV fluids BUn/cret elevated today. CBC/chem in the am. Heparin SQ DVT ppx with plavix, aspirin OOB to chair, Physical therpay. Pt has known LLE motor disfunction. Discontinue ponce catheter D/w John Mena
[2019-04-05] MEDS ORDERED: SODIUM CHLORIDE 0.45% 1,000 ML IV SCH ×2 (13:23→16:36)
--- NOTE | 2019-04-05 13:57 | PN ---
Physical Exam: SUBJECTIVE: Patient seen and examined at bedside. Post-op day #1 for left femoral endarterectomy with aortic graft placement. Pt feeling well. C/o numbness to LLE, unchanged from pre-procedure. OBJECTIVE: Vital Signs Period Temp Pulse Resp BP Sys/Mendoza Pulse Ox Last 24 Hr 97.8 F-98.9 F 71-93 12-20 110-151/48-74 95-100 GENERAL: The patient is awake, alert, and fully oriented, in no acute distress. LUNGS: Breath sounds equal, clear to auscultation bilaterally, no wheezes, no crackles, no accessory muscle use. HEART: Regular rate and rhythm, S1, S2 without murmurs ABDOMEN: Soft, nontender, nondistended, normoactive bowel sounds. Midline scar noted, pt says she burned herself prior to coming to hospital EXTREMITIES: LLE pulses diminished. Pt able to move LLE limb and toes. 2+ pulses present RLE. SKIN: No rashes/ dry skin/ scars noted. Few nevi present on LLEs. Laboratory Results - last 24 hr 04/04/19 04/04/19 04/05/19 18:19 23:09 06:20 WBC 11.0 H RBC 4.07 Hgb 12.0 Hct 35.9 MCV 88.2 MCH 29.5 MCHC 33.5 RDW 14.3 Plt Count 262 D MPV 8.3 Absolute Neuts (auto) 8.9 H Neutrophils % 81.6 D Lymphocytes % 11.3 D Monocytes % 6.5 Eosinophils % 0.1 D Basophils % 0.5 Nucleated RBC % 0 Sodium Potassium Chloride Carbon Dioxide Anion Gap BUN Creatinine Est GFR (CKD-EPI)AfAm Est GFR (CKD-EPI)NonAf POC Glucometer 308 370 Random Glucose Calcium 04/05/19 04/05/19 04/05/19 06:20 06:36 12:12 WBC RBC Hgb Hct MCV MCH MCHC RDW Plt Count MPV Absolute Neuts (auto) Neutrophils % Lymphocytes % Monocytes % Eosinophils % Basophils % Nucleated RBC % Sodium 134 L Potassium 4.5 Chloride 101 Carbon Dioxide 26 Anion Gap 7 L BUN 21.9 H Creatinine 1.9 H Est GFR (CKD-EPI)AfAm 32.18 Est GFR (CKD-EPI)NonAf 27.77 POC Glucometer 268 261 Random Glucose 267 H Calcium 8.6 Active Medications Generic Name Dose Route Start Last Admin Trade Name Freq PRN Reason Stop Dose Admin Acetaminophen 650 mg 04/05/19 09:32 Tylenol - PO Q6H PRN PAIN OR FEVER Aspirin 81 mg 04/05/19 10:00 04/05/19 10:19 Asa - PO 81 mg DAILY [facility] Administration Atorvastatin Calcium 10 mg 04/05/19 22:00 Lipitor - PO HS [facility] Clopidogrel Bisulfate 75 mg 04/05/19 10:00 04/05/19 10:12 Plavix - PO 75 mg DAILY [facility] Administration Docusate Sodium 100 mg 04/05/19 10:00 04/05/19 10:12 Colace - PO Not Given BID [facility] Heparin Sodium (Porcine) 5,000 unit 04/05/19 10:00 04/05/19 10:16 Heparin - SQ 5,000 unit BID [facility] Administration Hydrochlorothiazide 25 mg 04/05/19 10:00 04/05/19 10:12 Hctz - PO 25 mg DAILY [facility] Administration Sodium Chloride 1,000 mls @ 50 mls/hr 04/05/19 13:23 04/05/19 13:29 1/2 Normal Saline IV 50 mls/hr ASDIR [facility] Administration Insulin Aspart 1 vial 04/05/19 11:00 04/05/19 13:25 Novolog Vial Sliding Scale - SQ 6 units ACHS [facility] Administration Protocol Insulin Detemir 10 units 04/05/19 09:35 04/05/19 10:14 Levemir Vial SQ 10 unit AM [facility] Administration Lisinopril 30 mg 04/05/19 10:00 04/05/19 10:11 Prinivil PO 30 mg DAILY [facility] Administration Non-Formulary Medication 145 mcg 04/05/19 10:00 Linaclotide [Linzess] PO DAILY [facility] Ondansetron HCl 4 mg 04/04/19 17:29 Zofran Injection IVPUSH Q6H PRN NAUSEA AND/OR VOMITING Oxycodone HCl 5 mg 04/05/19 08:17 Roxicodone - PO Q4H PRN PAIN LEVEL 1-5 Oxycodone HCl 10 mg 04/05/19 08:18 04/05/19 12:07 Roxicodone - PO 04/06/19 01:12 10 mg Q4H PRN Administration PAIN LEVEL 6-10 Polyethylene Glycol 17 gm 04/05/19 09:32 Miralax (For Daily Use) - PO DAILY PRN [facility]STIP[facility] Promethazine HCl 12.5 mg 04/04/19 17:29 Phenergan Injection - IVPUSH Q6H PRN NAUSEA-FOR RESCUE AFTER 15 MIN Regadenoson 0.4 mg 04/05/19 09:32 04/05/19 12:06 Lexiscan IVPUSH 04/05/19 09:33 Not Given ONCE ONE ASSESSMENT/PLAN: 63 y.o. F [facility] M on insulin pump, HTN, PAS s/p enarterctomy, found to have left STEVEDORE HOLD & rt SFA occlusion on LE CTA. #Left STEVEDORE HOLD & rt SFA arterial occlusion -Post-op day #1 S/p left femoral endarterectomy w/ aortic graft placement -Pain control Oxy q4h PRN, Tylenol -Zofran q6h PRN for nausea -Started on Plavix 75mg PO daily #Uncontrolled DM -POCs 260's today -Incr Levemir to 10 SQ daily -On insulin pump- Dr. Lopez medical legal investigator, office open M--- contact for basal insulin rate -ISS #HTN -Lisinopril 30mg PO daily -HCTZ #HLD -Atorvastatin 10mg PO daily #FEN -1/2 NS @ 50mL/hr -Mild hyponatremia 134. Repeat lytes in AM -Diabetic diet #DVT PPX -Heparin SQ Visit type - Emergency Visit Emergency Visit: No - New Patient This patient is new to me today: No - Critical Care Critical Care patient: No ATTENDING PHYSICIAN STATEMENT I saw and evaluated the patient. I reviewed the resident's note and discussed the case with the resident. I agree with the resident's findings and plan as documented. SUBJECTIVE: OBJECTIVE: ASSESSMENT AND PLAN:
--- NOTE | 2019-04-05 16:26 | PN ---
Teaching Attending Note Name of Resident: Nella King ATTENDING PHYSICIAN STATEMENT I saw and evaluated the patient. I reviewed the resident's note and discussed the case with the resident. I agree with the resident's findings and plan as documented. SUBJECTIVE: Feels well. Some improvement in L foot/leg discomfort. No fever/ chills. OBJECTIVE: Afebrile, Hemodynamically Stable. Last Vital Signs Temp Pulse Resp BP Pulse Ox 98.9 F 93 H 20 114/66 96 04/05/19 06:00 04/05/19 06:00 04/05/19 06:00 04/05/19 06:00 04/04/19 21:00 HEENT - Atraumatic, Normocephalic. Heart - S1, S2, RRR Lungs - clear to auscultation Abdomen - Soft, non-tender. Bowel Sounds normal. Extremities - no edema, no calf tenderness. Extremities warm, well perfused, groin wounds dressings dry. Laboratory Results - last 24 hr 04/04/19 04/04/19 04/05/19 18:19 23:09 06:20 WBC 11.0 H RBC 4.07 Hgb 12.0 Hct 35.9 MCV 88.2 MCH 29.5 MCHC 33.5 RDW 14.3 Plt Count 262 D MPV 8.3 Absolute Neuts (auto) 8.9 H Neutrophils % 81.6 D Lymphocytes % 11.3 D Monocytes % 6.5 Eosinophils % 0.1 D Basophils % 0.5 Nucleated RBC % 0 Sodium Potassium Chloride Carbon Dioxide Anion Gap BUN Creatinine Est GFR (CKD-EPI)AfAm Est GFR (CKD-EPI)NonAf POC Glucometer 308 370 Random Glucose Calcium 04/05/19 04/05/19 04/05/19 06:20 06:36 12:12 WBC RBC Hgb Hct MCV MCH MCHC RDW Plt Count MPV Absolute Neuts (auto) Neutrophils % Lymphocytes % Monocytes % Eosinophils % Basophils % Nucleated RBC % Sodium 134 L Potassium 4.5 Chloride 101 Carbon Dioxide 26 Anion Gap 7 L BUN 21.9 H Creatinine 1.9 H Est GFR (CKD-EPI)AfAm 32.18 Est GFR (CKD-EPI)NonAf 27.77 POC Glucometer 268 261 Random Glucose 267 H Calcium 8.6 Current Medications Generic Name Dose Route Start Last Admin Trade Name Freq PRN Reason Stop Dose Admin Acetaminophen 650 mg 04/05/19 09:32 Tylenol - PO Q6H PRN PAIN OR FEVER Aspirin 81 mg 04/05/19 10:00 04/05/19 10:19 Asa - PO 81 mg DAILY [facility] Administration Atorvastatin Calcium 10 mg 04/05/19 22:00 Lipitor - PO HS [facility] Clopidogrel Bisulfate 75 mg 04/05/19 10:00 04/05/19 10:12 Plavix - PO 75 mg DAILY [facility] Administration Docusate Sodium 100 mg 04/05/19 10:00 04/05/19 10:12 Colace - PO Not Given BID [facility] Heparin Sodium (Porcine) 5,000 unit 04/05/19 10:00 04/05/19 10:16 Heparin - SQ 5,000 unit BID [facility] Administration Hydrochlorothiazide 25 mg 04/05/19 10:00 04/05/19 10:12 Hctz - PO 25 mg DAILY [facility] Administration Sodium Chloride 1,000 mls @ 50 mls/hr 04/05/19 13:23 04/05/19 13:29 1/2 Normal Saline IV 50 mls/hr ASDIR [facility] Administration Insulin Aspart 1 vial 04/05/19 11:00 04/05/19 13:25 Novolog Vial Sliding Scale - SQ 6 units ACHS [facility] Administration Protocol Insulin Detemir 10 units 04/05/19 09:35 04/05/19 10:14 Levemir Vial SQ 10 unit AM [facility] Administration Lisinopril 30 mg 04/05/19 10:00 04/05/19 10:11 Prinivil PO 30 mg DAILY [facility] Administration Non-Formulary Medication 145 mcg 04/05/19 10:00 Linaclotide [Linzess] PO DAILY [facility] Ondansetron HCl 4 mg 04/04/19 17:29 Zofran Injection IVPUSH Q6H PRN NAUSEA AND/OR VOMITING Oxycodone HCl 5 mg 04/05/19 08:17 Roxicodone - PO Q4H PRN PAIN LEVEL 1-5 Oxycodone HCl 10 mg 04/05/19 08:18 04/05/19 12:07 Roxicodone - PO 04/06/19 01:12 10 mg Q4H PRN Administration PAIN LEVEL 6-10 Polyethylene Glycol 17 gm 04/05/19 09:32 Miralax (For Daily Use) - PO DAILY PRN [facility] Promethazine HCl 12.5 mg 04/04/19 17:29 Phenergan Injection - IVPUSH Q6H PRN NAUSEA-FOR RESCUE AFTER 15 MIN Home Medications Medication Instructions Recorded Lisinopril [Prinivil -] 30 mg PO DAILY 07/04/14 Insulin Lispro [Humalog] 1 pump SQ PRN PRN 03/30/19 Budesonide/Formeterol Fumarate 2 puff PO BID 03/31/19 [SYMBICORT 160/4.5mcg -] Escitalopram Oxalate [Lexapro -] 20 mg PO DAILY 03/31/19 Ibuprofen [Motrin -] 600 mg PO Q6H 03/31/19 Pravastatin Sodium 20 mg PO DAILY 03/31/19 traZODone HCL [Trazodone HCl] 100 mg PO DAILY 03/31/19 ASSESSMENT AND PLAN: 63 year old female with HTN, DM 2, PAD s/p Endarterectomy, HLD, presented to the ER with cool L foot, found to have significant stenosis of L FOURTH GRADE TEACHER and R SFA. 1. Subacute L Limb iscehmia POD 1 s/p L femoral endarterectomy with aortic graft placement. Extremity warm, well perfused. Continue Aspirin/Plavix/Statin 2. DM 2 - previously on insulin pump at home. Will cover with Levemir and Novolog sliding scale. 3. DAMIEN, etiology unclear. Will hydrate. Urine Na and Creat requested. Renal imaging ordered. Nephrology consulted. 4. HTN - Controlled. Will hold Lisinopril and HCTZ held sec to DAMIEN. 5. HLD - Continue Statin. DVT Px - Heparin SQ
[2019-04-05] MEDS: ATORVASTATIN CA 10 MG TABLET (FP) PO SCH (21:12)
[2019-04-06] MEDS: oxyCODONE HCL 5 MG TABLET PO PRN ×3 (02:27→20:29)
[2019-04-06] MEDS: INSULIN SLIDING SCALE (NOVOLOG) 1 VIAL SQ SCH ×4 (07:02→22:07)
[2019-04-06] MEDS: INSULIN (LEVEMIR) 100 UNITS/ML UNITS SQ SCH (07:03)
--- NOTE | 2019-04-06 08:42 | SPA.POSTOP ---
- POST-OP NOTE POD #2 s/p Left femoral endarterectomy. Placement covered stent graft aorta. Pt states that her pain has improved. She ambulated the hallways with PT yesterday using a walker. Last Vital Signs Temp Pulse Resp BP Pulse Ox 99.8 F H 91 H 20 122/65 96 04/06/19 04:59 04/05/19 21:00 04/06/19 04:59 04/06/19 04:59 04/05/19 09:00 Physical Exam General: No acute distress. Pulm: Clear to auscultation bilat anteriorly Cor: Regular rhythm Abd: Soft. Non-tender. No distention LE: Soft, non-tender bilat. LLE: groin dressing changed this am and remains clean/dry. Moving left foot. 5/5 dorsi/plantar flexion 4/5. RLE: groin no evidence of hematoma. A/P: 63 yo female s/p Left femoral endarterectomy. Placement covered stent graft aorta. Pt doing well today, able to ambulate and move left foot. Continue aspirin/plavix and heparin SQ OOB ambulate/PT D/w Dr. Mena
[2019-04-06 09:11] LABS: BASO % 0.4 % (0-2.0); EOS % 0.4 % (0-4.5); HEMATOCRIT 33.2 % (32.4-45.2); HEMOGLOBIN 11.1 GM/dL (10.7-15.3); LYMPH % 8.5 % (8-40); MCH 29.1 pg (25.7-33.7); MCHC 33.5 g/dl (32.0-36.0); MEAN CELL VOLUME 86.9 fl (80-96); MEAN PLT VOLUME 8.6 fl (7.5-11.1); MONO % 8.1 % (3.8-10.2); NEUT % 82.6 % (42.8-82.8); PLATELET COUNT 259 K/MM3 (134-434); RBC 3.82 M/mm3 (3.60-5.2); RDW 14.1 % (11.6-15.6); WHITE BLOOD COUNT 11.6 K/mm3 (4.0-10.0)
[2019-04-06 09:35] LABS: BLOOD UREA NITROGEN 17.3 mg/dL (7-18); CALCIUM 8.9 mg/dL (8.5-10.1); CREATININE 1.9 mg/dL (0.55-1.3); POTASSIUM 4.4 mmol/L (3.5-5.1)
[2019-04-06] MEDS: HEPARIN NA (PORCINE) 5,000 UNITS/ML 1ML VIAL SQ SCH ×2 (11:05→22:07)
[2019-04-06] MEDS: DOCUSATE SODIUM 100 MG CAPSULE (FP) PO SCH ×2 (11:05→22:07)
[2019-04-06] MEDS: ASPIRIN 81 MG CHEWABLE TABLETS PO SCH (11:05)
[2019-04-06] MEDS: CLOPIDOGREL BISULFATE 75 MG TABLET (FP) PO SCH (11:07)
--- NOTE | 2019-04-06 13:01 | CONSULT ---
Consult Consult Specialty:: Nephrology Reason for Consultation:: DAMIEN - History of Present Illness Chief Complaint: left foot pain History of Present Illness: Pt is a 63 year old female with pmhx of HTN, HLD, DM, PAD, PVD, left fem endarterectomy who was sent in for left foot pain for evaluation of ischemia. She had the pain for several weeks. She went to ER and was given nsaids. She then presented with worsening symptoms. She had a ct angio with 120 cc of omnipaque. She was later to OR for repair. She feels that her leg is much better today. She was found to have elevated dope heater and I was called to evaluate her. She denies shortness of breath. She denies dysuria or hematuria. - Past Medical History Cardio/Vascular: Yes: HTN, Hyperlipdemia, Other (PAD) Endocrine: Yes: Diabetes Mellitus - Alcohol/Substance Use Hx Alcohol Use: No - Smoking History Smoking history: Unknown if ever smoked Have you smoked in the past 12 months: No Aproximately how many cigarettes per day: 2 If you are a former smoker, when did you quit?: 6 months ago - Social History ADL: Independent History of Recent Travel: No Home Medications - Allergies Allergies/Adverse Reactions: Allergies Allergy/AdvReac Type Severity Reaction Status Date / Time No Known Allergies Allergy Verified 03/30/19 12:34 - Home Medications Home Medications: Ambulatory Orders Lisinopril [Prinivil -] 30 mg PO DAILY 07/04/14 Insulin Lispro [Humalog] 1 pump SQ PRN PRN 03/30/19 Budesonide/Formeterol Fumarate [SYMBICORT 160/4.5mcg -] 2 puff PO BID 03/31/19 Escitalopram Oxalate [Lexapro -] 20 mg PO DAILY 03/31/19 Ibuprofen [Motrin -] 600 mg PO Q6H 03/31/19 Pravastatin Sodium 20 mg PO DAILY 03/31/19 traZODone HCL [Trazodone HCl] 100 mg PO DAILY 03/31/19 Family Disease History - Family Disease History Family History: Denies Review of Systems - Review of Systems Constitutional: reports: No Symptoms Eyes: reports: No Symptoms HENT: reports: No Symptoms Neck: reports: No Symptoms Cardiovascular: reports: No Symptoms Respiratory: reports: No Symptoms Gastrointestinal: reports: No Symptoms Genitourinary: reports: No Symptoms Musculoskeletal: reports: No Symptoms Integumentary: reports: No Symptoms Neurological: reports: No Symptoms Endocrine: reports: No Symptoms Hematology/Lymphatic: reports: No Symptoms Psychiatric: reports: No Symptoms Physical Exam Vital Signs: Vital Signs Temperature 99.8 F H 04/06/19 04:59 Pulse Rate 91 H 04/05/19 21:00 Respiratory Rate 20 04/06/19 04:59 Blood Pressure 122/65 04/06/19 04:59 O2 Sat by Pulse Oximetry (%) 96 04/05/19 09:00 Constitutional: Yes: Calm Eyes: Yes: Conjunctiva Clear HENT: Yes: Atraumatic Neck: Yes: Supple Cardiovascular: Yes: S1, S2 Respiratory: Yes: CTA Bilaterally Gastrointestinal: Yes: Normal Bowel Sounds, Soft Renal/: Yes: WNL Musculoskeletal: Yes: WNL Edema: No Neurological: Yes: Oriented Psychiatric: Yes: Oriented Labs: CBC, BMP 04/06/19 08:10 04/06/19 08:10 Laboratory Tests 03/30/19 03/31/19 04/01/19 14:32 06:24 06:45 WBC Hgb Creatinine 1.2 0.9 1.0 04/05/19 04/06/19 04/06/19 06:20 08:10 08:10 WBC 11.6 H Hgb 11.1 Creatinine 1.9 H 1.9 H Imaging - Results Cat Scan: Report Reviewed Ultrasound: Report Reviewed Problem List - Problems (1) DAMIEN (acute kidney injury) Code(s): N17.9 - ACUTE KIDNEY FAILURE, UNSPECIFIED (2) Arterial occlusion Code(s): I70.90 - UNSPECIFIED ATHEROSCLEROSIS (3) Leg pain, left Code(s): M79.605 - PAIN IN LEFT LEG Assessment/Plan Current Medications Generic Name Dose Route Start Last Admin Trade Name Freq PRN Reason Stop Dose Admin Aspirin 81 mg 04/05/19 10:00 04/06/19 11:05 Asa - PO 81 mg DAILY KELLEN Administration Atorvastatin Calcium 10 mg 04/05/19 22:00 04/05/19 21:12 Lipitor - PO 10 mg HS KELLEN Administration Clopidogrel Bisulfate 75 mg 04/05/19 10:00 04/06/19 11:07 Plavix - PO 75 mg DAILY KELLEN Administration Docusate Sodium 100 mg 04/05/19 10:00 04/06/19 11:05 Colace - PO 100 mg BID KELLEN Administration Heparin Sodium (Porcine) 5,000 unit 04/05/19 10:00 04/06/19 11:05 Heparin - SQ 5,000 unit BID KELLEN Administration Sodium Chloride 1,000 mls @ 125 mls/hr 04/05/19 16:36 04/05/19 16:40 1/2 Normal Saline IV 125 mls/hr ASDIR KELLEN Administration Insulin Aspart 1 vial 04/05/19 11:00 04/06/19 07:02 Novolog Vial Sliding Scale - SQ 6 units ACHS KE[facility]EN Administration Protocol Insulin Detemir 10 units 04/05/19 09:35 04/06/19 07:03 Levemir Vial SQ 10 units AM KE[facility]EN Administration Non-Formulary Medication 145 mcg 04/05/19 10:00 Linaclotide [Linzess] PO DAILY KELLEN Ondansetron HCl 4 mg 04/04/19 17:29 Zofran Injection IVPUSH Q6H PRN NAUSEA AND/OR VOMITING Oxycodone HCl 5 mg 04/05/19 08:17 04/06/19 02:27 Roxicodone - PO 5 mg Q4H PRN Administration PAIN LEVEL 1-5 Polyethylene Glycol 17 gm 04/05/19 09:32 Miralax (For Daily Use) - PO DAILY PRN CONSTIPATION Promethazine HCl 12.5 mg 04/04/19 17:29 Phenergan Injection - IVPUSH Q6H PRN NAUSEA-FOR RESCUE AFTER 15 MIN Impression 1. DAMIEN 2. PVD 3. smoking hx 4. nsiad use 5. HTN 6. HLD 7. DM Plan - check ua - check urine lytes and dope heater - cont to monitor renal function - may have COMFORT - cont fluids for now - avoid nsaids
[2019-04-06] MEDS: SODIUM CHLORIDE 0.45% 1,000 ML IV SCH (13:40)
--- NOTE | 2019-04-06 13:57 | PATH ---
Surgical Pathology Report Patient Name: RICKY MILLER Med. Rec. #: [id number] /Age/Gender: 1955 (Age: 63) / F Account: [id number] Location: [facility] MED/SURG Taken: 04/04/2019 Received: 04/05/2019 Reported: 04/06/2019 Physicians: Viral Mena M.D. Specimen(s) Received PLAQUE, LEFT FEMORAL ARTERY Clinical History Left foot pain, PVD Final Diagnosis PLAQUE, FEMORAL ARTERY, LEFT, ENDARTERECTOMY: ATHEROMATOUS AND CALCIFIED PLAQUE. Electronically Signed Rosetta Hennessy M.D. Gross Description Received in formalin labeled "plaque left femoral artery," is a 2.8 x 1.8 x 0.3 cm aggregate of multiple garrett-yellow, irregular portions of plaque. Mds Coordinator sections are submitted in one cassette. DL/04/05/2019 saudi/04/05/2019
--- NOTE | 2019-04-06 16:01 | PN ---
Progress Note (short form) - Note Progress Note: s: no cp sob palps dizzy Current Medications Generic Name Dose Route Start Last Admin Trade Name Freq PRN Reason Stop Dose Admin Aspirin 81 mg 04/05/19 10:00 04/06/19 11:05 Asa - PO 81 mg DAILY KELLEN Administration Atorvastatin Calcium 10 mg 04/05/19 22:00 04/05/19 21:12 Lipitor - PO 10 mg HS KELLEN Administration Clopidogrel Bisulfate 75 mg 04/05/19 10:00 04/06/19 11:07 Plavix - PO 75 mg DAILY KELLEN Administration Docusate Sodium 100 mg 04/05/19 10:00 04/06/19 11:05 Colace - PO 100 mg BID KELLEN Administration Heparin Sodium (Porcine) 5,000 unit 04/05/19 10:00 04/06/19 11:05 Heparin - SQ 5,000 unit BID KELLEN Administration Sodium Chloride 1,000 mls @ 100 mls/hr 04/06/19 13:04 04/06/19 13:40 1/2 Normal Saline IV Not Given ASDIR [facility] Insulin Aspart 1 vial 04/05/19 11:00 04/06/19 14:05 Novolog Vial Sliding Scale - SQ 4 units ACHS [facility] Administration Protocol Insulin Detemir 10 units 04/05/19 09:35 04/06/19 07:03 Levemir Vial SQ 10 units AM [facility] Administration Non-Formulary Medication 145 mcg 04/05/19 10:00 Linaclotide [Linzess] PO DAILY [facility] Ondansetron HCl 4 mg 04/04/19 17:29 Zofran Injection IVPUSH Q6H PRN NAUSEA AND/OR VOMITING Oxycodone HCl 5 mg 04/05/19 08:17 04/06/19 13:55 Roxicodone - PO 5 mg Q4H PRN Administration PAIN LEVEL 1-5 Polyethylene Glycol 17 gm 04/05/19 09:32 Miralax (For Daily Use) - PO DAILY PRN CONSTIPATION Promethazine HCl 12.5 mg 04/04/19 17:29 Phenergan Injection - IVPUSH Q6H PRN NAUSEA-FOR RESCUE AFTER 15 MIN - Objective Vital Signs: Vital Signs Period Temp Pulse Resp BP Sys/Mendoza Pulse Ox Last 24 Hr 98.8 F-100.8 F 80-91 20-20 122-148/65-84 Constitutional: Yes: No Distress, Calm Eyes: Yes: Conjunctiva Clear Cardiovascular: Yes: Regular Rate and Rhythm Respiratory: Yes: CTA Bilaterally Gastrointestinal: Yes: Soft Edema: No Neurological: Yes: Alert, Oriented no jaundice diaphoresis Labs: CBC, BMP 04/06/19 08:10 04/06/19 08:10 - ....Imaging EKG: Image Reviewed Other: Other (LEXISCAN Stress: no ischemia, normalEF, no TID) Assessment/Plan DATA: EKG sinus, nl intervals, lateral TWI stable compared to prior CTA: narrow, thrombus filled distal aorta. 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 Preop evaluation, PAD: - patient is asymptomatic however limited functional status - nuclear stress test here showed no ischemia, normal LVEF and no evidence TID. -now s/p left fem endarterectomy and covered aortic stent, feeling well -cont statin, on dapt per vascular 2. harlan: -?laura, renal following, trend cr -lovely held for now
--- NOTE | 2019-04-06 17:27 | PN ---
Physical Exam: SUBJECTIVE: Patient seen and examined at bedside. Some pain present at L femoral wound site; on PE wound & dressing C/D/I. Mild numbness to LLE. OBJECTIVE: Vital Signs Period Temp Pulse Resp BP Sys/Mendoza Pulse Ox Last 24 Hr 98.8 F-100.8 F 80-91 20-20 122-148/65-84 GENERAL: The patient is awake, alert, and fully oriented, in no acute distress. LUNGS: Breath sounds equal, clear to auscultation bilaterally, no wheezes, no crackles, no accessory muscle use. HEART: Regular rate and rhythm, S1, S2 without murmurs ABDOMEN: Soft, nontender, nondistended, normoactive bowel sounds. Midline scar noted. EXTREMITIES: LLE pulses diminished. Pt able to move LLE limb and toes. 2+ pulses present RLE. Sensory intact b/l UE & LE. SKIN: L femoral dressing C/D/I. No rashes/ dry skin/ scars noted. Few nevi present on LLEs. Laboratory Results - last 24 hr Laboratory Last Values WBC 11.6 K/mm3 (4.0-10.0) H 04/06/19 08:10 RBC 3.82 M/mm3 (3.60-5.2) 04/06/19 08:10 Hgb 11.1 GM/dL (10.7-15.3) 04/06/19 08:10 Hct 33.2 % (32.4-45.2) 04/06/19 08:10 MCV 86.9 fl (80-96) 04/06/19 08:10 MCH 29.1 pg (25.7-33.7) 04/06/19 08:10 MCHC 33.5 g/dl (32.0-36.0) 04/06/19 08:10 RDW 14.1 % (11.6-15.6) 04/06/19 08:10 Plt Count 259 K/MM3 (134-434) 04/06/19 08:10 MPV 8.6 fl (7.5-11.1) 04/06/19 08:10 Absolute Neuts (auto) 9.6 K/mm3 (1.5-8.0) H 04/06/19 08:10 Neutrophils % 82.6 % (42.8-82.8) 04/06/19 08:10 Lymphocytes % 8.5 % (8-40) D 04/06/19 08:10 Monocytes % 8.1 % (3.8-10.2) 04/06/19 08:10 Eosinophils % 0.4 % (0-4.5) D 04/06/19 08:10 Basophils % 0.4 % (0-2.0) 04/06/19 08:10 Nucleated RBC % 0 % (0-0) 04/06/19 08:10 PT with INR 9.60 SEC (9.7-13.0) L 03/30/19 14:32 INR 0.82 (0.83-1.09) L 03/30/19 14:32 PTT (Actin FS) 29.3 SECONDS (25.2-36.5) 03/30/19 14:32 Sodium 133 mmol/L (136-145) L 04/06/19 08:10 Potassium 4.4 mmol/L (3.5-5.1) 04/06/19 08:10 Chloride 101 mmol/L (98-107) 04/06/19 08:10 Carbon Dioxide 27 mmol/L (21-32) 04/06/19 08:10 Anion Gap 6 MMOL/L (8-16) L 04/06/19 08:10 BUN 17.3 mg/dL (7-18) 04/06/19 08:10 Creatinine 1.9 mg/dL (0.55-1.3) H 04/06/19 08:10 Est GFR (CKD-EPI)AfAm 32.18 04/06/19 08:10 Est GFR (CKD-EPI)NonAf 27.77 04/06/19 08:10 POC Glucometer 289 UNITS (80-120) 04/06/19 06:47 Random Glucose 195 mg/dL (74-106) H 04/06/19 08:10 Hemoglobin A1c % 9.1 % (4.2-6.3) H 04/01/19 06:45 Calcium 8.9 mg/dL (8.5-10.1) 04/06/19 08:10 Total Bilirubin 0.4 mg/dL (0.2-1) 04/01/19 06:45 AST 8 U/L (15-37) L 04/01/19 06:45 ALT 19 U/L (13-61) 04/01/19 06:45 Alkaline Phosphatase 83 U/L (45-117) 04/01/19 06:45 Total Protein 7.1 g/dl (6.4-8.2) 04/01/19 06:45 Albumin 3.6 g/dl (3.4-5.0) 04/01/19 06:45 Blood Type A NEGATIVE 04/04/19 06:56 Antibody Screen Negative 04/04/19 06:56 Crossmatch See Detail 04/04/19 06:56 Active Medications Current Medications Aspirin (Asa -) 81 mg PO DAILY [facility] Last Admin: 04/06/19 11:05 Dose: 81 mg Atorvastatin Calcium (Lipitor -) 10 mg PO HS [facility] Last Admin: 04/05/19 21:12 Dose: 10 mg Clopidogrel Bisulfate (Plavix -) 75 mg PO DAILY [facility] Last Admin: 04/06/19 11:07 Dose: 75 mg Docusate Sodium (Colace -) 100 mg PO BID [facility] Last Admin: 04/06/19 11:05 Dose: 100 mg Heparin Sodium (Porcine) (Heparin -) 5,000 unit SQ BID [facility] Last Admin: 04/06/19 11:05 Dose: 5,000 unit Sodium Chloride (1/2 Normal Saline) 1,000 mls @ 100 mls/hr IV ASDIR [facility] Last Admin: 04/06/19 13:40 Dose: Not Given Insulin Aspart (Novolog Vial Sliding Scale -) 1 vial SQ ACHS [facility]; Protocol Last Admin: 04/06/19 14:05 Dose: 4 units Insulin Detemir (Levemir Vial) 10 units SQ AM [facility] Last Admin: 04/06/19 07:03 Dose: 10 units Non-Formulary Medication (Linaclotide [Linzess]) 145 mcg PO DAILY [facility] Ondansetron HCl (Zofran Injection) 4 mg IVPUSH Q6H PRN PRN Reason: NAUSEA AND/OR VOMITING Oxycodone HCl (Roxicodone -) 5 mg PO Q4H PRN PRN Reason: PAIN LEVEL 1-5 Last Admin: 04/06/19 13:55 Dose: 5 mg Polyethylene Glycol (Miralax (For Daily Use) -) 17 gm PO DAILY PRN PRN Reason: CONSTIPATION Promethazine HCl (Phenergan Injection -) 12.5 mg IVPUSH Q6H PRN PRN Reason: NAUSEA-FOR RESCUE AFTER 15 MIN ASSESSMENT/PLAN: 63 y.o. F PMH DM on insulin pump, HTN, PAS s/p endarterctomy, found to have left NURSE OB & rt SFA occlusion on LE CTA. 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 I reviewed the resident's note and discussed the case with the resident. I agree with the resident's findings and plan as documented. SUBJECTIVE: OBJECTIVE: ASSESSMENT AND PLAN:
--- NOTE | 2019-04-06 19:07 | PN ---
Teaching Attending Note Name of Resident: Nella King ATTENDING PHYSICIAN STATEMENT I saw and evaluated the patient. I reviewed the resident's note and discussed the case with the resident. I agree with the resident's findings and plan as documented. HYPERPLASIA OF ADRENALS - for out-patient follow up. L RENAL CYST 1.5CM - For out-patient follow up. R ADNEXAL HYDROSALPINX - for out-patient Gynecology follow up. Original Note: Teaching Attending Note Name of Resident: Nella King ATTENDING PHYSICIAN STATEMENT I saw and evaluated the patient. I reviewed the resident's note and discussed the case with the resident. I agree with the resident's findings and plan as documented. SUBJECTIVE: Feels well. Continued improvement in L foot/leg discomfort. No cough/sputum/dysuria/infection at wound site. OBJECTIVE: Febrile overnight, Tmax 100.8. Hemodynamically Stable. Last Vital Signs Temp Pulse Resp BP Pulse Ox 99.6 F 105 H 20 134/79 96 04/06/19 17:21 04/06/19 17:21 04/06/19 17:21 04/06/19 17:21 04/05/19 09:00 Heart - S1, S2, RRR Lungs - clear to auscultation Abdomen - Soft, non-tender. Bowel Sounds normal. Extremities - no edema, no calf tenderness. Extremities warm, well perfused, groin wounds dressings dry. Laboratory Results - last 24 hr 04/05/19 04/06/19 04/06/19 21:16 06:47 08:10 WBC 11.6 H RBC 3.82 Hgb 11.1 Hct 33.2 MCV 86.9 MCH 29.1 MCHC 33.5 RDW 14.1 Plt Count 259 MPV 8.6 Absolute Neuts (auto) 9.6 H Neutrophils % 82.6 Lymphocytes % 8.5 D Monocytes % 8.1 Eosinophils % 0.4 D Basophils % 0.4 Nucleated RBC % 0 Sodium Potassium Chloride Carbon Dioxide Anion Gap BUN Creatinine Est GFR (CKD-EPI)AfAm Est GFR (CKD-EPI)NonAf POC Glucometer 224 289 Random Glucose Calcium 04/06/19 08:10 WBC RBC Hgb Hct MCV MCH MCHC RDW Plt Count MPV Absolute Neuts (auto) Neutrophils % Lymphocytes % Monocytes % Eosinophils % Basophils % Nucleated RBC % Sodium 133 L Potassium 4.4 Chloride 101 Carbon Dioxide 27 Anion Gap 6 L BUN 17.3 Creatinine 1.9 H Est GFR (CKD-EPI)AfAm 32.18 Est GFR (CKD-EPI)NonAf 27.77 POC Glucometer Random Glucose 195 H Calcium 8.9 Current Medications Generic Name Dose Route Start Last Admin Trade Name Freq PRN Reason Stop Dose Admin Aspirin 81 mg 04/05/19 10:00 04/06/19 11:05 Asa - PO 81 mg DAILY [facility]LLEN Administration Atorvastatin Calcium 10 mg 04/05/19 22:00 04/05/19 21:12 Lipitor - PO 10 mg HS KELLEN Administration Clopidogrel Bisulfate 75 mg 04/05/19 10:00 04/06/19 11:07 Plavix - PO 75 mg DAILY KELLEN Administration Docusate Sodium 100 mg 04/05/19 10:00 04/06/19 11:05 Colace - PO 100 mg BID KELLEN Administration Heparin Sodium (Porcine) 5,000 unit 04/05/19 10:00 04/06/19 11:05 Heparin - SQ 5,000 unit BID [facility] Administration Sodium Chloride 1,000 mls @ 100 mls/hr 04/06/19 13:04 04/06/19 13:40 1/2 Normal Saline IV Not Given ASDIR [facility] Insulin Aspart 1 vial 04/05/19 11:00 04/06/19 14:05 Novolog Vial Sliding Scale - SQ 4 units ACHS [facility] Administration Protocol Insulin Detemir 10 units 04/05/19 09:35 04/06/19 07:03 Levemir Vial SQ 10 units AM [facility] Administration Non-Formulary Medication 145 mcg 04/05/19 10:00 Linaclotide [Linzess] PO DAILY [facility] Ondansetron HCl 4 mg 04/04/19 17:29 Zofran Injection IVPUSH Q6H PRN NAUSEA AND/OR VOMITING Oxycodone HCl 5 mg 04/05/19 08:17 04/06/19 13:55 Roxicodone - PO 5 mg Q4H PRN Administration PAIN LEVEL 1-5 Polyethylene Glycol 17 gm 04/05/19 09:32 Miralax (For Daily Use) - PO DAILY PRN CONSTIPATION Promethazine HCl 12.5 mg 04/04/19 17:29 Phenergan Injection - IVPUSH Q6H PRN NAUSEA-FOR RESCUE AFTER 15 MIN ASSESSMENT AND PLAN: 63 year old female with HTN, DM 2, PAD s/p Endarterectomy, HLD, presented to the ER with cool L foot, found to have 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 1. Subacute L Limb iscehmia POD 2 s/p L femoral endarterectomy with aortic graft placement. Extremity warm, well perfused. Continue Aspirin/Plavix/Statin Will culture if any further fevers. 2. DM 2 - previously on insulin pump at home. Covered with Levemir and Novolog sliding scale. Will increase Levemir to 12 units. 3. DAMIEN, etiology unclear, possible contrast induced nephropathy. Renal US - no hydronephrosis. Nephrology consulted. 4. HTN - Controlled. Lisinopril and HCTZ held sec to DAMIEN. 5. HLD - Continue Statin. DVT Px - Heparin SQ
[2019-04-06] MEDS: ATORVASTATIN CA 10 MG TABLET (FP) PO SCH (22:07)
[2019-04-06 22:54] LABS: EPI CELLS 4.5 /HPF (0-5/HPF); HYALINE CASTS 1 /lpf (0-8); URINE APPEARANCE CLEAR; URINE BACTERIA 6.9 /hpf (NEGATIVE); URINE BILIRUBIN NEGATIVE (NEGATIVE); URINE COLOR YELLOW; URINE GLUCOSE (UA) 2+ (NEGATIVE); URINE KETONE NEGATIVE (NEGATIVE); URINE LEUK ESTERASE NEGATIVE (NEGATIVE); URINE NITRITE NEGATIVE (NEGATIVE); URINE PROTEIN 1+ (NEGATIVE); URINE RBC 1 /hpf (0-4); URINE UROBILINOGEN 0.2 mg/dL (0.2-1.0); URINE WBC 1 /hpf (0-5)
[2019-04-07] MEDS: INSULIN SLIDING SCALE (NOVOLOG) 1 VIAL SQ SCH ×3 (06:33→18:23)
[2019-04-07] MEDS ORDERED: INSULIN (LEVEMIR) 100 UNITS/ML UNITS SQ SCH (07:00)
[2019-04-07 08:11] LABS: ALBUMIN 2.8 g/dl (3.4-5.0); BLOOD UREA NITROGEN 17.7 mg/dL (7-18); CALCIUM 8.8 mg/dL (8.5-10.1); CREATININE 1.7 mg/dL (0.55-1.3); MAGNESIUM 2.1 mg/dL (1.8-2.4); PHOSPHOROUS 3.3 mg/dL (2.5-4.9); POTASSIUM 4.2 mmol/L (3.5-5.1); TOT PROT 6.5 g/dl (6.4-8.2)
[2019-04-07 08:22] LABS: BASO % 0.5 % (0-2.0); EOS % 0.7 % (0-4.5); HEMATOCRIT 32.8 % (32.4-45.2); HEMOGLOBIN 10.8 GM/dL (10.7-15.3); LYMPH % 11.5 % (8-40); MCH 28.7 pg (25.7-33.7); MEAN CELL VOLUME 86.7 fl (80-96); MEAN PLT VOLUME 8.6 fl (7.5-11.1); MONO % 9.9 % (3.8-10.2); NEUT % 77.4 % (42.8-82.8); RBC 3.78 M/mm3 (3.60-5.2); RDW 14.1 % (11.6-15.6); WHITE BLOOD COUNT 11.4 K/mm3 (4.0-10.0)
[2019-04-07] MEDS: oxyCODONE HCL 5 MG TABLET PO PRN (09:03)
[2019-04-07] MEDS: CLOPIDOGREL BISULFATE 75 MG TABLET (FP) PO SCH (09:05)
[2019-04-07] MEDS: HEPARIN NA (PORCINE) 5,000 UNITS/ML 1ML VIAL SQ SCH (09:05)
[2019-04-07] MEDS: DOCUSATE SODIUM 100 MG CAPSULE (FP) PO SCH (09:05)
[2019-04-07] MEDS: ASPIRIN 81 MG CHEWABLE TABLETS PO SCH (09:05)
[2019-04-07 09:07] LABS: PLATELET COUNT 270 K/MM3 (134-434)
--- NOTE | 2019-04-07 09:07 | OP ---
DATE OF OPERATION: 04/04/2019 SURGEON: Viral Mena MD CURING ROOM SUPERVISOR: MARTÍN Souza PROCEDURE: Left femoral endarterectomy. Cannulation of right femoral artery with ultrasound guidance. Placement of covered stent in the abdominal aorta. PREOPERATIVE DIAGNOSIS: Ischemic left leg with aortic atherosclerosis and thrombus. ANESTHESIA: General. ANESTHESIOLOGIST: Santino Story MD OPERATIVE FINDINGS: There was diffuse atherosclerosis of the aorta. There was occlusion of the left femoral artery with plaque and thrombus extending into both superficial femoral and deep femoral branches. OPERATIVE PROCEDURE: Following routine patient identification, general anesthesia was induced. A Moya catheter was placed. The lower abdomen, both groins and thighs were prepped with ChloraPrep. Timeout was performed. Incision was made in the left groin midway between the pubic tubercle and the iliac crest. Subcutaneous tissues were divided using cautery for hemostasis. The femoral artery was exposed and dissected proximally. The bifurcation of the femoral artery was above the level of the inguinal ligament; so, the ligament was incised and the retroperitoneal tissues retracted superiorly. The artery had dense plaque extending up to the external iliac artery where it was mobilized and secured with a vessel loop. The deep and superficial femoral branches were individually secured with vessel loops. Side branches of the artery were then ligated and divided. Using real-time duplex imaging, the right common femoral artery was identified. A site for cannulation above the bifurcation was chosen. A micropuncture needle was advanced under ultrasound guidance into the artery and a wire passed proximally. The needle was exchanged for a 5-Palestinian catheter, and then, an angle-tip wire was advanced proximally into the abdominal aorta. A 6-Palestinian sheath was then exchanged into the vessel. The wire was then advanced under fluoroscopic guidance into the aorta above the level of the renal arteries. A flush catheter was placed over the wire and used to perform aortogram using the power injector. The area of severe stenosis of the aorta was identified, and the images marked on the screen. Patient was systemically heparinized. An 8-Palestinian sheath was then exchanged over the wire and advanced into the abdominal aorta. An 11 mm x 79 mm VBX covered stent graft was then advanced over the wire and deployed from the aortic bifurcation proximally. It was dilated to nominal pressure. The balloon was removed, and a 14-mm balloon then used to post dilate the stent. Repeat imaging revealed good flow through the stent with no residual stenosis. Of note, a lower pole aberrant renal artery was covered during the procedure, which was necessary due to the presence of plaque and thrombus at this level on the preoperative CT scan. The sheath was pulled back into the right iliac artery and left in place. The left femoral artery was then occluded proximally with a vascular clamp and an arteriotomy made from the proximal superficial femoral artery to the common femoral artery. Endarterectomy was then performed with removal of plaque from the common femoral artery. Eversion endarterectomy of the deep femoral artery was performed with return of arterial backbleeding. The vessel was then occluded with vessel loop. The superficial femoral artery plaque was transected just distal to the origin and tacked down with sutures of 6-0 Prolene. The arteriotomy was then closed with a thin, collagen-coated Dacron patch which was sutured in place with 6-0 Prolene. Prior to completion of the suture line, backbleeding was checked from all branches and the vessel filled with heparin solution. Suture line was completed, and clamps were removed. Bleeding from the suture line was controlled with Surgicel. Evaluation with the handheld Doppler revealed a good signal in the deep femoral artery, but poor signal in superficial femoral artery. A catheter was advanced through the sheath in the right femoral artery into the left iliac artery and then angiogram obtained which showed no flow into the superficial femoral artery at the level of the endarterectomy. The artery was then exposed more distally and it was reopened and it was found that the intima had dissected and caused an occlusion. Additional endarterectomy was performed and the plaque sutured to the arterial wall with 6-0 Prolene. Another patch was added onto the previously placed patch using 6-0 Prolene suture. When this was completed, there was good flow into the superficial femoral artery with a strong Doppler pulse present. Wounds were irrigated. The inguinal ligament was repaired with [id number] sutures of 2-0 Vicryl, and the subcutaneous tissues in the groin were closed with interrupted sutures of 3-0 Vicryl in several layers. Keon were used on the skin. The right femoral sheath was then removed, and a Perclose device used to seal the arteriotomy without complication. Sterile dressings were applied, and the patient was taken to the recovery room in stable condition. VIRAL MENA M.D. [id number]
[2019-04-07] MEDS ORDERED: MAGNESIUM HYDROX 2400MG/30ML ORAL SUSPENSION 30 ML CUP PO ONE (09:48)
[2019-04-07] MEDS ORDERED: SENNOSIDES 8.6MG TABLET (FP) PO SCH (10:00)
--- NOTE | 2019-04-07 10:01 | DS ---
Physical Exam: SUBJECTIVE: s/p Left femoral endarterectomy. Placement covered stent graft aorta. Patient seen and examined POD #3 with no new complaints. Pt states that her pain continues to improve and she has been OOB and ambulating the hallways with a walker OBJECTIVE: Vital Signs Period Temp Pulse Resp BP Sys/Mendoza Pulse Ox Last 24 Hr 98.8 F-99.8 F 86-105 18-20 123-152/67-79 97 PHYSICAL EXAM General: A&Ox3, NAD, No acute distress. Pulm: unlabored resp on RA LE: LLE: groin dressing changed this am and remains clean/dry. Moving left foot. 5/5 dorsi/plantar flexion 4/5. thigh soft, supple and non-tender, Lower extremity compartments soft, supple and non-tender, foot/leg and toes warm to touch with +2DP pulse. Right LE groin site clean and dry with surrounding tissue intact and no evidence of hematoma. Thigh and LE compartments soft, supple and non-tender, foot warm and well perfused. LABS Laboratory Results - last 24 hr 04/04/19 04/06/19 04/06/19 06:56 22:35 22:35 WBC RBC Hgb Hct MCV MCH MCHC RDW Plt Count MPV Absolute Neuts (auto) Neutrophils % Lymphocytes % Monocytes % Eosinophils % Basophils % Nucleated RBC % Sodium Potassium Chloride Carbon Dioxide Anion Gap BUN Creatinine Est GFR (CKD-EPI)AfAm Est GFR (CKD-EPI)NonAf POC Glucometer Random Glucose Calcium Phosphorus Magnesium Total Bilirubin AST ALT Alkaline Phosphatase Total Protein Albumin Urine Color Yellow Urine Appearance Clear Urine pH 7.0 D Ur Specific [place] 1.013 Urine Protein 1+ H Urine Glucose (UA) 2+ H Urine Ketones Negative Urine Blood Negative Urine Nitrite Negative Urine Bilirubin Negative Urine Urobilinogen 0.2 Ur Leukocyte Esterase Negative Urine WBC (Auto) 1 Urine RBC (Auto) 1 Urine Casts (Auto) 1 U Epithel Cells (Auto) 4.5 Urine Bacteria (Auto) 6.9 Ur Random Creatinine 66.0 Ur Random Sodium 95 Ur Random Potassium Ur Random Chloride Crossmatch See Detail 04/06/19 04/07/19 04/07/19 22:35 05:53 07:00 WBC RBC Hgb Hct MCV MCH MCHC RDW Plt Count MPV Absolute Neuts (auto) Neutrophils % Lymphocytes % Monocytes % Eosinophils % Basophils % Nucleated RBC % Sodium 134 L Potassium 4.2 Chloride 100 Carbon Dioxide 24 Anion Gap 10 BUN 17.7 Creatinine 1.7 H Est GFR (CKD-EPI)AfAm 36.81 Est GFR (CKD-EPI)NonAf 31.76 POC Glucometer 214 Random Glucose 197 H Calcium 8.8 Phosphorus 3.3 Magnesium 2.1 Total Bilirubin 1.0 AST 63 H ALT 41 Alkaline Phosphatase 103 Total Protein 6.5 Albumin 2.8 L Urine Color Urine Appearance Urine pH Ur Specific [place] Urine Protein Urine Glucose (UA) Urine Ketones Urine Blood Urine Nitrite Urine Bilirubin Urine Urobilinogen Ur Leukocyte Esterase Urine WBC (Auto) Urine RBC (Auto) Urine Casts (Auto) U Epithel Cells (Auto) Urine Bacteria (Auto) Ur Random Creatinine Ur Random Sodium 93 Ur Random Potassium 27.0 Ur Random Chloride 102 L Crossmatch 04/07/19 07:00 WBC 11.4 H RBC 3.78 Hgb 10.8 Hct 32.8 MCV 86.7 MCH 28.7 MCHC 33.0 RDW 14.1 Plt Count 270 MPV 8.6 Absolute Neuts (auto) 8.8 H Neutrophils % 77.4 Lymphocytes % 11.5 D Monocytes % 9.9 Eosinophils % 0.7 Basophils % 0.5 Nucleated RBC % 0 Sodium Potassium Chloride Carbon Dioxide Anion Gap BUN Creatinine Est GFR (CKD-EPI)AfAm Est GFR (CKD-EPI)NonAf POC Glucometer Random Glucose Calcium Phosphorus Magnesium Total Bilirubin AST ALT Alkaline Phosphatase Total Protein Albumin Urine Color Urine Appearance Urine pH Ur Specific [place] Urine Protein Urine Glucose (UA) Urine Ketones Urine Blood Urine Nitrite Urine Bilirubin Urine Urobilinogen Ur Leukocyte Esterase Urine WBC (Auto) Urine RBC (Auto) Urine Casts (Auto) U Epithel Cells (Auto) Urine Bacteria (Auto) Ur Random Creatinine Ur Random Sodium Ur Random Potassium Ur Random Chloride Crossmatch HOSPITAL COURSE: Date of Admission:03/30/19 The patient was admitted to the Med-Surg Unit after emergency treatment for her thrombus in distal aorta, occlusion of the left FOOD STOREROOM CLERK at site of prior endarterectomy and Right SFA occlusion. Now, s/p Left femoral endarterectomy. Placement covered stent graft aorta. POD#1 the patient ambulated the hallways with assistance and a walker. Narcotic and non-narcotic pain management control was achieved with an oral and IV approach. Мария-operative IV ABX were administered. DVT prophylaxis was achieved with SCDs, SQ heparin, Aspirin, Plavix and early ambulation. The patient ambulated with Physical Therapy and no services were recommended upon discharge. Prescriptions were written for Aspirin, Plavix and pain medications. The discharge instructions and an oral pain management plan were reviewed with the patient. All questions answered. Above plan discussed with Dr. Mena Date of Discharge: 04/07/19 Minutes to complete discharge: 25 Discharge Summary Reason For Visit: LEFT FOOT PAIN Current Active Problems DAMIEN (acute kidney injury) (Acute) Arterial occlusion (Acute) Leg pain, left (Acute) Condition: Good - Instructions Diet, Activity, Other Instructions: Dr. Mena's Discharge Instructions Post Operative Instructions Physical activity Resume your normal everyday activity as tolerated no heavy lifting or exercise until seen by your surgeon. You may walk unlimited amounts of and climb stairs. You may resume driving the car when you feel safe and comfortable behind the wheel and are no longer taking narcotics. Wound care If you have a bandage, leave it on, and keep dry for 72 hours. After that time, on 04/07/19, discard the outer bandage and you may shower with regular soap and water. DO NOT submerge the incision. Do not apply lotion or ointments to incision. Diet There are no dietary restrictions. Eat healthy, high-fiber foods. Drink 6 to 8 glasses of liquid each day. This will assist in keeping your bowels are regular. Pain management You may take Tylenol or acetaminophen or Ibuprofen (for example, Motrin, Advil etc.) Any pain prescription medication ordered should be taken as prescribed for moderate to severe pain. Take Aspirin Daily to prevent blood clots Continue Plavix daily as prescribed Call Dr. Mena for any of the following: Severe pain not relieved by medication Fever of 101 or higher Excessive bleeding or drainage on dressing Inability to urinate If you experience any chest pain or shortness of breath please seek emergency treatment immediately. Call the office to make a follow up appointment for 2 weeks post op. Disposition: HOME - Home Medications Comprehensive Discharge Medication List: Ambulatory Orders Lisinopril [Prinivil -] 30 mg PO DAILY 07/04/14 Insulin Lispro [Humalog] 1 pump SQ PRN PRN 03/30/19 Budesonide/Formeterol Fumarate [SYMBICORT 160/4.5mcg -] 2 puff PO BID 03/31/19 Escitalopram Oxalate [Lexapro -] 20 mg PO DAILY 03/31/19 Ibuprofen [Motrin -] 600 mg PO Q6H 03/31/19 Pravastatin Sodium 20 mg PO DAILY 03/31/19 traZODone HCL [Trazodone HCl] 100 mg PO DAILY 03/31/19 Problem List - Problems (1) Arterial occlusion Assessment/Plan: 63 y/o F w/ PMHx IDDM (Insulin pump), htn, hld, PAD POD #3 doing well. 1) d/c home today 2) continue Aspirin and Plavix as outpatient 3) follow up with Dr Mena in 2 weeks time Code(s): I70.90 - UNSPECIFIED ATHEROSCLEROSIS This patient is new to me today: Yes Date on this admission: 04/07/19 Emergency Visit: Yes ED Registration Date: 03/30/19 Care time: The patient presented to the Emergency Department on the above date and was hospitalized for further evaluation of their emergent condition. Critical Care patient: No - Discharge Referral Referred to [facility] Med P.C.: No
[2019-04-07] MEDS: SODIUM CHLORIDE 0.45% 1,000 ML IV SCH (13:24)
--- NOTE | 2019-04-07 14:00 | PN ---
Physical Exam: SUBJECTIVE: Patient seen and examined. C/o mild constipation, given Senna. OBJECTIVE: Vital Signs Period Temp Pulse Resp BP Sys/Mendoza Pulse Ox Last 24 Hr 99.2 F-99.8 F 97-105 20-20 134-152/67-79 97 GENERAL: The patient is awake, alert, and fully oriented, in no acute distress. LUNGS: Breath sounds equal, clear to auscultation bilaterally, no wheezes, no crackles, no accessory muscle use. HEART: Regular rate and rhythm, S1, S2 without murmurs ABDOMEN: Soft, nontender, nondistended, normoactive bowel sounds. Midline scar noted. EXTREMITIES: LLE pulses 1+. Pt able to move LLE limb and toes. 2+ pulses present RLE. Sensory intact b/l UE & LE. SKIN: L femoral dressing C/D/I. No rashes/ dry skin/ scars noted. Few nevi present on LLEs. Laboratory Results - last 24 hr Laboratory Last Values WBC 11.4 K/mm3 (4.0-10.0) H 04/07/19 07:00 RBC 3.78 M/mm3 (3.60-5.2) 04/07/19 07:00 Hgb 10.8 GM/dL (10.7-15.3) 04/07/19 07:00 Hct 32.8 % (32.4-45.2) 04/07/19 07:00 MCV 86.7 fl (80-96) 04/07/19 07:00 MCH 28.7 pg (25.7-33.7) 04/07/19 07:00 MCHC 33.0 g/dl (32.0-36.0) 04/07/19 07:00 RDW 14.1 % (11.6-15.6) 04/07/19 07:00 Plt Count 270 K/MM3 (134-434) 04/07/19 07:00 MPV 8.6 fl (7.5-11.1) 04/07/19 07:00 Absolute Neuts (auto) 8.8 K/mm3 (1.5-8.0) H 04/07/19 07:00 Neutrophils % 77.4 % (42.8-82.8) 04/07/19 07:00 Lymphocytes % 11.5 % (8-40) D 04/07/19 07:00 Monocytes % 9.9 % (3.8-10.2) 04/07/19 07:00 Eosinophils % 0.7 % (0-4.5) 04/07/19 07:00 Basophils % 0.5 % (0-2.0) 04/07/19 07:00 Nucleated RBC % 0 % (0-0) 04/07/19 07:00 PT with INR 9.60 SEC (9.7-13.0) L 03/30/19 14:32 INR 0.82 (0.83-1.09) L 03/30/19 14:32 PTT (Actin FS) 29.3 SECONDS (25.2-36.5) 03/30/19 14:32 Sodium 134 mmol/L (136-145) L 04/07/19 07:00 Potassium 4.2 mmol/L (3.5-5.1) 04/07/19 07:00 Chloride 100 mmol/L (98-107) 04/07/19 07:00 Carbon Dioxide 24 mmol/L (21-32) 04/07/19 07:00 Anion Gap 10 MMOL/L (8-16) 04/07/19 07:00 BUN 17.7 mg/dL (7-18) 04/07/19 07:00 Creatinine 1.7 mg/dL (0.55-1.3) H 04/07/19 07:00 Est GFR (CKD-EPI)AfAm 36.81 04/07/19 07:00 Est GFR (CKD-EPI)NonAf 31.76 04/07/19 07:00 POC Glucometer 195 UNITS (80-120) 04/07/19 12:23 Random Glucose 197 mg/dL (74-106) H 04/07/19 07:00 Hemoglobin A1c % 9.1 % (4.2-6.3) H 04/01/19 06:45 Calcium 8.8 mg/dL (8.5-10.1) 04/07/19 07:00 Phosphorus 3.3 mg/dL (2.5-4.9) 04/07/19 07:00 Magnesium 2.1 mg/dL (1.8-2.4) 04/07/19 07:00 Total Bilirubin 1.0 mg/dL (0.2-1) 04/07/19 07:00 AST 63 U/L (15-37) H 04/07/19 07:00 ALT 41 U/L (13-61) 04/07/19 07:00 Alkaline Phosphatase 103 U/L (45-117) 04/07/19 07:00 Total Protein 6.5 g/dl (6.4-8.2) 04/07/19 07:00 Albumin 2.8 g/dl (3.4-5.0) L 04/07/19 07:00 Urine Color Yellow 04/06/19 22:35 Urine Appearance Clear 04/06/19 22:35 Urine pH 7.0 (5.0-8.0) D 04/06/19 22:35 Ur Specific [place] 1.013 (1.010-1.035) 04/06/19 22:35 Urine Protein 1+ (NEGATIVE) H 04/06/19 22:35 Urine Glucose (UA) 2+ (NEGATIVE) H 04/06/19 22:35 Urine Ketones Negative (NEGATIVE) 04/06/19 22:35 Urine Blood Negative (NEGATIVE) 04/06/19 22:35 Urine Nitrite Negative (NEGATIVE) 04/06/19 22:35 Urine Bilirubin Negative (NEGATIVE) 04/06/19 22:35 Urine Urobilinogen 0.2 mg/dL (0.2-1.0) 04/06/19 22:35 Ur Leukocyte Esterase Negative (NEGATIVE) 04/06/19 22:35 Urine WBC (Auto) 1 /hpf (0-5) 04/06/19 22:35 Urine RBC (Auto) 1 /hpf (0-4) 04/06/19 22:35 Urine Casts (Auto) 1 /lpf (0-8) 04/06/19 22:35 U Epithel Cells (Auto) 4.5 /HPF (0-5/HPF) 04/06/19 22:35 Urine Bacteria (Auto) 6.9 /hpf (NEGATIVE) 04/06/19 22:35 Ur Random Creatinine 66.0 mg/dL (30-150) 04/06/19 22:35 Ur Random Sodium 95 MMOL/L (40-220) 04/06/19 22:35 Ur Random Potassium 27.0 MMOL/L (25-125) 04/06/19 22:35 Ur Random Chloride 102 MMOL/L (110-250) L 04/06/19 22:35 Blood Type A NEGATIVE 04/04/19 06:56 Antibody Screen Negative 04/04/19 06:56 Crossmatch See Detail 04/04/19 06:56 Active Medications Current Medications Aspirin (Asa -) 81 mg PO DAILY [facility] Last Admin: 04/07/19 09:05 Dose: 81 mg Atorvastatin Calcium (Lipitor -) 10 mg PO HS [facility] Last Admin: 04/06/19 22:07 Dose: 10 mg Clopidogrel Bisulfate (Plavix -) 75 mg PO DAILY [facility] Last Admin: 04/07/19 09:05 Dose: 75 mg Docusate Sodium (Colace -) 100 mg PO BID [facility] Last Admin: 04/07/19 09:05 Dose: 100 mg Heparin Sodium (Porcine) (Heparin -) 5,000 unit SQ BID [facility] Last Admin: 04/07/19 09:05 Dose: 5,000 unit Sodium Chloride (1/2 Normal Saline) 1,000 mls @ 100 mls/hr IV ASDIR [facility] Last Admin: 04/07/19 13:24 Dose: Not Given Insulin Aspart (Novolog Vial Sliding Scale -) 1 vial SQ [facility]; Protocol Last Admin: 04/07/19 13:24 Dose: 2 units Insulin Detemir (Levemir Vial) 12 units SQ AM [facility] Last Admin: 04/07/19 06:31 Dose: 12 units Non-Formulary Medication (Linaclotide [Linzess]) 145 mcg PO DAILY [facility] Ondansetron HCl (Zofran Injection) 4 mg IVPUSH Q6H PRN PRN Reason: NAUSEA AND/OR VOMITING Oxycodone HCl (Roxicodone -) 5 mg PO Q4H PRN PRN Reason: PAIN LEVEL 1-5 Last Admin: 04/07/19 09:03 Dose: 5 mg Polyethylene Glycol (Miralax (For Daily Use) -) 17 gm PO DAILY PRN PRN Reason: CONSTIPATION Promethazine HCl (Phenergan Injection -) 12.5 mg IVPUSH Q6H PRN PRN Reason: NAUSEA-FOR RESCUE AFTER 15 MIN Senna (Senna -) 1 tab PO BID [facility] Last Admin: 04/07/19 12:57 Dose: 1 tab ASSESSMENT/PLAN: 63 y.o. F PMH DM on insulin pump, HTN, PAS s/p endarterctomy, found to have left [employer]IE[employer] ENGINEERING DIVISION & rt SFA occlusion on LE CTA. #Left [employer]INE[employer]ING [employer] & rt SFA arterial occlusion -Post-op day #3 S/p left femoral endarterectomy w/ aortic graft placement -Pain control Oxy q4h PRN, Tylenol -Promethazine 12.5mg IV q6h PRN for nausea -C/w Plavix 75mg PO daily #Uncontrolled DM -POCs 200's -Levemir 10 SQ daily -On insulin pump- Dr. Lopez senior clinical study manager -ISS #DAMIEN -Latest Cr 1.7; pt will repeat Cr levels with outpatient PCP Dr. Anderson -Avoid NSAIDS -May be d.t contrast -Nephro following -FeNa 1.8% #HTN -Holding Lisinopril #HLD -Atorvastatin 10mg PO daily #FEN -1/2 NS @ 100mL/hr -Trend BMP -Diabetic diet #DVT PPX -Heparin SQ Visit type - Emergency Visit Emergency Visit: No - New Patient This patient is new to me today: No - Critical Care Critical Care patient: No ATTENDING PHYSICIAN STATEMENT I saw and evaluated the patient. I reviewed the resident's note and discussed the case with the resident. I agree with the resident's findings and plan as documented. SUBJECTIVE: OBJECTIVE: ASSESSMENT AND PLAN:
[2019-04-07 14:32] VITALS: BP 131/64; PULSE 95; TEMP 99
--- NOTE | 2019-04-07 15:30 | PN ---
Progress Note (short form) - Note Progress Note: s: no cp sob palps dizzy Current Medications Aspirin (Asa -) 81 mg PO DAILY [facility] Last Admin: 04/07/19 09:05 Dose: 81 mg Atorvastatin Calcium (Lipitor -) 10 mg PO HS [facility] Last Admin: 04/06/19 22:07 Dose: 10 mg Clopidogrel Bisulfate (Plavix -) 75 mg PO DAILY [facility] Last Admin: 04/07/19 09:05 Dose: 75 mg Docusate Sodium (Colace -) 100 mg PO BID [facility] Last Admin: 04/07/19 09:05 Dose: 100 mg Heparin Sodium (Porcine) (Heparin -) 5,000 unit SQ BID [facility] Last Admin: 04/07/19 09:05 Dose: 5,000 unit Sodium Chloride (1/2 Normal Saline) 1,000 mls @ 100 mls/hr IV ASDIR [facility] Last Admin: 04/07/19 13:24 Dose: Not Given Insulin Aspart (Novolog Vial Sliding Scale -) 1 vial SQ ACHS [facility]; Protocol Last Admin: 04/07/19 13:24 Dose: 2 units Insulin Detemir (Levemir Vial) 12 units SQ AM [facility] Last Admin: 04/07/19 06:31 Dose: 12 units Non-Formulary Medication (Linaclotide [Linzess]) 145 mcg PO DAILY [facility] Ondansetron HCl (Zofran Injection) 4 mg IVPUSH Q6H PRN PRN Reason: NAUSEA AND/OR VOMITING Oxycodone HCl (Roxicodone -) 5 mg PO Q4H PRN PRN Reason: PAIN LEVEL 1-5 Last Admin: 04/07/19 09:03 Dose: 5 mg Polyethylene Glycol (Miralax (For Daily Use) -) 17 gm PO DAILY PRN PRN Reason: CONSTIPATION Promethazine HCl (Phenergan Injection -) 12.5 mg IVPUSH Q6H PRN PRN Reason: NAUSEA-FOR RESCUE AFTER 15 MIN Senna (Senna -) 1 tab PO BID [facility] Last Admin: 04/07/19 12:57 Dose: 1 tab Vital Signs Period Temp Pulse Resp BP Sys/Mendoza Pulse Ox Last 24 Hr 99.0 F-99.8 F 95-105 20-20 131-152/64-79 97 Constitutional: Yes: No Distress, Calm Eyes: Yes: Conjunctiva Clear Cardiovascular: Yes: Regular Rate and Rhythm Respiratory: Yes: CTA Bilaterally Gastrointestinal: Yes: Soft Edema: No Neurological: Yes: Alert, Oriented no jaundice diaphoresis - ....Imaging EKG: Image Reviewed Other: Other (LEXISCAN Stress: no ischemia, normalEF, no TID) Assessment/Plan DATA: EKG sinus, nl intervals, lateral TWI stable compared to prior CTA: narrow, thrombus filled distal aorta. Occlusion of the left REAL ESTATE ASSOCIATE ATTORNEY at site of prior endarterectomy with patent SFA, DFA, popliteal and tibial arteries Right SFA occluded with reconstitution of popliteal artery IMP/REC: 1. Preop evaluation, PAD - patient is asymptomatic however limited functional status - nuclear stress test here showed no ischemia, normal LVEF and no evidence TID. -now s/p left fem endarterectomy and covered aortic stent, feeling well -cont statin, on dapt per vascular 2. harlan: -?laura, renal following, trend cr - holding ACEI, monitor BP
--- NOTE | 2019-04-07 15:46 | PN ---
Progress Note, Physician History of Present Illness: Pt seen and examined at bedside. She is awake and alert. She denies foot pain. - Current Medication List Current Medications: Active Medications Aspirin (Asa -) 81 mg PO DAILY [facility] Last Admin: 04/07/19 09:05 Dose: 81 mg Atorvastatin Calcium (Lipitor -) 10 mg PO HS [facility] Last Admin: 04/06/19 22:07 Dose: 10 mg Clopidogrel Bisulfate (Plavix -) 75 mg PO DAILY [facility] Last Admin: 04/07/19 09:05 Dose: 75 mg Docusate Sodium (Colace -) 100 mg PO BID [facility] Last Admin: 04/07/19 09:05 Dose: 100 mg Heparin Sodium (Porcine) (Heparin -) 5,000 unit SQ BID [facility] Last Admin: 04/07/19 09:05 Dose: 5,000 unit Sodium Chloride (1/2 Normal Saline) 1,000 mls @ 100 mls/hr IV ASDIR [facility] Last Admin: 04/07/19 13:24 Dose: Not Given Insulin Aspart (Novolog Vial Sliding Scale -) 1 vial SQ [facility]; Protocol Last Admin: 04/07/19 13:24 Dose: 2 units Insulin Detemir (Levemir Vial) 12 units SQ AM [facility] Last Admin: 04/07/19 06:31 Dose: 12 units Non-Formulary Medication (Linaclotide [Linzess]) 145 mcg PO DAILY [facility] Ondansetron HCl (Zofran Injection) 4 mg IVPUSH Q6H PRN PRN Reason: NAUSEA AND/OR VOMITING Oxycodone HCl (Roxicodone -) 5 mg PO Q4H PRN PRN Reason: PAIN LEVEL 1-5 Last Admin: 04/07/19 09:03 Dose: 5 mg Polyethylene Glycol (Miralax (For Daily Use) -) 17 gm PO DAILY PRN PRN Reason: CONSTIPATION Promethazine HCl (Phenergan Injection -) 12.5 mg IVPUSH Q6H PRN PRN Reason: NAUSEA-FOR RESCUE AFTER 15 MIN Senna (Senna -) 1 tab PO BID [facility] Last Admin: 04/07/19 12:57 Dose: 1 tab - Objective Vital Signs: Vital Signs Temperature 99.0 F 04/07/19 14:31 Pulse Rate 95 H 04/07/19 14:31 Respiratory Rate 20 04/07/19 14:31 Blood Pressure 131/64 07/18/19 14:31 O2 Sat by Pulse Oximetry (%) 97 04/06/19 21:00 Constitutional: Yes: Calm Eyes: Yes: Conjunctiva Clear HENT: Yes: Atraumatic Cardiovascular: Yes: S1, S2 Respiratory: Yes: CTA Bilaterally Gastrointestinal: Yes: Soft Genitourinary: Yes: WNL Musculoskeletal: Yes: WNL Edema: No Neurological: Yes: Oriented Psychiatric: Yes: Oriented Labs: CBC, BMP 04/07/19 07:00 04/07/19 07:00 INR, PTT INR 0.82 (0.83-1.09) L 03/30/19 14:32 Problem List - Problems (1) DAMIEN (acute kidney injury) Code(s): N17.9 - ACUTE KIDNEY FAILURE, UNSPECIFIED (2) Arterial occlusion Code(s): I70.90 - UNSPECIFIED ATHEROSCLEROSIS (3) Leg pain, left Code(s): M79.605 - PAIN IN LEFT LEG Assessment/Plan Current Medications Generic Name Dose Route Start Last Admin Trade Name Reba PRN Reason Stop Dose Admin Aspirin 81 mg 04/05/19 10:00 04/07/19 09:05 Asa - PO 81 mg DAILY [facility] Administration Atorvastatin Calcium 10 mg 04/05/19 22:00 04/06/19 22:07 Lipitor - PO 10 mg HS [facility] Administration Clopidogrel Bisulfate 75 mg 04/05/19 10:00 04/07/19 09:05 Plavix - PO 75 mg DAILY [facility] Administration Docusate Sodium 100 mg 04/05/19 10:00 04/07/19 09:05 Colace - PO 100 mg BID [facility] Administration Heparin Sodium (Porcine) 5,000 unit 04/05/19 10:00 04/07/19 09:05 Heparin - SQ 5,000 unit BID [facility] Administration Sodium Chloride 1,000 mls @ 100 mls/hr 04/06/19 13:04 04/07/19 13:24 1/2 Normal Saline IV Not Given ASDIR [facility] Insulin Aspart 1 vial 04/05/19 11:00 04/07/19 13:24 Novolog Vial Sliding Scale - SQ 2 units ACHS [facility] Administration Protocol Insulin Detemir 12 units 04/07/19 07:00 04/07/19 06:31 Levemir Vial SQ 12 units AM [facility] Administration Non-Formulary Medication 145 mcg 04/05/19 10:00 Linaclotide [Linzess] PO DAILY [facility] Ondansetron HCl 4 mg 04/04/19 17:29 Zofran Injection IVPUSH Q6H PRN NAUSEA AND/OR VOMITING Oxycodone HCl 5 mg 04/05/19 08:17 04/07/19 09:03 Roxicodone - PO 5 mg Q4H PRN Administration PAIN LEVEL 1-5 Polyethylene Glycol 17 gm 04/05/19 09:32 Miralax (For Daily Use) - PO DAILY PRN CONSTIPATION Promethazine HCl 12.5 mg 04/04/19 17:29 Phenergan Injection - IVPUSH Q6H PRN NAUSEA-FOR RESCUE AFTER 15 MIN Senna 1 tab 04/07/19 10:00 04/07/19 12:57 Senna - PO 1 tab BID [facility] Administration Laboratory Tests 04/06/19 22:35 Urine Protein 1+ H Urine Blood Negative Impression 1. DAMIEN 2. PVD 3. smoking hx 4. nsiad use 5. HTN 6. HLD 7. DM Plan - renal function is improving - cont with fluids - repeat labs in am - likely laura - avoid nsaids
--- NOTE | 2019-04-07 18:51 | PN ---
Progress Note (short form) - Note Progress Note: SUBJECTIVE: Feels well. Continued improvement in L foot/leg discomfort. No cough/sputum/dysuria/infection at wound site. OBJECTIVE: Tmax 99.8. Hemodynamically Stable. Last Vital Signs Temp Pulse Resp BP Pulse Ox 99.0 F 95 H 20 131/64 97 04/07/19 14:31 04/07/19 14:31 04/07/19 14:31 04/07/19 14:31 04/06/19 21:00 Heart - S1, S2, RRR Lungs - clear to auscultation Abdomen - Soft, non-tender. Bowel Sounds normal. Extremities - no edema, no calf tenderness. Extremities warm, well perfused, groin wounds dressings dry. Laboratory Results - last 24 hr 04/04/19 04/06/19 04/06/19 06:56 22:35 22:35 WBC RBC Hgb Hct MCV MCH MCHC RDW Plt Count MPV Absolute Neuts (auto) Neutrophils % Lymphocytes % Monocytes % Eosinophils % Basophils % Nucleated RBC % Sodium Potassium Chloride Carbon Dioxide Anion Gap BUN Creatinine Est GFR (CKD-EPI)AfAm Est GFR (CKD-EPI)NonAf POC Glucometer Random Glucose Calcium Phosphorus Magnesium Total Bilirubin AST ALT Alkaline Phosphatase Total Protein Albumin Urine Color Yellow Urine Appearance Clear Urine pH 7.0 D Ur Specific Allen 1.013 Urine Protein 1+ H Urine Glucose (UA) 2+ H Urine Ketones Negative Urine Blood Negative Urine Nitrite Negative Urine Bilirubin Negative Urine Urobilinogen 0.2 Ur Leukocyte Esterase Negative Urine WBC (Auto) 1 Urine RBC (Auto) 1 Urine Casts (Auto) 1 U Epithel Cells (Auto) 4.5 Urine Bacteria (Auto) 6.9 Ur Random Creatinine 66.0 Ur Random Sodium 95 Ur Random Potassium Ur Random Chloride Crossmatch See Detail 04/06/19 04/07/19 04/07/19 22:35 05:53 07:00 WBC RBC Hgb Hct MCV MCH MCHC RDW Plt Count MPV Absolute Neuts (auto) Neutrophils % Lymphocytes % Monocytes % Eosinophils % Basophils % Nucleated RBC % Sodium 134 L Potassium 4.2 Chloride 100 Carbon Dioxide 24 Anion Gap 10 BUN 17.7 Creatinine 1.7 H Est GFR (CKD-EPI)AfAm 36.81 Est GFR (CKD-EPI)NonAf 31.76 POC Glucometer 214 Random Glucose 197 H Calcium 8.8 Phosphorus 3.3 Magnesium 2.1 Total Bilirubin 1.0 AST 63 H ALT 41 Alkaline Phosphatase 103 Total Protein 6.5 Albumin 2.8 L Urine Color Urine Appearance Urine pH Ur Specific Allen Urine Protein Urine Glucose (UA) Urine Ketones Urine Blood Urine Nitrite Urine Bilirubin Urine Urobilinogen Ur Leukocyte Esterase Urine WBC (Auto) Urine RBC (Auto) Urine Casts (Auto) U Epithel Cells (Auto) Urine Bacteria (Auto) Ur Random Creatinine Ur Random Sodium 93 Ur Random Potassium 27.0 Ur Random Chloride 102 L Crossmatch 04/07/19 04/07/19 07:00 12:23 WBC 11.4 H RBC 3.78 Hgb 10.8 Hct 32.8 MCV 86.7 MCH 28.7 MCHC 33.0 RDW 14.1 Plt Count 270 MPV 8.6 Absolute Neuts (auto) 8.8 H Neutrophils % 77.4 Lymphocytes % 11.5 D Monocytes % 9.9 Eosinophils % 0.7 Basophils % 0.5 Nucleated RBC % 0 Sodium Potassium Chloride Carbon Dioxide Anion Gap BUN Creatinine Est GFR (CKD-EPI)AfAm Est GFR (CKD-EPI)NonAf POC Glucometer 195 Random Glucose Calcium Phosphorus Magnesium Total Bilirubin AST ALT Alkaline Phosphatase Total Protein Albumin Urine Color Urine Appearance Urine pH Ur Specific Allen Urine Protein Urine Glucose (UA) Urine Ketones Urine Blood Urine Nitrite Urine Bilirubin Urine Urobilinogen Ur Leukocyte Esterase Urine WBC (Auto) Urine RBC (Auto) Urine Casts (Auto) U Epithel Cells (Auto) Urine Bacteria (Auto) Ur Random Creatinine Ur Random Sodium Ur Random Potassium Ur Random Chloride Crossmatch Current Medications Generic Name Dose Route Start Last Admin Trade Name Freq PRN Reason Stop Dose Admin Aspirin 81 mg 04/05/19 10:00 04/07/19 09:05 Asa - PO 81 mg DAILY KELLEN Administration Atorvastatin Calcium 10 mg 04/05/19 22:00 04/06/19 22:07 Lipitor - PO 10 mg HS KELLEN Administration Clopidogrel Bisulfate 75 mg 04/05/19 10:00 04/07/19 09:05 Plavix - PO 75 mg DAILY KELLEN Administration Docusate Sodium 100 mg 04/05/19 10:00 04/07/19 09:05 Colace - PO 100 mg BID KELLEN Administration Heparin Sodium (Porcine) 5,000 unit 04/05/19 10:00 04/07/19 09:05 Heparin - SQ 5,000 unit BID KELLEN Administration Sodium Chloride 1,000 mls @ 100 mls/hr 04/06/19 13:04 04/07/19 13:24 1/2 Normal Saline IV Not Given ASDIR [facility] Insulin Aspart 1 vial 04/05/19 11:00 04/07/19 18:23 Novolog Vial Sliding Scale - SQ Not Given ACHS [facility] Protocol Insulin Detemir 12 units 04/07/19 07:00 04/07/19 06:31 Levemir Vial SQ 12 units AM KELLEN Administration Non-Formulary Medication 145 mcg 04/05/19 10:00 Linaclotide [Linzess] PO DAILY KELLEN Ondansetron HCl 4 mg 04/04/19 17:29 Zofran Injection IVPUSH Q6H PRN NAUSEA AND/OR VOMITING Oxycodone HCl 5 mg 04/05/19 08:17 04/07/19 09:03 Roxicodone - PO 5 mg Q4H PRN Administration PAIN LEVEL 1-5 Polyethylene Glycol 17 gm 04/05/19 09:32 Miralax (For Daily Use) - PO DAILY PRN CONSTIPATION Promethazine HCl 12.5 mg 04/04/19 17:29 Phenergan Injection - IVPUSH Q6H PRN NAUSEA-FOR RESCUE AFTER 15 MIN Senna 1 tab 04/07/19 10:00 04/07/19 12:57 Senna - PO 1 tab BID KELLEN Administration ASSESSMENT AND PLAN: 63 year old female with HTN, DM 2, PAD s/p Endarterectomy, HLD, presented to the ER with cool L foot, found to have significant stenosis of L [employer]ICE [employer]OR and R SFA. 1. Subacute L Limb iscehmia POD 3 s/p L femoral endarterectomy with aortic graft placement. Extremity warm, well perfused. Continue Aspirin/Plavix/Statin Will culture if any further fevers. Vascular Sx follow up with Dr. Mena as out-patient. 2. DM 2 - previously on insulin pump at home. Covered with Levemir and Novolog sliding scale. Discussed with patient's Endocrinology office to enquire re: insulin for pump - recommends discharge on sliding scale insulin with office follow up. 3. DAMIEN, etiology unclear, possible contrast induced nephropathy, renal function improving. Renal US - no hydronephrosis. Nephrology consulted. Recommend adequate oral intake and repeat Renal function testing 04/10/19 and Nephrology out-patient follow up. Lisinopril and HCTZ held. 4. HTN - Controlled. Lisinopril and HCTZ held sec to DAMIEN. 5. HLD - Continue Statin. 6. HYPERPLASIA OF ADRENALS - for out-patient follow up. 7. L RENAL CYST 1.5CM - For out-patient follow up. 8. R ADNEXAL HYDROSALPINX - recommend out-patient Gynecology follow up. Visit type - Emergency Visit Emergency Visit: Yes ED Registration Date: 03/30/19 Care time: The patient presented to the Emergency Department on the above date and was hospitalized for further evaluation of their emergent condition. - New Patient This patient is new to me today: No - Critical Care Critical Care patient: No - Discharge Referral Referred to [facility] Med P.C.: No
== END 2019-04-07 18:05 | disposition home or self-care (01) | DRG 271 ==
LOC: JER 12:25 → JERBED 14:22 → J7W 16:46 → J8W 04-04 20:41
PROVIDERS: ADMIT Surgery
PROC: 047034Z Dilation of Abdominal Aorta with Drug-eluting Intraluminal Device, Percutaneous Approach (ICD-10-PCS; 2019-04-04)
PROC: 04CJ3ZZ Extirpation of Matter from Left External Iliac Artery, Percutaneous Approach (ICD-10-PCS; 2019-04-04)
PROC: 04UL3JZ Supplement Left Femoral Artery with Synthetic Substitute, Percutaneous Approach (ICD-10-PCS; 2019-04-04)
PROC: B41DZZZ Fluoroscopy of Aorta and Bilateral Lower Extremity Arteries (ICD-10-PCS; 2019-04-04)
PROC: [UNRECOGNIZED PROCEDURE] (principal; 2019-04-04 14:00)
DX: I74.3 Embolism and thrombosis of arteries of the lower extremities (principal); N17.9 Acute kidney failure, unspecified; I74.19 Embolism and thrombosis of other parts of aorta; I70.0 Atherosclerosis of aorta; I77.1 Stricture of artery; E11.65 Type 2 diabetes mellitus with hyperglycemia; E11.40 Type 2 diabetes mellitus with diabetic neuropathy, unspecified; I70.292 Other atherosclerosis of native arteries of extremities, left leg; I10 Essential (primary) hypertension; E78.5 Hyperlipidemia, unspecified; Z46.81 Encounter for fitting and adjustment of insulin pump; Z87.891 Personal history of nicotine dependence; E86.0 Dehydration; Z79.4 Long term (current) use of insulin; E27.8 Other specified disorders of adrenal gland; N28.1 Cyst of kidney, acquired; N70.11 Chronic salpingitis
CPT/HCPCS: 36415; 71045-TC-FY; 75635-TC; 76000-TC-FY; 76775-TC; 76856-TC; 78452-TC; 80048; 80053; 81003; 82436; 82565; 82962; 83036; 83735; 84100; 84133; 84300; 85025; 85610; 85730; 86850; 86900; 86901; 86922; 88304-TC; 93005; 93010; 93017; 94010; 94760; 96372; 97116-GP; 97162-GP; 99281-25; 99282-25; A9502; J1644; J2785; J7030

== ENCOUNTER 2020-09-01 15:03 | Emergency (ER) | payer OTHER ==
[2020-09-01 15:26] VITALS: BP 180/79; PULSE 81; TEMP 98.2; BMI 29.8
[2020-09-01 16:46] LABS: THROAT:GRP A STREP ANTIGEN Negative (Negative)
== END 2020-09-01 16:54 | disposition home or self-care (01) ==
LOC: JER 15:03
DX: R07.0 Pain in throat (principal)
CPT/HCPCS: 87070; 87880; 99284-25; C9803; U0003

== ENCOUNTER 2021-12-11 10:04 | Emergency (ER) | payer OTHER ==
[2021-12-11 10:14] VITALS: TEMP 98.3; BMI 28.8
[2021-12-11] MEDS ORDERED: LIDOCAINE 5% TOPICAL PATCH TP ONE (11:31)
[2021-12-11] MEDS ORDERED: diazePAM 2 MG TABLET PO ONE (11:31)
[2021-12-11] MEDS ORDERED: KETOROLAC TROMETHAMINE 30 MG/1 ML VIAL IM ONE (11:31)
[2021-12-11] MEDS ORDERED: LIDOCAINE 5% TOPICAL PATCH ONE (11:34)
[2021-12-11] MEDS ORDERED: diazePAM 2 MG TABLET ONE (11:34)
[2021-12-11] MEDS ORDERED: KETOROLAC TROMETHAMINE 30 MG/1 ML VIAL ONE (11:35)
[2021-12-11 12:23] VITALS: BP 165/77; PULSE 86
[2021-12-11] MEDS ORDERED: LIDOCAINE PATCH REMOVAL MC ONE (22:00)
== END 2021-12-11 12:23 | disposition home or self-care (01) ==
LOC: JERFT 10:04
PROC: 3E023GC Introduction of Other Therapeutic Substance into Muscle, Percutaneous Approach (ICD-10-PCS; principal; 2021-12-11)
DX: S46.912A Strain of unspecified muscle, fascia and tendon at shoulder and upper arm level, left arm, initial encounter (principal); Y99.9 Unspecified external cause status
CPT/HCPCS: 99284-25